=== PATIENT | female | born 1935 | race Caucasian/White ===

== ENCOUNTER 2019-06-01 08:44 | Inpatient (IN) | payer MEDICARE ==
[~2019-06-01] VITALS: Ht 157.5 cm; Wt 53.1 kg
--- NOTE | 2019-06-01 10:00 | NUR ---
The patient, MEGAN ELLIOTT, 83 y/o, F admitted by MARY RECINOS MD, was given written information regarding hospital policies, unit procedures and contact persons. Valuables checked and left in room with patient. Patient arrived to unit by EMS to room 252. Patient alert and oriented. Telemetry monitored applied. Patient in afib with rate of 99. Patient on room air, no complaints of shortness of breath. NS running at 100 mls/hr from EMS. Family notified of admission. Patient resting comfortably in bed. Call light within reach. Will continue to monitor.
[2019-06-01 10:46] VITALS: BP 137/71
[2019-06-01] MEDS ORDERED: LISI-334 PO (11:27)
[2019-06-01] MEDS ORDERED: PHEN300C4 PO (11:27)
[2019-06-01] MEDS ORDERED: AMLO5TAB10 PO (11:27)
[2019-06-01] MEDS ORDERED: FOLI1TAB16 PO (11:27)
[2019-06-01] MEDS: METOPROLOL TART IMMED RELEASE 25 MG TABLET. PO SCH ×2 (13:04→21:05)
--- NOTE | 2019-06-01 13:10 | PDOC2 ---
CARDIAC CONSULT DATE OF CONSULT Date of Consult DATE: 06/01/19 TIME: 13:03 REASON FOR CONSULT Reason for Consult: New onset AFIB REFERRING PHYSICIAN Referring Physician: Cas SOURCE Source: Chart review, Patient HISTORY OF PRESENT ILLNESS HISTORY OF PRESENT ILLNESS This is a pleasant 83 yo female admitted for complains of fall. She was initially at [facility] and was noted with right hip fracture in relation to her fall. Also she was noted with controllled AFIB which is a new finding. No complains of chest pain palpitations or frequent dizzy spells or passing out. She has hx of seizures and takes dilatin and sees Dr. Elliott. She had a stroke about 3 yrs ago. She has this head bobbing and ataxic features since her stroke and daughter whom she lives with could not tell any difference iof this is worse or not. She definitely is not complaint with walker and cane use. In the last 1 weeks she has fallen 3x. No lost of consciousness. This time resulted to rig ht hip fracture and some other time not too long ago resulted to mild broken ankle requiring a cam boot. No CAD, bleeding history, VTE and no known stress test nor outpt event monitor use. On her recent fall she said that her foot got caught on a blanket and fell backward and hit her head on the floor as well and dazed afterwards. No MCKENNA, vertigo, dizziness. No recent focal deficits per daughter. No nausea vomiting, diarrhea. PAST MEDICAL HISTORY Cardiovascular: HTN Pulmonary: No pertinent hx CENTRAL NERVOUS SYSTEM: Seizure GI: No pertinent hx Heme/Onc: No pertinent hx Hepatobiliary: No pertinent hx Psych: No pertinent hx Musculoskeletal: Osteoarthritis Rheumatologic: No pertinent hx Infectious disease: No pertinent hx ENT: No pertinent hx Renal/: Other (hyponatremia) Endocrine: No pertinent hx Dermatology: No pertinent hx PAST SURGICAL HISTORY Past Surgical History: No pertinent history FAMILY HISTORY Family History: Coronary Artery Disease (mother) SOCIAL HISTORY Smoke: Quit ALCOHOL: none Drugs: None ALLERGIES ALLERGIES: Coded Allergies: No Known Drug Allergies (Unverified , 06/01/19) ROS Review of System 14 point ROS evaluated with pertinent positives noted per HPI PHYSICAL EXAM General: Alert, Oriented X3, Cooperative HEENT: Atraumatic, Mucous membr. moist/pink Heart: Normal S1, Normal S2, Other (AFIB; 2/6 systolic murmur to LLS border) Abdomen: Soft, No tenderness Extremities: No cyanosis, Other (1+ bilateral LE pitting edema) Skin: No breakdown, No significant lesion Neuro: Normal speech, Sensation intact, Other Psych/Mental Status: Mental status NL, Mood NL MUSCULOSKELETAL: Osteoarthritic changes both hands, Other VITALS/I&O VITALS/I&O: Vital Signs Date Time Temp Pulse Resp B/P (MAP) Pulse Ox O2 Delivery O2 Flow Rate FiO2 06/01/19 10:54 Room Air 06/01/19 10:46 97.6 119 16 137/71 (93) 95 97.6 ASSESSMENT/PLAN ASSESSMENT/PLAN 1. Traumatic mechanical fall: right hip fracture 2. New AFIB rate controlled 3. Hyponatremia; appears chronic 4. Hx of seizure and on dilantin 5. HTN: controlled 6. Ataxia/movement disorder with multiple falls: x3 in the last week. 7. Hx of CVA: no focal deficits Recommendations 1. TTE, TSH, lipids, Noncontrast head CT 2. Start on metoprolol. Hold other BP meds pending BP trend. No ACEi or HCTZ. 3. Discussed significantly with daughter in regards to stroke prevention for injury and bleeding, risks and benefits. Pending head CT would prefer [facility] for stroke prevention ELMA ROWLEY APRN Jun 01, 2019 13:10
[2019-06-01] MEDS ORDERED: ONDANSETRON PF 4 MG/2 ML VIAL. IV PRN (13:15)
[2019-06-01] MEDS ORDERED: fentaNYL PF VIAL 100 MCG/2 ML VIAL IV PRN ×2 (13:15)
[2019-06-01 13:23] LABS: PROTHROMBIN TIME PATIENT 14.3 SEC (11.7-14.0)
--- NOTE | 2019-06-01 13:25 | HP ---
ADMIT DATE: 06/01/2019 HISTORY OF PRESENT ILLNESS: The patient is an 83-year-old female patient. Dictation Ends Here. MARY RECINOS MD DR: ANTWAN/zulema JOB#: [id number] / [id number]
[2019-06-01 14:09] LABS: CHOLESTEROL/HDL RATIO 1.8
--- NOTE | 2019-06-01 14:31 | HP ---
ADMIT DATE: 06/01/2019 HISTORY OF PRESENT ILLNESS: The patient is an 83-year-old female patient, who apparently was brought to the Emergency Room of [facility] by the emergency medical personnel as she apparently was complaining of pain in her right knee after a mechanical trip and fall last evening at approximately 1930. No head injury, no loss of consciousness. The patient reports being unable to ambulate secondary to pain since that time. No numbness or tingling. No hip pain. No weakness or paraesthesia. No previous history of knee injury. Movement makes it worse. She has taken nothing to help with the pain. She apparently was evaluated in the Emergency Room and she has had x-ray of the right knee joint, showed that she has oblique and cross-table lateral views of the right knee, the impression was within the constraints of osteopenia. No evidence of acute fracture. If there is persistent clinical concern of fracture, followup radiographs in 10-14 days. She has small right knee joint effusion. Her right hip x-ray; however, showed a fracture of the proximal femur, appears to be subtrochanteric fracture versus intertrochanteric. Chest x-ray showed no infiltrate, no effusion, no pneumothorax. EKG showed she was in atrial fibrillation with rate controlled, not anticoagulated. Her lab work showed she has hyponatremia with serum sodium of 126, potassium 5.1. Her prothrombin time and INR are within normal limits. The patient was transferred to [facility] to consult the orthopedic surgeon. When I saw her, she continued to complain of pain in her right hip joint, but denied any other complaint. PAST MEDICAL HISTORY: Significant for seizure disorder for which she is on phenytoin. She is known also to have hypertension. She had an episode of hyponatremia before treated. At that time, she was on lisinopril and hydrochlorothiazide. In fact, on her last admission on 10/03/2014, her serum sodium was only 118. PAST SURGICAL HISTORY: Significant for cataract extraction. FAMILY HISTORY: Positive for myocardial infarction in her mother and sudden cardiac in her father. Her sister had brain tumor and one sister has breast cancer. SOCIAL HISTORY: She is , lives with her daughter. She used to be a smoker. She quit smoking about 35 years ago. She does not drink alcohol or use any recreational drugs. 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 REVIEW OF SYSTEMS: The patient denied any blurring vision. She did have cataract extracted, but no glaucoma or macular degeneration. Denied any headache, tinnitus or sensorineural deafness. Denied any nosebleeds, stuffy nose or postnasal drip. Denied any sore throat, sore tongue, toothache, hoarseness of voice or difficulty swallowing. Denied any nausea, vomiting, diarrhea or constipation. Denied any hematemesis, melena or hematochezia. Denied any dysuria, frequency or hematuria. Denied any chest pain, shortness of breath, orthopnea or paroxysmal nocturnal dyspnea. Denied any cough, phlegm or hemoptysis. PHYSICAL EXAMINATION: GENERAL: On arrival to the Emergency Room, she looked well and was clearly in no apparent respiratory distress, pale, but no jaundice, cyanosis or thyromegaly. No jugular venous distension. No limb edema. VITAL SIGNS: Her heart rate was 115, blood pressure was 133/70, temperature was 98.4, respiratory rate 22 and oxygen saturation was 96%. HEAD, EYES, EARS, NOSE AND THROAT: Normocephalic, atraumatic. NECK: Supple. HEART: Showed normal first and second heart sounds. No gallop, rub or murmur. CHEST: Clear to auscultation. No crepitation or rhonchi. ABDOMEN: Distended, soft, nontender. NEUROLOGIC: She is awake, alert, responding appropriately. All cranial nerves intact. EXTREMITIES: She moves extremities without difficulty. She normally ambulates without assistance or assistive devices; however, now unable to walk because of pain in her right hip joint. LABORATORY DATA: Her lab work this morning showed serum sodium of 126, potassium 5.1, chloride 93, bicarbonate 28, anion gap of 5, BUN 9, creatinine 0.7, estimated GFR was 80 mL per minute. Her glucose 137, calcium was 9.2, magnesium 2. Total bilirubin, AST, ALT, alkaline phosphatase were normal. Total protein was 6.6, albumin was 3.7. Her prothrombin time was 10.8, INR of 1. Her white cell count was 10,000, hemoglobin 12, hematocrit 35, MCV 97 and platelet count 252,000. Her chest x-ray showed the heart is mildly enlarged. Atherosclerotic calcification and tortuous aorta is seen. Suspected small hiatal hernia. No lobar consolidation, no pleural effusion or pneumothorax. Has background of mild emphysematous changes. Her x-ray of the hip and right joint showed impacted right intertrochanteric hip fracture. There is involvement of the lesser trochanter with possible lesser trochanteric avulsion. The knee x-ray showed within the constraints of osteopenia. No evidence of acute fracture. If there is persistent clinical concern of fracture, followup radiographs in 10-14 days recommended. She has also a small right-sided knee joint effusion. Her daughter reported that the patient was diagnosed before with phenytoin toxicity and she also stated that her mom seems to be wobbly and unsteady. Her phenytoin was cut down from 300 to 200 by her primary care physician, Dr. Duarte, although she normally follows with Dr. Elliott every 3 months to check the level of phenytoin. She is actually on following medications: She is on demeclocycline 150 mg twice a day, aspirin 81 mg once a day, hydrocodone/APAP 5/325 one tablet every 6 hours, phenytoin sodium extended release 300 mg at bedtime, buspirone 7.5 mg twice a day, folic acid 1 mg daily and Macrobid 100 mg twice a day. PLAN: My plan is to consult the rubberizing mechanic, consult the orthopedic surgeon. I will renew all her medications, particularly her phenytoin. We will check her random Dilantin level and consult the neurologist if deemed necessary. MARY RECINOS MD DR: ANTWAN/zulema JOB#: [id number] / [id number]
[2019-06-01 15:00] VITALS: BP 120/54
--- NOTE | 2019-06-01 15:25 | RAD ---
CT HEAD WO CONTRAST Date: 06/01/2019 2:20 PM Clinical Indication: Multiple falls, history of stroke, ataxia Comparison: None. Technique: 5 mm axial tomographic images were obtained of the head without contrast. These were viewed on brain and bone windows. One or more of the following dose reduction techniques were utilized: Automated exposure control (AEC), Adjustment of mA and/or kV according to patient size, Use of iterative reconstruction technique such as ASiR, CT scan done according to ALARA and image gently/image wisely Findings: Small focus of hyperattenuation in the right frontal lobe (image 18-19). Mild generalized cerebral and cerebellar volume loss. Moderate nonspecific periventricular hypoattenuation, most commonly seen with chronic small vessel ischemic disease. Calcified atherosclerosis of the bilateral cavernous and paraclinoid internal carotid arteries and intracranial vertebral arteries. The ventricles are normal in size, shape, and morphology. The retana-white matter junction is normal. The subarachnoid cisterns are patent. Mild sphenoid, frontal, and ethmoid sinus mucosal thickening. The visualized portions of the orbits and globes are normal. The mastoid air cells are clear. The starbucks clerk topogram shows no lytic lesion or fracture. Impression: Small focus of hyperattenuation in the right frontal lobe, which may represent acute blood products given history of falls. Moderate chronic small vessel ischemic disease and moderate cerebral volume loss. Mild cerebral volume loss. Moderate chronic small vessel ischemic disease. Electronically signed by: Senthil Watts MD (06/01/2019 3:22 PM) [id number]
--- NOTE | 2019-06-01 15:58 | CARD ---
MR#: [id number] Date of Study: 06/01/2019 Ordering Physician: ELMA ROWLEY, Referring Physician: MARY RECINOS, Tech: Tere Tamayo APPROVED REPORT EXAM: Two-dimensional and M-mode echocardiogram with Doppler and color Doppler. Other Information Quality : AverageHR: 95bpm INDICATION Arrhythmia 2D DIMENSIONS RVDd3.0 (2.9-3.5cm)Left Atrium(2D)3.8 (1.6-4.0cm) IVSd2.0 (0.7-1.1cm)Aortic Root(2D)3.0 (2.0-3.7cm) LVDd4.1 (3.9-5.9cm)LVOT Diameter2.0 (1.8-2.4cm) PWd1.0 (0.7-1.1cm)LVDs2.3 (2.5-4.0cm) FS (%) 38.8 %SV40.5 ml Aortic Valve AoV Peak Alexander.135.2cm/sAoV VTI30.1cm AO Peak GR.7.3mmHgLVOT VTI 18.17cm AO Mean GR.6mmHg Mitral Valve MV E Ayptxokn82.1cm/s TDI Lateral E' P. V13.97cm/sMedial E' P. V10.81cm/s E/Lateral E'6.8E/Medial E'8.8 Tricuspid Valve TR P. [id number]/sRAP [id number] TR Peak Gr.[id number] LEFT VENTRICLE The left ventricle is normal size. There is normal left ventricular wall thickness. The left ventricu lar systolic function is normal and the ejection fraction is within normal range. The Ejection Fracti on is 55-60%. There is normal LV segmental wall motion. Diastology indeterminate due to afib. RIGHT VENTRICLE The right ventricle is normal size. There is normal right ventricular wall thickness. The right ventr icular systolic function is normal. ATRIA The left atrium size is normal. The right atrium is dilated. The interatrial septum is intact with no evidence for an atrial septal defect or patent foramen ovale as noted on 2-D or Doppler imaging. AORTIC VALVE The aortic valve is normal in structure and function. Doppler and Color Flow revealed no significant aortic regurgitation. There is no significant aortic valvular stenosis. MITRAL VALVE The mitral valve is normal in structure and function. The mitral valve is mildly thickened. There is no evidence of mitral valve prolapse. There is no mitral valve stenosis. Doppler and Color-flow revea led mild mitral regurgitation. TRICUSPID VALVE The tricuspid valve is normal in structure and function. Doppler and Color Flow revealed mild to mode rate tricuspid regurgitation with an estimated PAP of 38 mmHg. There is no tricuspid valve prolapse o r vegetation. There is no tricuspid valve stenosis. PULMONIC VALVE The pulmonic valve is not well visualized. Doppler and Color Flow revealed no pulmonic valvular regur gitation. GREAT VESSELS The aortic root is normal in size. The IVC is normal in size and collapses >50% with inspiration. PERICARDIAL EFFUSION There is no evidence of significant pericardial effusion. Critical Notification Critical Value: No <Conclusion> The left ventricle is normal size. The left ventricular systolic function is normal and the ejection fraction is within normal range. The Ejection Fraction is 55-60%. There is no significant aortic valvular stenosis. Doppler and Color Flow revealed no significant aortic regurgitation. Doppler and Color-flow revealed mild mitral regurgitation. Doppler and Color Flow revealed mild to moderate tricuspid regurgitation with an estimated PAP of 38 mmHg. Signed by : Reg Coats MD Electronically Approved : 06/01/2019 15:57:58
[2019-06-01 19:26] VITALS: BP 112/60
[2019-06-01] MEDS: FOLIC ACID 1 MG TABLET. PO SCH (21:02)
[2019-06-01] MEDS: PHENYTOIN SODIUM EXTENDED 100 MG CAPSULE PO SCH (21:02)
[2019-06-01 22:57] VITALS: BP 109/63
[2019-06-02] VITALS (11 sets, daily range): BP systolic 110–145; BP diastolic 60–79
[2019-06-02 08:16] LABS: HEMATOCRIT 33.5 % (36.0-47.0); HEMOGLOBIN 11.3 g/dL (12.0-15.5); RED BLOOD COUNT 3.46 x10^6/uL (3.50-5.40); RED CELL DISTRIBUTION WIDTH 13.3 % (11.5-14.5); WHITE BLOOD COUNT 8.3 x10^3/uL (4.0-11.0)
[2019-06-02] MEDS ORDERED: IV RINGERS,LACTATED 1000ML 1,000 ML IV SCH (08:33)
[2019-06-02 08:41] LABS: ALBUMIN 3.1 g/dL (3.4-5.0); ALBUMIN/GLOBULIN RATIO 1.1 (1.0-1.7); ALK PHOS 87 U/L (46-116); ALT (SGPT) 21 U/L (14-59); ANION GAP 8 (6-14); AST (SGOT) 21 U/L (15-37); BLOOD UREA NITROGEN 10 mg/dL (7-20); BUN/CREATININE RATIO 14 (6-20); CALCIUM 8.3 mg/dL (8.5-10.1); CARBON DIOXIDE 25 mmol/L (21-32); CHLORIDE 94 mmol/L (98-107); CREATININE 0.7 mg/dL (0.6-1.0); GFR 80.1; GLUCOSE 103 mg/dL (70-99); PHENY 22.9 mcg/mL (10.0-20.0); POTASSIUM 4.4 mmol/L (3.5-5.1); SODIUM 127 mmol/L (136-145); TOTAL BILIRUBIN 0.6 mg/dL (0.2-1.0)
[2019-06-02] MEDS ORDERED: PROCHLORPERAZINE 10 MG/2 ML VIAL. IV PRN (08:45)
[2019-06-02] MEDS ORDERED: MORPHINE SULFATE 2 MG/ML VIAL. IV PRN ×2 (08:45→18:00)
[2019-06-02] MEDS ORDERED: ONDANSETRON PF 4 MG/2 ML VIAL. IV PRN ×2 (08:45→18:00)
[2019-06-02] MEDS ORDERED: LIDOCAINE 1% PF 2 ML VIAL. ID PRN (08:45)
[2019-06-02] MEDS ORDERED: fentaNYL PF VIAL 100 MCG/2 ML VIAL IV PRN ×3 (08:45→18:00)
[2019-06-02] MEDS ORDERED: HYDROmorphone 2 MG/ML VIAL IV PRN (08:45)
[2019-06-02] MEDS: amLODIPine BESYLATE 5 MG TABLET PO SCH (09:00)
[2019-06-02] MEDS: LISINOPRIL 20 MG TABLET PO SCH (09:00)
--- NOTE | 2019-06-02 09:29 | PDOC2 ---
NEUROLOGY CONSULT Date of Admission Date of Admission DATE: 06/02/19 TIME: 09:23 Reason for Consult Reason for Consult: Falls Referring Physician Referring Physician: Dr. Cardozo Source Source: Chart review, Patient History of Present Illness History of Present Illness The patient is an 83-year-old right-handed female who fell and broke her right hip. She says it she intermittently uses her cane. She denies vertigo, diplopia, dysphagia, dysarthria, numbness, weakness, but feels off balance at times. She has never lost consciousness or hit her head. There is no history of stroke or head injury. 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 Elliott every 2 months and takes phenytoin. Her last seizure was more than a year ago. She did have an abnormal head CT as reviewed below. Past Medical History Cardiovascular: HTN CENTRAL NERVOUS SYSTEM: Seizure Past Surgical History Past Surgical History: No pertinent history Family History Family History: No pertinent hx Social History Social History , lives with daughter, ex-smoker, no alcohol, retired Current Medications Current Medications Current Medications Metoprolol Tartrate (Lopressor) 25 mg BID PO Last administered on 06/01/19at 21:05; Start 06/01/19 at 13:00 Amlodipine Besylate (Norvasc) 5 mg DAILY PO ; Start 06/02/19 at 09:00 Folic Acid (Folic Acid) 1 mg HS PO Last administered on 06/01/19at 21:02; Start 06/01/19 at 21:00 Lisinopril (Prinivil) 20 mg DAILY PO ; Start 06/02/19 at 09:00 Phenytoin Sodium (Dilantin) 100 mg QHS PO Last administered on 06/01/19at 21:02; Start 06/01/19 at 21:00 Ondansetron HCl (Zofran) 4 mg PRN Q4HRS PRN IV NAUSEA/VOMITING; Start 06/01/19 at 13:15 Fentanyl Citrate (Fentanyl 2ml Vial) 25 mcg PRN Q3HRS PRN IV MODERATE PAIN Last administered on 06/01/19at 15:16; Start 06/01/19 at 13:15 Fentanyl Citrate (Fentanyl 2ml Vial) 50 mcg PRN Q3HRS PRN IV SEVERE PAIN; Start 06/01/19 at 13:15 Ondansetron HCl (Zofran) 4 mg PRN Q6HRS PRN IV NAUSEA/VOMITING; Start 06/02/19 at 08:45; Stop 06/03/19 at 08:44 Fentanyl Citrate (Fentanyl 2ml Vial) 25 mcg PRN Q5MIN PRN IV MILD PAIN 1-3; Start 06/02/19 at 08:45; Stop 06/03/19 at 08:44 Fentanyl Citrate (Fentanyl 2ml Vial) 50 mcg PRN Q5MIN PRN IV MODERATE TO SEVERE PAIN; Start 06/02/19 at 08:45; Stop 06/03/19 at 08:44 Morphine Sulfate (Morphine Sulfate) 1 mg PRN Q10MIN PRN IV SEVERE PAIN 7-10; Start 06/02/19 at 08:45; Stop 06/03/19 at 08:44 Ringer's Solution 1,000 ml @ 30 mls/hr Q24H IV ; Start 06/02/19 at 08:33; Stop 06/02/19 at 20:32 Lidocaine HCl (Xylocaine-Mpf 1% 2ml Vial) 2 ml 1X PRN PRN ID IV START; Start 06/02/19 at 08:45; Stop 06/03/19 at 08:44 Hydromorphone HCl (Dilaudid) 0.5 mg PRN Q10MIN PRN IV SEV PAIN, Second choice; Start 06/02/19 at 08:45; Stop 06/03/19 at 08:44 Prochlorperazine Edisylate (Compazine) 5 mg PACU PRN PRN IV NAUSEA, MRX1; Start 06/02/19 at 08:45; Stop 06/03/19 at 08:44 Active Scripts Active Reported Amlodipine Besylate 5 Mg Tablet 5 Mg PO DAILY Lisinopril 20 Mg Tablet 20 Mg PO DAILY Phenytoin Sodium Extended 300 Mg Capsule 300 Mg PO HS Folic Acid 1 Mg Tablet 1 Tab PO HS Allergies Allergies: Coded Allergies: No Known Drug Allergies (Unverified , 06/01/19) ROS Review of System Negative for fever, chills, weight loss, shortness of breath, chest pain, indigestion, hematochezia, melena, and dysuria. Full 14-point review of systems is negative. Physical Exam Physical Examination General: Well-developed, well-nourished white female in no acute distress HEENT: Normocephalic and�atraumatic. Temporal arteries�pulsatile and nontender.� Neck: Supple without bruit, no meningismus� Musculoskeletal: Stability:�see neurologic. Gait exam:�see neurologic. Tone:�see rohith rologic.�Strength:�see neurologic.� Neurological: Mental Status:�intact, orientation, memory, attention span/concentration, lang uage, fund of knowledge normal. Cranial Nerves:�Pupils equal and reactive to light, extraocular movements are�intact, visual harley are full to confrontation. Facial sensation is normal. There is no facial asymmetry. Vestibulo-ocular reflex is intact. Palate elevates and tongue protrudes in midline. All other cranial related problems are negative except as mentioned before.�Reflexes:�2+ and symmetric with flexor plantar responses. Motor:� right leg not tested, otherwise 5/5 strength with normal tone and bulk. Coordination:�Finger-nose finger and wtyf-nx-aoyr testing are normal. Rapid alternating movements and fine finger movements are intact. Gait:� not tested. Sensory:�Stocking pinprick loss Vitals VITALS Vital Signs Date Time Temp Pulse Resp B/P (MAP) Pulse Ox O2 Delivery O2 Flow Rate FiO2 06/02/19 07:00 98.0 81 16 110/63 (79) 95 Room Air 98.0 Labs Labs Laboratory Tests Test 06/01/19 13:05 06/01/19 13:10 06/02/19 08:00 Prothrombin Time 14.3 SEC (11.7-14.0) Prothromb Time International Ratio 1.1 (0.8-1.1) Thyroid Stimulating Hormone (TSH) 0.616 uIU/mL (0.358-3.74) Creatine Kinase 153 U/L (26-192) Triglycerides Level 37 mg/dL (0-150) Cholesterol Level 168 mg/dL (0-200) LDL Cholesterol, Calculated 65 mg/dL (0-100) VLDL Cholesterol, Calculated 7 mg/dL (0-40) Non-HDL Cholesterol Calculated 72 mg/dL (0-129) HDL Cholesterol 96 mg/dL (40-60) Cholesterol/HDL Ratio 1.8 White Blood Count 8.3 x10^3/uL (4.0-11.0) Red Blood Count 3.46 x10^6/uL (3.50-5.40) Hemoglobin 11.3 g/dL (12.0-15.5) Hematocrit 33.5 % (36.0-47.0) Mean Corpuscular Volume 97 fL (79-100) Mean Corpuscular Hemoglobin 33 pg (25-35) Mean Corpuscular Hemoglobin Concent 34 g/dL (31-37) Red Cell Distribution Width 13.3 % (11.5-14.5) Platelet Count 180 x10^3/uL (140-400) Sodium Level 127 mmol/L (136-145) Potassium Level 4.4 mmol/L (3.5-5.1) Chloride Level 94 mmol/L (98-107) Carbon Dioxide Level 25 mmol/L (21-32) Anion Gap 8 (6-14) Blood Urea Nitrogen 10 mg/dL (7-20) Creatinine 0.7 mg/dL (0.6-1.0) Estimated GFR (Cockcroft-Gault) 80.1 BUN/Creatinine Ratio 14 (6-20) Glucose Level 103 mg/dL (70-99) Calcium Level 8.3 mg/dL (8.5-10.1) Total Bilirubin 0.6 mg/dL (0.2-1.0) Aspartate Amino Transf (AST/SGOT) 21 U/L (15-37) Alanine Aminotransferase (ALT/SGPT) 21 U/L (14-59) Alkaline Phosphatase 87 U/L (46-116) Total Protein 6.0 g/dL (6.4-8.2) Albumin 3.1 g/dL (3.4-5.0) Albumin/Globulin Ratio 1.1 (1.0-1.7) Phenytoin (Dilantin) Level 22.9 mcg/mL (10.0-20.0) Phenytoin Last Dose Date 06/01/19 Phenytoin Last Dose Time 1900 Laboratory Tests Test 06/01/19 13:05 06/01/19 13:10 06/02/19 08:00 Prothrombin Time 14.3 SEC (11.7-14.0) Prothromb Time International Ratio 1.1 (0.8-1.1) Thyroid Stimulating Hormone (TSH) 0.616 uIU/mL (0.358-3.74) Creatine Kinase 153 U/L (26-192) Triglycerides Level 37 mg/dL (0-150) Cholesterol Level 168 mg/dL (0-200) LDL Cholesterol, Calculated 65 mg/dL (0-100) VLDL Cholesterol, Calculated 7 mg/dL (0-40) Non-HDL Cholesterol Calculated 72 mg/dL (0-129) HDL Cholesterol 96 mg/dL (40-60) Cholesterol/HDL Ratio 1.8 White Blood Count 8.3 x10^3/uL (4.0-11.0) Red Blood Count 3.46 x10^6/uL (3.50-5.40) Hemoglobin 11.3 g/dL (12.0-15.5) Hematocrit 33.5 % (36.0-47.0) Mean Corpuscular Volume 97 fL (79-100) Mean Corpuscular Hemoglobin 33 pg (25-35) Mean Corpuscular Hemoglobin Concent 34 g/dL (31-37) Red Cell Distribution Width 13.3 % (11.5-14.5) Platelet Count 180 x10^3/uL (140-400) Sodium Level 127 mmol/L (136-145) Potassium Level 4.4 mmol/L (3.5-5.1) Chloride Level 94 mmol/L (98-107) Carbon Dioxide Level 25 mmol/L (21-32) Anion Gap 8 (6-14) Blood Urea Nitrogen 10 mg/dL (7-20) Creatinine 0.7 mg/dL (0.6-1.0) Estimated GFR (Cockcroft-Gault) 80.1 BUN/Creatinine Ratio 14 (6-20) Glucose Level 103 mg/dL (70-99) Calcium Level 8.3 mg/dL (8.5-10.1) Total Bilirubin 0.6 mg/dL (0.2-1.0) Aspartate Amino Transf (AST/SGOT) 21 U/L (15-37) Alanine Aminotransferase (ALT/SGPT) 21 U/L (14-59) Alkaline Phosphatase 87 U/L (46-116) Total Protein 6.0 g/dL (6.4-8.2) Albumin 3.1 g/dL (3.4-5.0) Albumin/Globulin Ratio 1.1 (1.0-1.7) Phenytoin (Dilantin) Level 22.9 mcg/mL (10.0-20.0) Phenytoin Last Dose Date 06/01/19 Phenytoin Last Dose Time [address] HEAD WO CONTRAST Date: 06/01/2019 2:20 PM Clinical Indication: Multiple falls, history of stroke, ataxia Comparison: None. Technique: 5 mm axial tomographic images were obtained of the head without contrast. These were viewed on brain and bone windows. One or more of the following dose reduction techniques were utilized: Automated exposure control (AEC), Adjustment of mA and/or kV according to patient size, Use of iterative reconstruction technique such as ASiR, CT scan done according to ALARA and image gently/image wisely Findings: Small focus of hyperattenuation in the right frontal lobe (image 18-19). Mild generalized cerebral and cerebellar volume loss. Moderate nonspecific periventricular hypoattenuation, most commonly seen with chronic small vessel ischemic disease. Calcified atherosclerosis of the bilateral cavernous and paraclinoid internal carotid arteries and intracranial vertebral arteries. The ventricles are normal in size, shape, and morphology. The retana-white matter junction is normal. The subarachnoid cisterns are patent. Mild sphenoid, frontal, and ethmoid sinus mucosal thickening. The visualized portions of the orbits and globes are normal. The mastoid air cells are clear. The die maintenance topogram shows no lytic lesion or fracture. Impression: Small focus of hyperattenuation in the right frontal lobe, which may represent acute blood products given history of falls. Moderate chronic small vessel ischemic disease and moderate cerebral volume loss. Mild cerebral volume loss. Moderate chronic small vessel ischemic disease. Assessment/Plan Assessment/Plan Impression: Mechanical falls, by description she has some multifactorial gait disorder which of course I cannot violate given the acute hip fracture, but I find no evidence of Parkinson's, stroke, normal pressure hydrocephalus, myelopathy, radiculopathy, or myopathy. Abnormal head CT, probably just an incidentaloma in the right frontal lobe Epilepsy, stable, But she is listed for just 100 mg of phenytoin at bedtime Sensory loss in the feet, consider neuropathy Recommendations: Check phenytoin level Check laboratory studies for causes of neuropathy MRI of the brain, if negative for anything acute, cleared for surgery this afternoon I asked nurse to verify the low phenytoin dose Thank you for letting me help the patient's care. STONEY COPELAND MD Jun 02, 2019 09:29
[2019-06-02] MEDS: METOPROLOL TART IMMED RELEASE 25 MG TABLET. PO SCH ×2 (10:09→20:21)
--- NOTE | 2019-06-02 10:31 | RAD ---
BRAIN W/O CONTRAST Date: 06/02/2019 8:00 AM Indication: Abnormal head CT, recent falls Comparison: CT head 06/01/2019. Technique: Multiplanar multisequence MRI of the brain was performed without intravenous contrast using the standard protocol. Findings: Extensive patient motion artifact degrades image quality. No acute infarct. No evidence acute hemorrhage. The ventricles are normal in size and configuration without hydrocephalus. Extensive scattered FLAIR hyperintensities in the subcortical and periventricular deep white matter as well as the zandra, a nonspecific finding, most commonly seen with chronic small vessel ischemic disease. Moderate generalized cerebral and cerebellar volume loss. Tiny area of right frontal encephalomalacia. The scalp and calvarium are normal. The pituitary and sella are normal. No Chiari malformation. The visualized upper cervical spine is normal. The visualized orbits and globes are normal. Mild paranasal sinus mucosal thickening. The mastoid air cells are clear. Normal flow voids within the vertebral, basilar, and internal carotid arteries indicating patency. IMPRESSION: Extensive patient motion degrades image quality. Allowing for this, there is no focal abnormality identified corresponding with the hyperattenuating focus seen on the recent CT head. This might represent a trace amount of acute blood products or potentially mineralization below the sensitivity threshold for MRI. Follow-up CT head should be considered to assess stability. No acute infarct. No mass. No hydrocephalus. Extensive chronic small vessel ischemic disease and moderate generalized cerebral volume loss. Tiny area of right frontal encephalomalacia. Electronically signed by: Senthil Watts MD (06/02/2019 10:28 AM) [id number]
--- NOTE | 2019-06-02 10:53 | PDOC ---
CARDIO Progress Notes Date and Time Date of Service 06/02/2019 Time of Evaluation 1000 Subjective Subjective: No Chest Pain, No shortness of breath, No Palpitations, Other (right hip pain controlled) Vitals Vitals Vital Signs Date Time Temp Pulse Resp B/P (MAP) Pulse Ox O2 Delivery O2 Flow Rate FiO2 06/02/19 10:09 81 110/63 06/02/19 08:00 Room Air 06/02/19 07:00 98.0 16 95 98.0 Weight Weight [ ] Input and Output Intake and Output Intake and Output 06/02/19 07:00 Intake Total 100 ml Output Total 1500 ml Balance -1400 ml Intake Oral 100 ml Output Urine Total 1500 ml Laboratory Labs Laboratory Tests Test 06/01/19 13:05 06/01/19 13:10 06/02/19 08:00 Prothrombin Time 14.3 SEC (11.7-14.0) Prothromb Time International Ratio 1.1 (0.8-1.1) Thyroid Stimulating Hormone (TSH) 0.616 uIU/mL (0.358-3.74) Creatine Kinase 153 U/L (26-192) Triglycerides Level 37 mg/dL (0-150) Cholesterol Level 168 mg/dL (0-200) LDL Cholesterol, Calculated 65 mg/dL (0-100) VLDL Cholesterol, Calculated 7 mg/dL (0-40) Non-HDL Cholesterol Calculated 72 mg/dL (0-129) HDL Cholesterol 96 mg/dL (40-60) Cholesterol/HDL Ratio 1.8 White Blood Count 8.3 x10^3/uL (4.0-11.0) Red Blood Count 3.46 x10^6/uL (3.50-5.40) Hemoglobin 11.3 g/dL (12.0-15.5) Hematocrit 33.5 % (36.0-47.0) Mean Corpuscular Volume 97 fL (79-100) Mean Corpuscular Hemoglobin 33 pg (25-35) Mean Corpuscular Hemoglobin Concent 34 g/dL (31-37) Red Cell Distribution Width 13.3 % (11.5-14.5) Platelet Count 180 x10^3/uL (140-400) Sodium Level 127 mmol/L (136-145) Potassium Level 4.4 mmol/L (3.5-5.1) Chloride Level 94 mmol/L (98-107) Carbon Dioxide Level 25 mmol/L (21-32) Anion Gap 8 (6-14) Blood Urea Nitrogen 10 mg/dL (7-20) Creatinine 0.7 mg/dL (0.6-1.0) Estimated GFR (Cockcroft-Gault) 80.1 BUN/Creatinine Ratio 14 (6-20) Glucose Level 103 mg/dL (70-99) Calcium Level 8.3 mg/dL (8.5-10.1) Total Bilirubin 0.6 mg/dL (0.2-1.0) Aspartate Amino Transf (AST/SGOT) 21 U/L (15-37) Alanine Aminotransferase (ALT/SGPT) 21 U/L (14-59) Alkaline Phosphatase 87 U/L (46-116) Total Protein 6.0 g/dL (6.4-8.2) Albumin 3.1 g/dL (3.4-5.0) Albumin/Globulin Ratio 1.1 (1.0-1.7) Phenytoin (Dilantin) Level 22.9 mcg/mL (10.0-20.0) Phenytoin Last Dose Date 06/01/19 Phenytoin Last Dose Time 1900 Physical Exam HEENT: Neck Supple W Full Motion Chest: Symmetric LUNGS: Other (diminished bases) Heart: irregularly irregular (AFIB rate controlled) Abdomen: Soft N/T Extremities: No Calf Tenderness Neurology: alert, oriented, follow commands Assessment Assessment 1. Traumatic mechanical fall: right hip fracture 2. New AFIB rate controlled. EF and WM nml 3. Bradyarrhythmia: x2 3 sec pauses with BB use 4. Hyponatremia; appears chronic 5. Hx of seizure and on dilantin 6. HTN: controlled 7. Ataxia/movement disorder with multiple falls: x3 in the last week. abnormal CT MRI pending, neuro following 8. Hx of CVA: no focal deficits Recommendations 1. DC metoprolol and monitor HR trend. Once hip surgery is done then will reval use of norvasc pending BP trend. No lisinopril with persistent low Na 2. If no contraindication then will start on ECASA 325 mg daily. Not a candidate for long-term anticoagulation due to high risk for injury and bleed. Discussed with daughter and pt and would prefer ASA at this time 3. Supportive care ELMA ROWLEY APRN Jun 02, 2019 10:53
--- NOTE | 2019-06-02 11:25 | PN ---
DATE: 06/02/2019 SUBJECTIVE: The patient is sitting slightly propped up in bed, in no apparent respiratory distress. On questioning her, denied any complaint, in particular denied any pain in her right hip as long as she is sitting still. Denied any chest pain or shortness of breath. Denied any headache. She apparently has had a CT scan of the head without contrast, which showed that the patient had a small focus of hyperattenuation in the right frontal lobe, which may represent acute blood products given history of falls. She has moderate chronic small vessel ischemic disease and moderate cerebral volume loss. She was seen in consultation by the neurologist and she is scheduled for an MRI today and also for definitive surgical treatment of her right intertrochanteric hip fracture this afternoon at 2:30. PHYSICAL EXAMINATION: GENERAL: When I examined her this morning, she looked well and was clearly in no apparent respiratory distress. No pallor, jaundice, cyanosis, or thyromegaly. No jugular venous distension. No lower limb edema. VITAL SIGNS: Her heart rate was 103, blood pressure 112/73, temperature was 99.6, respiratory rate was 16, and oxygen saturation was 96%. HEAD, EYES, EARS, NOSE AND THROAT: Normocephalic, atraumatic. NECK: Supple. HEART: Showed normal first and second heart sounds. No gallop, rub or murmur. CHEST: Clear to auscultation. No crepitation or rhonchi. ABDOMEN: Distended, soft, nontender. NEUROLOGIC: She is awake, alert, responding appropriately. All cranial nerves intact. She moves her extremities without difficulty. Her intake and output were incompletely recorded. LABORATORY DATA: As of this morning showed a white cell count of 8300, hemoglobin 11, hematocrit 33, MCV 97, and platelet count of 180,000. Her prothrombin time was 14.3, INR 1.1. Her chemistry showed that her serum triglycerides were 37. Total cholesterol 168, LDL cholesterol 65, VLDL was 7, HDL cholesterol was 96, and cholesterol to HDL ratio was 1.8. Her TSH was 0.616. ASSESSMENT: 1. Mechanical fall with resultant right intertrochanteric hip fracture. 2. Atrial fibrillation. 3. Seizure disorder, for which she is on Dilantin. 4. Hypertension. 5. Ataxia, likely due to Dilantin overdose. We sent blood phenytoin level the result of which is still pending at the time of this dictation. I also spoke with the patient and she states that she wants to be full code. PLAN: Obviously await the MRI as well as surgical intervention today. MARY RECINOS MD DR: ANTWAN/zulema JOB#: [id number] / [id number]
--- NOTE | 2019-06-02 15:04 | NUR ---
SS following for discharge planning. SS reviewed pt chart. Pt is from home with family and is currently on room air. No discharge needs noted at this time. SS will continue to follow for discharge planning.
[2019-06-02] MEDS ORDERED: ROCURONIUM 50 MG/5 ML VIAL. ONE (16:02)
[2019-06-02] MEDS ORDERED: DEXAMETHASONE SOD PHOS 4 MG/ML VIAL ONE (16:02)
[2019-06-02] MEDS ORDERED: ONDANSETRON PF 4 MG/2 ML VIAL. ONE (16:02)
[2019-06-02] MEDS ORDERED: LIDOCAINE 2% PF 5 ML VIAL. ONE (16:02)
[2019-06-02] MEDS ORDERED: FAMOTIDINE 20 MG/2 ML VIAL ONE (16:02)
[2019-06-02] MEDS ORDERED: PROPOFOL 20 ML IV ONE (16:02)
[2019-06-02] MEDS ORDERED: fentaNYL PF VIAL 100 MCG/2 ML VIAL ONE (16:02)
[2019-06-02] MEDS ORDERED: PHENYLEPHRINE in 0.9% NACL PF 1 MG/10 ML SYRINGE. IV ONE (16:53)
[2019-06-02] MEDS ORDERED: ceFAZolin SODIUM 1 GM VIAL ONE (16:54)
[2019-06-02] MEDS ORDERED: NEOSTIGMINE METHYLSULFATE 5 MG/5 ML SYRINGE. ONE (17:06)
[2019-06-02] MEDS ORDERED: GLYCOPYRROLATE 1 MG/5 ML VIAL. ONE (17:06)
[2019-06-02] MEDS ORDERED: POLYETHYLENE GLYCOL 3350 17 GM PACKET. PO PRN (18:00)
[2019-06-02] MEDS ORDERED: traMADol 50 MG TABLET PO PRN (18:00)
[2019-06-02] MEDS ORDERED: DEXTROSE 50% 25 GM / 50ML DISP.SYRIN. IV PRN (18:00)
[2019-06-02] MEDS ORDERED: oxyCODONE IR 5 MG TABLET PO PRN (18:00)
--- NOTE | 2019-06-02 18:07 | PDOC4 ---
Operative Note Operative Note Date of surgery: 06/02/2019 Preoperative diagnosis: Displaced right intertrochanteric hip fracture Postoperative diagnosis: Same Operative procedure: Operative reduction internal fixation right intertrochanteric hip fracture Surgeon: Laura Anesthesia: Gen. Estimated blood loss: 100 mL Complications: None Operative indications: Patient is an 83-year-old female with a displaced intertrochanteric hip fracture please see my detailed orthopedic consultation for operative indications. Note that I reviewed with the family immobility related concerns with nonoperative treatment and the possible risks of infection nonhealing hardware failure nerve or blood vessel damage continued pain and weakness medical or other anesthetic complications among others she agrees to proceed with surgical evaluation and treatment. Operative text: Patient was identified procedure verified patient placed in the supine position on the operating table. After adequate amounts of general anesthesia were administered she was placed on the [place] fracture table right leg was placed in traction left leg placed in the well-leg salazar and all bony prominences were well padded. Right hip was reduced under traction under fluoroscopic guidance and after I'm out was performed patient procedure identified and verified left hip was prepped and draped in standard sterile fashion and incision was made proximal to the greater trochanteric entry point and entry awl was used to place a guidewire down the femoral canal entry reamer was passed along with reamer up to a size 14 mm down the femoral canal and a 13 x 130 mm short InterTAN nail was placed guidewire was drilled up the center of the femoral neck measured at 105 mm and a size 100 lag screw was inserted central in the femoral head and compression of about 5 mm obtained excellent stability was noted as well as hardware placement under multiple fluoroscopic views a distal locking screw in the static hole used to prevent any rotation after verification of hardware and fracture reduction traction was removed thorough irrigation carried out normal saline solution bleeding points controlled by electrocautery fascia was closed by #1 Vicryl suture subcutaneous closure with buried Vicryl suture skin closure with shaka sterile dressings were applied patient was returned to recovery room in stable condition having tolerated procedure well BRANDAN PARTIDA MD Jun 02, 2019 18:07
[2019-06-02] MEDS ORDERED: ceFAZolin SODIUM 1 GM in IV DEXTROSE 5% 50 ML IV SCH (18:15)
[2019-06-02] MEDS: FOLIC ACID 1 MG TABLET. PO SCH (19:44)
[2019-06-02] MEDS ORDERED: WARFARIN 5 MG TABLET. PO ONE (19:55)
[2019-06-02] MEDS: PHENYTOIN SODIUM EXTENDED 100 MG CAPSULE PO SCH (20:16)
--- NOTE | 2019-06-02 20:23 | NUR ---
Metoprolol held as directed by Cardiology as patient had X2 -3 second pauses today.
--- NOTE | 2019-06-02 20:41 | NUR ---
RN called for clarification with Dr Sanchez in regards to Warfarin order X 1. 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 INR 1.1. Patient is in afib. Per Dr Sanchez YES, give Warfarin as ordered due to RISK of blood clot from hip fracture and repair. RN will continue to monitor
[2019-06-02] MEDS: ceFAZolin SODIUM IV Push 1 GM VIAL. IVP SCH (21:09)
--- NOTE | 2019-06-03 00:42 | CONS ---
DATE OF CONSULTATION: 06/02/2019 ORTHOPEDIC CONSULTATION REQUESTING PHYSICIAN: Milka Cardozo MD. REASON FOR CONSULTATION: Right intertrochanteric hip fracture. HISTORY OF PRESENT ILLNESS: The patient is an 83-year-old female who sustained a trip and fall and was brought into the Emergency Department at [facility] in [place] complaining of right knee pain. She was unable to bear weight and was diagnosed with a displaced intertrochanteric hip fracture and was transferred to [place] for further evaluation and treatment. On talking with her, she indicates that she sustained no head injury, loss of consciousness, no other upper extremity injury. She does complain of some ongoing right knee pain and has not been able to put weight on the right leg. She denies any focal weakness, numbness or tingling and no previous history of a knee injury or symptoms. She was also noted to have atrial fibrillation on admission and is undergoing workup for that and is not on any type of anticoagulant. PAST MEDICAL HISTORY: Significant for seizure disorder, controlled on phenytoin. She also has hypertension and previous episodes of hyponatremia. PAST SURGICAL HISTORY: Cataract surgery. FAMILY HISTORY: Heart problems, brain tumor in her sister and breast cancer in another sister. SOCIAL HISTORY: She is , lives with her daughter. Quit smoking 35 years ago. Denies alcohol or drug use and is retired from housekeeping type work. REVIEW OF SYSTEMS: She denies any chest pain, no shortness of breath, visual changes, neck or back pain, focal weakness, numbness, tingling. Significant really only for the right hip and knee pain as noted above. PHYSICAL EXAMINATION: GENERAL: A pleasant, cooperative 83-year-old female, pleasant, conversational. HEENT: Atraumatic, normocephalic. MUSCULOSKELETAL: No tenderness on palpation over the neck or back. She has full range of motion of shoulder, elbow and wrist bilaterally with no tenderness, instability, swelling or skin abnormality. On examination of lower extremities, has clear deformity of her right lower extremity and right lower extremity is internally rotated and shortened. She has normal examination of the contralateral hip. Normal alignment and stability bilateral knees and ankles. IMAGING: X-rays show a displaced intertrochanteric right hip fracture. IMPRESSION: Displaced right intertrochanteric hip fracture. TREATMENT PLAN: I went over with the patient and her family the recommended treatment as well as operative and nonoperative treatment options and the risks, benefits, postoperative course of the recommended operative treatment. We went over immobility related concerns related to her nonoperative treatment options and the possibility of infection, nonhealing, nerve or blood vessel damage, medical or other anesthetic complications among others, associated with surgical treatment of her right hip fracture. We talked about the possibility of weightbearing restrictions, blood clots and their treatment among others. All her questions were answered. She wishes to proceed with surgical evaluation and treatment, which will occur today as she has had medical clearance. BRANDAN PARTIDA MD DR: CHARLENE/zulema JOB#: [id number] / [id number]
[2019-06-03 03:06] VITALS: BP 125/60
[2019-06-03 04:51] LABS: HEMATOCRIT 30.3 % (36.0-47.0); HEMOGLOBIN 10.3 g/dL (12.0-15.5); RED BLOOD COUNT 3.15 x10^6/uL (3.50-5.40); RED CELL DISTRIBUTION WIDTH 13.5 % (11.5-14.5)
[2019-06-03] MEDS: ceFAZolin SODIUM IV Push 1 GM VIAL. IVP SCH ×2 (04:56→09:44)
[2019-06-03 05:07] LABS: PHENY 17.8 mcg/mL (10.0-20.0)
[2019-06-03 05:50] LABS: ALBUMIN 2.7 g/dL (3.4-5.0); ALBUMIN/GLOBULIN RATIO 0.9 (1.0-1.7); CALCIUM 8.4 mg/dL (8.5-10.1); CREATININE 0.6 mg/dL (0.6-1.0); GFR 95.7; POTASSIUM 4.7 mmol/L (3.5-5.1); TOTAL BILIRUBIN 0.6 mg/dL (0.2-1.0); TOTAL PROTEIN 5.7 g/dL (6.4-8.2)
[2019-06-03] MEDS ORDERED: MAGNESIUM HYDROXIDE 2,400 MG/30 ML ORAL.SUSP. PO PRN (06:00)
[2019-06-03] MEDS: HYDROcodone/APAP 7.5/325MG 1 TAB TABLET PO PRN ×2 (06:16→21:35)
[2019-06-03 07:00] VITALS: BP 125/74
--- NOTE | 2019-06-03 08:42 | PN ---
DATE: 06/03/2019 SUBJECTIVE: She is resting slightly propped up in bed, in no apparent respiratory distress. Awake and alert. She apparently underwent operative reduction and internal fixation of the right intertrochanteric hip fracture successfully. On questioning her this morning, denied any complaint. Her pain is well controlled. She was started on Coumadin for deep venous thrombosis prophylaxis. PHYSICAL EXAMINATION: GENERAL: When I examined her, she looked pale. No jaundice, cyanosis, or thyromegaly. No jugular venous distension. No limb edema. VITAL SIGNS: Her heart rate was 94, blood pressure was 125/60, temperature was 98.9, respiratory rate 20, and oxygen saturation was 97% on 3 liters of oxygen. HEAD, EYES, EARS, NOSE AND THROAT: Normocephalic and atraumatic. NECK: Supple. HEART: Showed normal first and second heart sounds with no gallop, rub or murmur. CHEST: Clear to auscultation. No crepitation or rhonchi. ABDOMEN: Distended, soft, and nontender. NEUROLOGIC: She is awake, alert, responding appropriately. All her cranial nerves intact. She moves extremities without difficulty, although she is mostly bed bound. Her intake and output are incompletely recorded. LABORATORY DATA: Her lab work this morning showed a serum sodium of 126, potassium 4.7, chloride 93, bicarbonate 23, anion gap of 10, BUN 11, creatinine 0.6, estimated GFR was 96 mL per minute. Her glucose was 85, calcium was 8.4. Total bilirubin, AST, ALT, and alkaline phosphatase were normal. Total protein was 5.7, albumin was 2.7. Her TSH was 0.616 and her morning cortisol was 29.5 which is within expected level given the level of stress and pain. Her prothrombin time was 14.3 and INR 1.1. ASSESSMENT AND PLAN: 1. Mechanical fall with resultant right intertrochanteric hip fracture, status post open reduction and internal fixation. 2. Atrial fibrillation, rate controlled, no anticoagulation. 3. Seizure disorder for which she is on Dilantin. 4. Hypertension. 5. Ataxia could be due to Dilantin overdose. Her phenytoin level was extremely high, that might be contributing to her ataxia. She has had an MRI of the brain, which showed there is no focal abnormality identified corresponding with hyperattenuating focus seen on recent CT scan of the head. This might represent a trace amount of acute blood products and potentially mineralization with a sensitivity threshold of MRI. Followup CT head should be considered to assess stability, no evidence of acute infarct, no mass or hydrocephalus. My plan is to obviously start physical and occupational therapy. Continue with all other medications. She has hyponatremia for which she was at one point in time on demeclocycline. MARY RECINOS MD DR: ANTWAN/zulema JOB#: [id number] / [id number]
[2019-06-03] MEDS: amLODIPine BESYLATE 5 MG TABLET PO SCH (09:38)
[2019-06-03] MEDS: LISINOPRIL 20 MG TABLET PO SCH (09:39)
[2019-06-03] MEDS: METOPROLOL TART IMMED RELEASE 25 MG TABLET. PO SCH ×2 (09:39→21:12)
[2019-06-03] MEDS: SENNOSIDES/DOCUSATE 8.6/50MG TABLET. PO SCH (09:39)
[2019-06-03 11:00] VITALS: BP 120/52
--- NOTE | 2019-06-03 11:44 | PDOC ---
PROGRESS NOTES Assessment Mechanical falls, by description she has some multifactorial gait disorder which of course I cannot violate given the acute hip fracture, but I find no evidence of Parkinson's, stroke, normal pressure hydrocephalus, myelopathy, radiculopathy, or myopathy. 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 Toxic phenytoin level yesterday morning, did not realize someone had ordered that lab, this morning the phenytoin level is in therapeutic range Sensory loss in the feet, consider neuropathy Plan Await rest of laboratory studies for causes of neuropathy I do not believe she needs another head CT given the nonfocal exam and lack of symptoms of any type of head trauma Rehabilitation, assisted unit Subjective no complaints, denies headache Objective Vital Signs Date Time Temp Pulse Resp B/P (MAP) Pulse Ox O2 Delivery O2 Flow Rate FiO2 06/03/19 11:00 99.0 66 14 120/52 (74) 98 Nasal Cannula 3.0 99.0 Intake and Output 06/03/19 06:59 Intake Total 500 ml Output Total 1925 ml Balance -1425 ml IV Total 500 ml Output Urine Total 1775 ml Estimated Blood Loss 150 ml PHYSICAL EXAM Alert. Oriented to time, place and person. PERRL. EOMI. CN: no focal findings. Muscle tone: normal. Muscle strength: 5/5, splints right leg DTR: 2+ Plantar reflex: flexor Gait: not examined in bed. Sensory exam: Stocking pinprick loss. No cerebellar signs elicited. Review of Relevant I have reviewed the following items andie (where applicable) has been applied. Labs Laboratory Tests Test 06/01/19 13:05 06/01/19 13:10 06/02/19 08:00 06/03/19 04:25 Prothrombin Time 14.3 SEC (11.7-14.0) Prothromb Time International Ratio 1.1 (0.8-1.1) Thyroid Stimulating Hormone (TSH) 0.616 uIU/mL (0.358-3.74) Creatine Kinase 153 U/L (26-192) Triglycerides Level 37 mg/dL (0-150) Cholesterol Level 168 mg/dL (0-200) LDL Cholesterol, Calculated 65 mg/dL (0-100) VLDL Cholesterol, Calculated 7 mg/dL (0-40) Non-HDL Cholesterol Calculated 72 mg/dL (0-129) HDL Cholesterol 96 mg/dL (40-60) Cholesterol/HDL Ratio 1.8 White Blood Count 8.3 x10^3/uL (4.0-11.0) 12.0 x10^3/uL (4.0-11.0) Red Blood Count 3.46 x10^6/uL (3.50-5.40) 3.15 x10^6/uL (3.50-5.40) Hemoglobin 11.3 g/dL (12.0-15.5) 10.3 g/dL (12.0-15.5) Hematocrit 33.5 % (36.0-47.0) 30.3 % (36.0-47.0) Mean Corpuscular Volume 97 fL (79-100) 96 fL (79-100) Mean Corpuscular Hemoglobin 33 pg (25-35) 33 pg (25-35) Mean Corpuscular Hemoglobin Concent 34 g/dL (31-37) 34 g/dL (31-37) Red Cell Distribution Width 13.3 % (11.5-14.5) 13.5 % (11.5-14.5) Platelet Count 180 x10^3/uL (140-400) 170 x10^3/uL (140-400) Sodium Level 127 mmol/L (136-145) 126 mmol/L (136-145) Potassium Level 4.4 mmol/L (3.5-5.1) 4.7 mmol/L (3.5-5.1) Chloride Level 94 mmol/L (98-107) 93 mmol/L (98-107) Carbon Dioxide Level 25 mmol/L (21-32) 23 mmol/L (21-32) Anion Gap 8 (6-14) 10 (6-14) Blood Urea Nitrogen 10 mg/dL (7-20) 11 mg/dL (7-20) Creatinine 0.7 mg/dL (0.6-1.0) 0.6 mg/dL (0.6-1.0) Estimated GFR (Cockcroft-Gault) 80.1 95.7 BUN/Creatinine Ratio 14 (6-20) 18 (6-20) Glucose Level 103 mg/dL (70-99) 85 mg/dL (70-99) Calcium Level 8.3 mg/dL (8.5-10.1) 8.4 mg/dL (8.5-10.1) Total Bilirubin 0.6 mg/dL (0.2-1.0) 0.6 mg/dL (0.2-1.0) Aspartate Amino Transf (AST/SGOT) 21 U/L (15-37) 22 U/L (15-37) Alanine Aminotransferase (ALT/SGPT) 21 U/L (14-59) 29 U/L (14-59) Alkaline Phosphatase 87 U/L (46-116) 77 U/L (46-116) Total Protein 6.0 g/dL (6.4-8.2) 5.7 g/dL (6.4-8.2) Albumin 3.1 g/dL (3.4-5.0) 2.7 g/dL (3.4-5.0) Albumin/Globulin Ratio 1.1 (1.0-1.7) 0.9 (1.0-1.7) Cortisol AM Sample 29.5 ug/dL (4.3-22.4) Phenytoin (Dilantin) Level 22.9 mcg/mL (10.0-20.0) 17.8 mcg/mL (10.0-20.0) Phenytoin Last Dose Date 06/01/19 06/02/19 Phenytoin Last Dose Time 1900 2100 Erythrocyte Sedimentation Rate 15 (0-25) Laboratory Tests Test 06/03/19 04:25 White Blood Count 12.0 x10^3/uL (4.0-11.0) Red Blood Count 3.15 x10^6/uL (3.50-5.40) Hemoglobin 10.3 g/dL (12.0-15.5) Hematocrit 30.3 % (36.0-47.0) Mean Corpuscular Volume 96 fL (79-100) Mean Corpuscular Hemoglobin 33 pg (25-35) Mean Corpuscular Hemoglobin Concent 34 g/dL (31-37) Red Cell Distribution Width 13.5 % (11.5-14.5) Platelet Count 170 x10^3/uL (140-400) Erythrocyte Sedimentation Rate 15 (0-25) Sodium Level 126 mmol/L (136-145) Potassium Level 4.7 mmol/L (3.5-5.1) Chloride Level 93 mmol/L (98-107) Carbon Dioxide Level 23 mmol/L (21-32) Anion Gap 10 (6-14) Blood Urea Nitrogen 11 mg/dL (7-20) Creatinine 0.6 mg/dL (0.6-1.0) Estimated GFR (Cockcroft-Gault) 95.7 BUN/Creatinine Ratio 18 (6-20) Glucose Level 85 mg/dL (70-99) Calcium Level 8.4 mg/dL (8.5-10.1) Total Bilirubin 0.6 mg/dL (0.2-1.0) Aspartate Amino Transf (AST/SGOT) 22 U/L (15-37) Alanine Aminotransferase (ALT/SGPT) 29 U/L (14-59) Alkaline Phosphatase 77 U/L (46-116) Total Protein 5.7 g/dL (6.4-8.2) Albumin 2.7 g/dL (3.4-5.0) Albumin/Globulin Ratio 0.9 (1.0-1.7) Phenytoin (Dilantin) Level 17.8 mcg/mL (10.0-20.0) Phenytoin Last Dose Date 06/02/19 Phenytoin Last Dose Time 2100 Medications Current Medications Metoprolol Tartrate (Lopressor) 25 mg BID PO Last administered on 06/03/19at 09:39; Start 06/01/19 at 13:00 Amlodipine Besylate (Norvasc) 5 mg DAILY PO Last administered on 06/03/19at 09:38; Start 06/02/19 at 09:00 Folic Acid (Folic Acid) 1 mg HS PO Last administered on 06/02/19at 19:44; Start 06/01/19 at 21:00 Lisinopril (Prinivil) 20 mg DAILY PO Last administered on 06/03/19 09:39; Start 06/02/19 at 09:00 Phenytoin Sodium (Dilantin) 100 mg QHS PO Last administered on 06/01/19at 21:02; Start 06/01/19 at 21:00 Ondansetron HCl (Zofran) 4 mg PRN Q4HRS PRN IV NAUSEA/VOMITING Last administered on 06/02/19at 18:00; Start 06/01/19 at 13:15; Stop 06/03/19 at 11: 28; Status DC Fentanyl Citrate (Fentanyl 2ml Vial) 25 mcg PRN Q3HRS PRN IV MODERATE PAIN Last administered on 06/01/19at 15:16; Start 06/01/19 at 13:15 Fentanyl Citrate (Fentanyl 2ml Vial) 50 mcg PRN Q3HRS PRN IV SEVERE PAIN; Start 06/01/19 at 13:15 Ondansetron HCl (Zofran) 4 mg PRN Q6HRS PRN IV NAUSEA/VOMITING; Start 06/02/19 at 08:45; Stop 06/03/19 at 08:44; Status DC Fentanyl Citrate (Fentanyl 2ml Vial) 25 mcg PRN Q5MIN PRN IV MILD PAIN 1-3; Start 06/02/19 at 08:45; Stop 06/03/19 at 08:44; Status DC Fentanyl Citrate (Fentanyl 2ml Vial) 50 mcg PRN Q5MIN PRN IV MODERATE TO SEVERE PAIN; Start 06/02/19 at 08:45; Stop 06/03/19 at 08:44; Status DC Morphine Sulfate (Morphine Sulfate) 1 mg PRN Q10MIN PRN IV SEVERE PAIN 7-10; Start 06/02/19 at 08:45; Stop 06/03/19 at 08:44; Status DC Ringer's Solution 1,000 ml @ 30 mls/hr Q24H IV Last administered on 06/02/19at 20:55; Start 06/02/19 at 08:33; Stop 06/02/19 at 20:32; Status DC Lidocaine HCl (Xylocaine-Mpf 1% 2ml Vial) 2 ml 1X PRN PRN ID IV START; Start 06/02/19 at 08:45; Stop 06/03/19 at 08:44; Status DC Hydromorphone HCl (Dilaudid) 0.5 mg PRN Q10MIN PRN IV SEV PAIN, Second choice; Start 06/02/19 at 08:45; Stop 06/03/19 at 08:44; Status DC Prochlorperazine Edisylate (Compazine) 5 mg PACU PRN PRN IV NAUSEA, MRX1; Start 06/02/19 at 08:45; Stop 06/03/19 at 08:44; Status DC Propofol 20 ml @ As Directed STK-MED ONCE IV ; Start 06/02/19 at 16:02; Stop 06/02/19 at 16:03; Status DC Dexamethasone Sodium Phosphate (Decadron) 4 mg STK-MED ONCE .ROUTE ; Start 06/02/19 at 16:02; Stop 06/02/19 at 16:03; Status DC Famotidine (Pepcid Vial) 20 mg STK-MED ONCE .ROUTE ; Start 06/02/19 at 16:02; Stop 06/02/19 at 16:03; Status DC Lidocaine HCl (Lidocaine Pf 2% Vial) 5 ml STK-MED ONCE .ROUTE ; Start 06/02/19 at 16:02; Stop 06/02/19 at 16:03; Status DC Ondansetron HCl (Zofran) 4 mg STK-MED ONCE .ROUTE ; Start 06/02/19 at 16:02; Stop 06/02/19 at 16:03; Status DC Rocuronium [place] (Zemuron) 50 mg STK-MED ONCE .ROUTE ; Start 06/02/19 at 16:02; Stop 06/02/19 at 16:03; Status DC Fentanyl Citrate (Fentanyl 2ml Vial) 100 mcg STK-MED ONCE .ROUTE ; Start 06/02/19 at 16:02; Stop 06/02/19 at 16:03; Status DC Phenylephrine HCl (PHENYLEPHRINE in 0.9% NACL PF) 1 mg STK-MED ONCE IV ; Start 06/02/19 at 16:53; Stop 06/02/19 at 16:54; Status DC Cefazolin Sodium (Ancef) 1 gm STK-MED ONCE .ROUTE ; Start 06/02/19 at 16:54; Stop 06/02/19 at 16:55; Status DC Neostigmine Methylsulfate (Neostigmine Methylsulfate) 5 mg STK-MED ONCE .ROUTE ; Start 06/02/19 at 17:06; Stop 06/02/19 at 17:07; Status DC Glycopyrrolate (Robinul) 1 mg STK-MED ONCE .ROUTE ; Start 06/02/19 at 17:06; Stop 06/02/19 at 17:07; Status DC Tramadol HCl (Ultram) 50 mg PRN QID PRN PO PAIN MILD; Start 06/02/19 at 18:00 Oxycodone HCl (Roxicodone) 5 mg PRN Q3HRS PRN PO PAIN MODERATE; Start 06/02/19 at 18:00 Morphine Sulfate (Morphine Sulfate) 2 mg PRN Q1HR PRN IV PAIN MILD 1ST CHOICE; Start 06/02/19 at 18:00 Fentanyl Citrate (Fentanyl 2ml Vial) 25 mcg PRN Q1HR PRN IV PAIN MODERATE; Start 06/02/19 at 18:00; Stop 06/03/19 at 11:28; Status DC Senna/Docusate Sodium (Senna Plus) 1 tab DAILY PO Last administered on 06/03/19at 09:39; Start 06/03/19 at 09:00 Polyethylene Glycol (miraLAX PACKET) 17 gm PRN DAILY PRN PO CONSTIPATION 1ST CHOICE; Start 06/02/19 at 18:00 Ondansetron HCl (Zofran) 4 mg PRN Q4HRS PRN IV NAUSEA/VOMITING; Start 06/02/19 at 18:00 Warfarin Sodium (Coumadin Per Pharmacy) 1 each PRN DAILY PRN MC SEE COMMENTS; Start 06/03/19 at 18:00 Magnesium Hydroxide (Milk Of Magnesia) 2,400 mg 1X PRN PRN PO CONSTIPATION SEE DIRECTIONS; Start 06/03/19 at 06:00; Stop 06/04/19 at 05:59 Bisacodyl (Dulcolax Supp) 10 mg 1X PRN PRN AL CONSTIPATION; Start 06/03/19 at 16:00; Stop 06/04/19 at 15:59 Acetaminophen/ Hydrocodone Bitart (Lortab 7.5/325) 1 tab PRN Q4HRS PRN PO PAIN Last administered on 06/03/19at 06:16; Start 06/02/19 at 18:00 Dextrose (Dextrose 50%-Water Syringe) 12.5 gm PRN Q15MIN PRN IV SEE COMMENTS; Start 06/02/19 at 18:00 Cefazolin Sodium 1 gm/Dextrose 50 ml @ 100 mls/hr Q6H IV ; Start 06/02/19 at 18:15; Stop 06/03/19 at 06:44; Status UNV Warfarin Sodium (Coumadin) 5 mg 1X WARF ONCE PO Last administered on 06/02/19at 20:54; Start 06/02/19 at 19:55; Stop 06/02/19 at 19:56; Status DC Cefazolin Sodium (Ancef) 1 gm Q6H IVP Last administered on 06/03/19at 09:44; Start 06/02/19 at 23:00; Stop 06/03/19 at 11:01; Status DC Active Scripts Active Reported Amlodipine Besylate 5 Mg Tablet 5 Mg PO DAILY Lisinopril 20 Mg Tablet 20 Mg PO DAILY Phenytoin Sodium Extended 300 Mg Capsule 300 Mg PO HS Folic Acid 1 Mg Tablet 1 Tab PO HS Vitals/I & O Vital Sign - Last 24 Hours 06/02/19 06/02/19 06/02/19 06/02/19 15:00 17:31 17:31 17:45 Temp 98.0 99.2 99.0 98.0 99.2 99.0 Pulse 85 90 94 Resp 18 20 18 B/P (MAP) 132/68 (89) 154/85 135/66 Pulse Ox 95 95 92 O2 Delivery Room Air Simple Mask Mask Simple Mask O2 Flow Rate 8 8 8 06/02/19 06/02/19 06/02/19 06/02/19 18:00 18:15 18:35 19:00 Temp 98.8 98.8 97.6 98.8 98.8 97.6 Pulse 96 92 76 Resp 20 20 20 B/P (MAP) 128/66 133/73 (93) Pulse Ox 96 93 96 O2 Delivery Room Air Nasal Cannula Nasal Cannula Nasal Cannula O2 Flow Rate 3 3 06/02/19 06/02/19 06/02/19 06/02/19 19:45 20:00 20:15 20:21 Pulse 80 82 85 B/P (MAP) 144/72 (96) 136/64 (88) 136/64 O2 Delivery Nasal Cannula O2 Flow Rate 3.0 06/02/19 06/02/19 06/02/19 06/02/19 21:13 21:45 22:15 23:03 Temp 98.6 98.6 Pulse 81 80 95 95 Resp 18 B/P (MAP) 135/79 (97) 126/60 (82) 127/66 (86) 127/66 (86) Pulse Ox 97 O2 Delivery Nasal Cannula 06/03/19 06/03/19 06/03/19 06/03/19 03:06 06:16 07:00 08:00 Temp 98.9 98.2 98.9 98.2 Pulse 94 110 Resp 20 18 14 B/P (MAP) 125/60 (81) 125/74 (91) Pulse Ox 97 97 98 O2 Delivery Nasal Cannula Nasal Cannula Nasal Cannula Nasal Cannula O2 Flow Rate 3.0 3.0 3.0 06/03/19 06/03/19 06/03/19 06/03/19 09:38 09:39 09:39 11:00 Temp 99.0 99.0 Pulse 110 110 110 66 Resp 14 B/P (MAP) 125/74 125/74 125/74 120/52 (74) Pulse Ox 98 O2 Delivery Nasal Cannula O2 Flow Rate 3.0 Intake and Output 06/02/19 06/02/19 06/03/19 14:59 22:59 06:59 Intake Total 500 ml Output Total 1425 ml 500 ml Balance -925 ml -500 ml Images BRAIN W/O CONTRAST Date: 06/02/2019 8:00 AM Indication: Abnormal head CT, recent falls Comparison: CT head 06/01/2019. Technique: Multiplanar multisequence MRI of the brain was performed without intravenous contrast using the standard protocol. Findings: Extensive patient motion artifact degrades image quality. No acute infarct. No evidence acute hemorrhage. The ventricles are normal in size and configuration without hydrocephalus. Extensive scattered FLAIR hyperintensities in the subcortical and periventricular deep white matter as well as the zandra, a nonspecific finding, most commonly seen with chronic small vessel ischemic disease. Moderate generalized cerebral and cerebellar volume loss. Tiny area of right frontal encephalomalacia. The scalp and calvarium are normal. The pituitary and sella are normal. No Chiari malformation. The visualized upper cervical spine is normal. The visualized orbits and globes are normal. Mild paranasal sinus mucosal thickening. The mastoid air cells are clear. Normal flow voids within the vertebral, basilar, and internal carotid arteries indicating patency. IMPRESSION: Extensive patient motion degrades image quality. Allowing for this, there is no focal abnormality identified corresponding with the hyperattenuating focus seen on the recent CT head. This might represent a trace amount of acute blood products or potentially mineralization below the sensitivity threshold for MRI. Follow-up CT head should be considered to assess stability. No acute infarct. No mass. No hydrocephalus. Extensive chronic small vessel ischemic disease and moderate generalized cerebral volume loss. Tiny area of right frontal encephalomalacia. STONEY COPELAND MD Jun 03, 2019 11:44
[2019-06-03 12:25] LABS: PROTHROMBIN TIME PATIENT 17.9 SEC (11.7-14.0)
--- NOTE | 2019-06-03 13:22 | NUR ---
Pharmacy Warfarin Dosing Note S:Pharmacy consulted to assist with anticoagulation therapy started 06/02/19 with target INR: 1.6 - 2.5 O:MEGAN ELLIOTT is a 83 year old F with a Hip Fracture LABS: Last INR: 1.5 Last HGB: 10.3 Last HCT: 30.3 Last PLT: 170 Last dose of 5 mg given on 06/02/19 at 2054 Vitamin K given: N Drug Interaction Changes: None A:INR of 1.5 is below desired range. Target range for this patient is: 1.6 - 2.5 P: Warfarin dose: 2 mg today at 1600 Bridge Therapy: None Next INR due 06/04/19 Pharmacy anticoagulation service will continue to follow. MOE TOMLIN [facility], 06/03/19 [id number]
[2019-06-03 14:56] VITALS: BP 111/58
[2019-06-03] MEDS ORDERED: BISACODYL 10 MG SUPP.RECT. PR PRN (16:00)
[2019-06-03] MEDS ORDERED: WARFARIN 2 MG TABLET. PO ONE (16:00)
[2019-06-03 19:00] VITALS: BP 119/54
[2019-06-03] MEDS: PHENYTOIN SODIUM EXTENDED 100 MG CAPSULE PO SCH (21:12)
[2019-06-03] MEDS: FOLIC ACID 1 MG TABLET. PO SCH (21:12)
[2019-06-03 22:43] VITALS: BP 124/59
[2019-06-04 03:00] VITALS: BP 123/69
[2019-06-04 05:16] LABS: HEMATOCRIT 27.1 % (36.0-47.0); HEMOGLOBIN 9.4 g/dL (12.0-15.5); RED BLOOD COUNT 2.8 x10^6/uL (3.50-5.40); RED CELL DISTRIBUTION WIDTH 13.5 % (11.5-14.5); WHITE BLOOD COUNT 9.3 x10^3/uL (4.0-11.0)
[2019-06-04 05:36] LABS: PROTHROMBIN TIME PATIENT 20.5 SEC (11.7-14.0)
[2019-06-04 05:49] LABS: CALCIUM 8.1 mg/dL (8.5-10.1); CREATININE 0.5 mg/dL (0.6-1.0); GFR 118.1; POTASSIUM 4.2 mmol/L (3.5-5.1)
[2019-06-04 07:00] VITALS: BP 117/58
--- NOTE | 2019-06-04 07:58 | PN ---
DATE: 06/04/2019 SUBJECTIVE: The patient is resting, slightly propped up in bed, in no apparent respiratory distress. Awake, alert. On questioning her, denied any complaint, stated that she has an uneventful night. Nursing staff did not voice any concern. She apparently worked with physical therapy and transferred from bed to a bedside chair. Her intake 500, output was 1925. Her lab work showed her serum sodium to be trending down to 124. However, BUN and creatinine are stable. Her H and H is dropping slightly dropped to 9.4 and 27 from 11 and 33; however, her white cell count is normal as well as her platelets. PHYSICAL EXAMINATION: GENERAL: When I examined her this morning, she looked pale. No jaundice, cyanosis, or thyromegaly. No jugular venous distension. No limb edema. VITAL SIGNS: Her heart rate was 86, blood pressure was 123/69, temperature was 98.3, respiratory rate 19, and oxygen saturation was 98% on 3 liters of oxygen. The rest of clinical exam is stable, has not really changed. LABORATORY DATA: Her white cell count was 9300, hemoglobin 9.4, hematocrit 27.1, MCV 97 and platelet count of 157,000. Her serum sodium was 124, potassium 4.2, chloride 91, bicarbonate 26, anion gap of 7, BUN 12, creatinine 0.5, estimated GFR was 118 mL per minute. Her glucose 104, calcium was 8.1. Her prothrombin time was 20.5, INR 1.8. ASSESSMENT: 1. Mechanical fall with resultant right intertrochanteric hip fracture, status post open reduction and internal fixation. 2. Atrial fibrillation, rate controlled, not on anticoagulation. 3. Seizure disorder, for which she is on Dilantin. 4. Hypertension. 5. Ataxia that could be due to Dilantin overdose. PLAN: We will discontinue the Gao catheter. Meanwhile, continue with pain management. I checked her TSH and morning cortisol, both are normal. I will consult the gun perforator loader to assist with the management of his hyponatremia. MARY RECINOS MD DR: ANTWAN/zulema JOB#: [id number] / [id number]
--- NOTE | 2019-06-04 08:27 | NUR ---
Pharmacy Warfarin Dosing Note S: Pharmacy consulted to assist with anticoagulation therapy started 06/02/19 O: MEGAN ELLIOTT is a 83 year old F with a Hip Fracture LABS: Last INR: 1.8 Last HGB: 9.4 Last HCT: 27.1 Last PLT: 157 Last dose of 2 mg given on 06/03/19 at 1614 Vitamin K given: N Ongoing Drug Interactions: Phenytoin A:INR of 1.8 is within desired range. Patient has received warfarin 5 mg x 1 dose (06/02) and 2 mg x 1 dose (06/03). Target range for this patient is: 1.6 - 2.5 P: Warfarin dose: 2 mg Today at 1600 Bridge Therapy: None Next INR due 06/05/19 Pharmacy anticoagulation service will continue to follow. MOE TOMLIN [facility], 06/04/19 [id number]
[2019-06-04] MEDS: HYDROcodone/APAP 7.5/325MG 1 TAB TABLET PO PRN (09:03)
[2019-06-04] MEDS: SENNOSIDES/DOCUSATE 8.6/50MG TABLET. PO SCH (09:47)
[2019-06-04 11:00] VITALS: BP 120/68
[2019-06-04] MEDS: amLODIPine BESYLATE 5 MG TABLET PO SCH (11:10)
[2019-06-04] MEDS: METOPROLOL TART IMMED RELEASE 25 MG TABLET. PO SCH ×2 (11:10→22:01)
[2019-06-04] MEDS: LISINOPRIL 20 MG TABLET PO SCH (11:10)
--- NOTE | 2019-06-04 12:20 | PDOC2 ---
CONSULT Date of Consult Date of Consult DATE: 06/04/19 TIME: 12:05 Reason for Consult Reason for Consult: HYPONATREMIA Referring Physician Referring Physician: Dr. Cardozo Identification/Chief Complaint Chief Complaint No complaints, currently"I am going to Rehab tomorrow" Source Source: Chart review, Patient History of Present Illness Reason for Visit: The patient is an 83-year-old female patient, who was brought to the Emergency Room of [facility] with complaining of pain in her right knee after a mechanical trip and fall. No head injury, no loss of consciousness. Has been unable to ambulate secondary to pain since that time. In the ER x-ray of the right knee joint, No evidence of acute fracture. Her right hip x-ray; , showed a fracture of the proximal femur,. Chest x-ray showed no infiltrate, no effusion, EKG showed she was in atrial fibrillation with rate controlled, not anticoagulated. Her lab work showed she has hyponatremia with serum sodium of 126, potassium 5.1. She was transferred to [facility] to consult the orthopedic surgeon. Denies any urinary complaints .Not on Diuretics per Home med list . denies taking any pain meds, No OTC meds . No N/V/D. PAST MEDICAL HISTORY: Seizure disorder on phenytoin, hypertension.Hyponatremia -at the time she was on lisinopril and hydrochlorothiazide -10/03/2014, her serum sodium was only 118. Past Medical History Cardiovascular: HTN Pulmonary: No pertinent hx CENTRAL NERVOUS SYSTEM: Seizure GI: No pertinent hx Heme/Onc: No pertinent hx Hepatobiliary: No pertinent hx Psych: No pertinent hx Musculoskeletal: Osteoarthritis Rheumatologic: No pertinent hx Infectious disease: No pertinent hx ENT: No pertinent hx Renal/: Other (hyponatremia) Endocrine: No pertinent hx Dermatology: No pertinent hx Past Surgical History Past Surgical History: No pertinent history Family History Family History: Coronary Artery Disease (mother) Social History Quit ALCOHOL: none Drugs: None Current Medications Current Medications Current Medications Metoprolol Tartrate (Lopressor) 25 mg BID PO Last administered on 06/04/19at 11:10; Start 06/01/19 at 13:00 Amlodipine Besylate (Norvasc) 5 mg DAILY PO Last administered on 06/04/19at 11:10; Start 06/02/19 at 09:00 Folic Acid (Folic Acid) 1 mg HS PO Last administered on 06/03/19at 21:12; Start 06/01/19 at 21:00 Lisinopril (Prinivil) 20 mg DAILY PO Last administered on 06/04/19at 11:10; Start 06/02/19 at 09:00 Phenytoin Sodium (Dilantin) 100 mg QHS PO Last administered on 06/03/19at 21:12; Start 06/01/19 at 21:00 Ondansetron HCl (Zofran) 4 mg PRN Q4HRS PRN IV NAUSEA/VOMITING Last administered on 06/02/19at 18:00; Start 06/01/19 at 13:15; Stop 06/03/19 at 11:28; Status DC Fentanyl Citrate (Fentanyl 2ml Vial) 25 mcg PRN Q3HRS PRN IV MODERATE PAIN Last administered on 06/01/19at 15:16; Start 06/01/19 at 13:15 Fentanyl Citrate (Fentanyl 2ml Vial) 50 mcg PRN Q3HRS PRN IV SEVERE PAIN; Start 06/01/19 at 13:15 Ondansetron HCl (Zofran) 4 mg PRN Q6HRS PRN IV NAUSEA/VOMITING; Start 06/02/19 at 08:45; Stop 06/03/19 at 08:44; Status DC Fentanyl Citrate (Fentanyl 2ml Vial) 25 mcg PRN Q5MIN PRN IV MILD PAIN 1-3; Start 06/02/19 at 08:45; Stop 06/03/19 at 08:44; Status DC Fentanyl Citrate (Fentanyl 2ml Vial) 50 mcg PRN Q5MIN PRN IV MODERATE TO SEVERE PAIN; Start 06/02/19 at 08:45; Stop 06/03/19 at 08:44; Status DC Morphine Sulfate (Morphine Sulfate) 1 mg PRN Q10MIN PRN IV SEVERE PAIN 7-10; Start 06/02/19 at 08:45; Stop 06/03/19 at 08:44; Status DC Ringer's Solution 1,000 ml @ 30 mls/hr Q24H IV Last administered on 06/02/19at 20:55; Start 06/02/19 at 08:33; Stop 06/02/19 at 20:32; Status DC Lidocaine HCl (Xylocaine-Mpf 1% 2ml Vial) 2 ml 1X PRN PRN ID IV START; Start 7/26/19 at 08:45; Stop 06/03/19 at 08:44; Status DC Hydromorphone HCl (Dilaudid) 0.5 mg PRN Q10MIN PRN IV SEV PAIN, Second choice; Start 06/02/19 at 08:45; Stop 06/03/19 at 08:44; Status DC Prochlorperazine Edisylate (Compazine) 5 mg PACU PRN PRN IV NAUSEA, MRX1; Start 06/02/19 at 08:45; Stop 06/03/19 at 08:44; Status DC Propofol 20 ml @ As Directed STK-MED ONCE IV ; Start 06/02/19 at 16:02; Stop 06/02/19 at 16:03; Status DC Dexamethasone Sodium Phosphate (Decadron) 4 mg STK-MED ONCE .ROUTE ; Start 06/02/19 at 16:02; Stop 06/02/19 at 16:03; Status DC Famotidine (Pepcid Vial) 20 mg STK-MED ONCE .ROUTE ; Start 06/02/19 at 16:02; Stop 06/02/19 at 16:03; Status DC Lidocaine HCl (Lidocaine Pf 2% Vial) 5 ml STK-MED ONCE .ROUTE ; Start 06/02/19 at 16:02; Stop 06/02/19 at 16:03; Status DC Ondansetron HCl (Zofran) 4 mg STK-MED ONCE .ROUTE ; Start 06/02/19 at 16:02; Stop 06/02/19 at 16:03; Status DC Rocuronium [place] (Zemuron) 50 mg STK-MED ONCE .ROUTE ; Start 06/02/19 at 16:02; Stop 06/02/19 at 16:03; Status DC Fentanyl Citrate (Fentanyl 2ml Vial) 100 mcg STK-MED ONCE .ROUTE ; Start 06/02/19 at 16:02; Stop 06/02/19 at 16:03; Status DC Phenylephrine HCl (PHENYLEPHRINE in 0.9% NACL PF) 1 mg STK-MED ONCE IV ; Start 06/02/19 at 16:53; Stop 06/02/19 at 16:54; Status DC Cefazolin Sodium (Ancef) 1 gm STK-MED ONCE .ROUTE ; Start 06/02/19 at 16:54; Stop 06/02/19 at 16:55; Status DC Neostigmine Methylsulfate (Neostigmine Methylsulfate) 5 mg STK-MED ONCE .ROUTE ; Start 06/02/19 at 17:06; Stop 06/02/19 at 17:07; Status DC Glycopyrrolate (Robinul) 1 mg STK-MED ONCE .ROUTE ; Start 06/02/19 at 17:06; Stop 06/02/19 at 17:07; Status DC Tramadol HCl (Ultram) 50 mg PRN QID PRN PO PAIN MILD; Start 06/02/19 at 18:00 Oxycodone HCl (Roxicodone) 5 mg PRN Q3HRS PRN PO PAIN MODERATE; Start 06/02/19 at 18:00 Morphine Sulfate (Morphine Sulfate) 2 mg PRN Q1HR PRN IV PAIN MILD 1ST CHOICE; Start 06/02/19 at 18:00 Fentanyl Citrate (Fentanyl 2ml Vial) 25 mcg PRN Q1HR PRN IV PAIN MODERATE; Start 06/02/19 at 18:00; Stop 06/03/19 at 11:28; Status DC Senna/Docusate Sodium (Senna Plus) 1 tab DAILY PO Last administered on 06/04/19at 09:47; Start 06/03/19 at 09:00 Polyethylene Glycol (miraLAX PACKET) 17 gm PRN DAILY PRN PO CONSTIPATION 1ST CHOICE; Start 06/02/19 at 18:00 Ondansetron HCl (Zofran) 4 mg PRN Q4HRS PRN IV NAUSEA/VOMITING; Start 06/02/19 at 18:00 Warfarin Sodium (Coumadin Per Pharmacy) 1 each PRN DAILY PRN MC SEE COMMENTS Last administered on 06/04/19at 08:27; Start 06/03/19 at 18:00 Magnesium Hydroxide (Milk Of Magnesia) 2,400 mg 1X PRN PRN PO CONSTIPATION SEE DIRECTIONS; Start 06/03/19 at 06:00; Stop 06/04/19 at 05:59; Status DC Bisacodyl (Dulcolax Supp) 10 mg 1X PRN PRN [place] CONSTIPATION; Start 06/03/19 at 16:00; Stop 06/04/19 at 15:59 Acetaminophen/ Hydrocodone Bitart (Lortab 7.5/325) 1 tab PRN Q4HRS PRN PO PAIN Last administered on 06/04/19at 09:03; Start 06/02/19 at 18:00 Dextrose (Dextrose 50%-Water Syringe) 12.5 gm PRN Q15MIN PRN IV SEE COMMENTS; Start 06/02/19 at 18:00 Cefazolin Sodium 1 gm/Dextrose 50 ml @ 100 mls/hr Q6H IV ; Start 06/02/19 at 18:15; Stop 06/03/19 at 06:44; Status UNV Warfarin Sodium (Coumadin) 5 mg 1X WARF ONCE PO Last administered on 06/02/19at 20:54; Start 06/02/19 at 19:55; Stop 06/02/19 at 19:56; Status DC Cefazolin Sodium (Ancef) 1 gm Q6H IVP Last administered on 06/03/19at 09:44; Start 06/02/19 at 23:00; Stop 06/03/19 at 11:01; Status DC Warfarin Sodium (Coumadin) 2 mg 1X WARF ONCE PO Last administered on 06/03/19at 16:14; Start 06/03/19 at 16:00; Stop 06/03/19 at 16:01; Status DC Warfarin Sodium (Coumadin) 2 mg 1X WARF ONCE PO ; Start 06/04/19 at 16:00; Stop 06/04/19 at 16:01 Active Scripts Active Reported Amlodipine Besylate 5 Mg Tablet 5 Mg PO DAILY Lisinopril 20 Mg Tablet 20 Mg PO DAILY Phenytoin Sodium Extended 300 Mg Capsule 300 Mg PO HS Folic Acid 1 Mg Tablet 1 Tab PO HS Allergies Allergies: Coded Allergies: No Known Drug Allergies (Unverified , 06/01/19) ROS Review of System Per HPI Physical Exam Physical Exam GENERAL:NAD , Eating Lunch HEENT: OM moist NECK: Supple. HEART: RRR CHEST: Clear to auscultation. ABDOMEN: Distended, soft, nontender. NEUROLOGIC: She is awake, alert, responding appropriately. EXTREMITIES: No LE edema No Gao Vital Signs Vital Signs Date Time Temp Pulse Resp B/P (MAP) Pulse Ox O2 Delivery O2 Flow Rate FiO2 06/04/19 11:10 85 120/68 06/04/19 11:00 97.6 16 97 Nasal Cannula 2.0 97.6 Assessment & Plan Hyponatremia- Common Post Fracture in elderly, mostly pre-renal Not on Diuretics per Home list ,Not Hypotensive , Good uop, normal Creat , Good PO intake Less Likely SIADH, will start slow IV NS na dmonitor, Check UA, U-Lytes and Ur Osm HTN- On lisinopril and Amlodipine per Home med list Mechanical fall with resultant right intertrochanteric hip fracture, status post open reduction and internal fixation. Atrial fibrillation, rate controlled, not on anticoagulation. Hx of Seizures- On Dilantin DW Pt and RN Labs Labs Laboratory Tests Test 06/03/19 04:25 06/03/19 11:50 06/04/19 04:08 White Blood Count 12.0 x10^3/uL (4.0-11.0) 9.3 x10^3/uL (4.0-11.0) Red Blood Count 3.15 x10^6/uL (3.50-5.40) 2.80 x10^6/uL (3.50-5.40) Hemoglobin 10.3 g/dL (12.0-15.5) 9.4 g/dL (12.0-15.5) Hematocrit 30.3 % (36.0-47.0) 27.1 % (36.0-47.0) Mean Corpuscular Volume 96 fL (79-100) 97 fL (79-100) Mean Corpuscular Hemoglobin 33 pg (25-35) 33 pg (25-35) Mean Corpuscular Hemoglobin Concent 34 g/dL (31-37) 35 g/dL (31-37) Red Cell Distribution Width 13.5 % (11.5-14.5) 13.5 % (11.5-14.5) Platelet Count 170 x10^3/uL (140-400) 157 x10^3/uL (140-400) Erythrocyte Sedimentation Rate 15 (0-25) Sodium Level 126 mmol/L (136-145) 124 mmol/L (136-145) Potassium Level 4.7 mmol/L (3.5-5.1) 4.2 mmol/L (3.5-5.1) Chloride Level 93 mmol/L (98-107) 91 mmol/L (98-107) Carbon Dioxide Level 23 mmol/L (21-32) 26 mmol/L (21-32) Anion Gap 10 (6-14) 7 (6-14) Blood Urea Nitrogen 11 mg/dL (7-20) 12 mg/dL (7-20) Creatinine 0.6 mg/dL (0.6-1.0) 0.5 mg/dL (0.6-1.0) Estimated GFR (Cockcroft-Gault) 95.7 118.1 BUN/Creatinine Ratio 18 (6-20) Glucose Level 85 mg/dL (70-99) 104 mg/dL (70-99) Calcium Level 8.4 mg/dL (8.5-10.1) 8.1 mg/dL (8.5-10.1) Total Bilirubin 0.6 mg/dL (0.2-1.0) Aspartate Amino Transf (AST/SGOT) 22 U/L (15-37) Alanine Aminotransferase (ALT/SGPT) 29 U/L (14-59) Alkaline Phosphatase 77 U/L (46-116) Total Protein 5.7 g/dL (6.4-8.2) Albumin 2.7 g/dL (3.4-5.0) Albumin/Globulin Ratio 0.9 (1.0-1.7) Phenytoin (Dilantin) Level 17.8 mcg/mL (10.0-20.0) Phenytoin Last Dose Date 06/02/19 Phenytoin Last Dose Time 2100 Prothrombin Time 17.9 SEC (11.7-14.0) 20.5 SEC (11.7-14.0) Prothromb Time International Ratio 1.5 (0.8-1.1) 1.8 (0.8-1.1) Laboratory Tests Test 06/04/19 04:08 White Blood Count 9.3 x10^3/uL (4.0-11.0) Red Blood Count 2.80 x10^6/uL (3.50-5.40) Hemoglobin 9.4 g/dL (12.0-15.5) Hematocrit 27.1 % (36.0-47.0) Mean Corpuscular Volume 97 fL (79-100) Mean Corpuscular Hemoglobin 33 pg (25-35) Mean Corpuscular Hemoglobin Concent 35 g/dL (31-37) Red Cell Distribution Width 13.5 % (11.5-14.5) Platelet Count 157 x10^3/uL (140-400) Prothrombin Time 20.5 SEC (11.7-14.0) Prothromb Time International Ratio 1.8 (0.8-1.1) Sodium Level 124 mmol/L (136-145) Potassium Level 4.2 mmol/L (3.5-5.1) Chloride Level 91 mmol/L (98-107) Carbon Dioxide Level 26 mmol/L (21-32) Anion Gap 7 (6-14) Blood Urea Nitrogen 12 mg/dL (7-20) Creatinine 0.5 mg/dL (0.6-1.0) Estimated GFR (Cockcroft-Gault) 118.1 Glucose Level 104 mg/dL (70-99) Calcium Level 8.1 mg/dL (8.5-10.1) Review All relevant outside records, renal labs, imaging studies, telemetry/EKG's were reviewed. HARLEY NEWBY MD Jun 04, 2019 12:20
--- NOTE | 2019-06-04 13:10 | PDOC ---
PROGRESS NOTES Assessment Mechanical falls, by description she has some multifactorial gait disorder which of course I cannot evaluate given the acute hip fracture, but I find no evidence of Parkinson's, stroke, normal pressure hydrocephalus, myelopathy, radiculopathy, or myopathy. 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 Toxic phenytoin level 06/02 morning, 06/03, the phenytoin level is in therapeutic range Sensory loss in the feet, suspect neuropathy Plan Await rest of laboratory studies for causes of neuropathy I do not believe she needs another head CT given the nonfocal exam and lack of symptoms of any type of head trauma Rehabilitation, [facility] Subjective no complaints Objective Vital Signs Date Time Temp Pulse Resp B/P (MAP) Pulse Ox O2 Delivery O2 Flow Rate FiO2 06/04/19 11:10 85 120/68 06/04/19 11:00 97.6 16 97 Nasal Cannula 2.0 97.6 Intake and Output 06/04/19 06:59 Intake Total 500 ml Output Total 1225 ml Balance -725 ml Intake Oral 500 ml Output Urine Total 1225 ml PHYSICAL EXAM Alert. Oriented to time, place and person. PERRL. EOMI. CN: no focal findings. Muscle tone: normal. Muscle strength: 5/5, splints right leg DTR: 2+ Plantar reflex: flexor Gait: not examined. Sensory exam: Stocking pinprick loss. No cerebellar signs elicited. Review of Relevant I have reviewed the following items andie (where applicable) has been applied. Labs Laboratory Tests Test 06/03/19 04:25 06/03/19 11:50 06/04/19 04:08 White Blood Count 12.0 x10^3/uL (4.0-11.0) 9.3 x10^3/uL (4.0-11.0) Red Blood Count 3.15 x10^6/uL (3.50-5.40) 2.80 x10^6/uL (3.50-5.40) Hemoglobin 10.3 g/dL (12.0-15.5) 9.4 g/dL (12.0-15.5) Hematocrit 30.3 % (36.0-47.0) 27.1 % (36.0-47.0) Mean Corpuscular Volume 96 fL (79-100) 97 fL (79-100) Mean Corpuscular Hemoglobin 33 pg (25-35) 33 pg (25-35) Mean Corpuscular Hemoglobin Concent 34 g/dL (31-37) 35 g/dL (31-37) Red Cell Distribution Width 13.5 % (11.5-14.5) 13.5 % (11.5-14.5) Platelet Count 170 x10^3/uL (140-400) 157 x10^3/uL (140-400) Erythrocyte Sedimentation Rate 15 (0-25) Sodium Level 126 mmol/L (136-145) 124 mmol/L (136-145) Potassium Level 4.7 mmol/L (3.5-5.1) 4.2 mmol/L (3.5-5.1) Chloride Level 93 mmol/L (98-107) 91 mmol/L (98-107) Carbon Dioxide Level 23 mmol/L (21-32) 26 mmol/L (21-32) Anion Gap 10 (6-14) 7 (6-14) Blood Urea Nitrogen 11 mg/dL (7-20) 12 mg/dL (7-20) Creatinine 0.6 mg/dL (0.6-1.0) 0.5 mg/dL (0.6-1.0) Estimated GFR (Cockcroft-Gault) 95.7 118.1 BUN/Creatinine Ratio 18 (6-20) Glucose Level 85 mg/dL (70-99) 104 mg/dL (70-99) Calcium Level 8.4 mg/dL (8.5-10.1) 8.1 mg/dL (8.5-10.1) Total Bilirubin 0.6 mg/dL (0.2-1.0) Aspartate Amino Transf (AST/SGOT) 22 U/L (15-37) Alanine Aminotransferase (ALT/SGPT) 29 U/L (14-59) Alkaline Phosphatase 77 U/L (46-116) Total Protein 5.7 g/dL (6.4-8.2) Albumin 2.7 g/dL (3.4-5.0) Albumin/Globulin Ratio 0.9 (1.0-1.7) Phenytoin (Dilantin) Level 17.8 mcg/mL (10.0-20.0) Phenytoin Last Dose Date 06/02/19 Phenytoin Last Dose Time 2100 Prothrombin Time 17.9 SEC (11.7-14.0) 20.5 SEC (11.7-14.0) Prothromb Time International Ratio 1.5 (0.8-1.1) 1.8 (0.8-1.1) Laboratory Tests Test 06/04/19 04:08 White Blood Count 9.3 x10^3/uL (4.0-11.0) Red Blood Count 2.80 x10^6/uL (3.50-5.40) Hemoglobin 9.4 g/dL (12.0-15.5) Hematocrit 27.1 % (36.0-47.0) Mean Corpuscular Volume 97 fL (79-100) Mean Corpuscular Hemoglobin 33 pg (25-35) Mean Corpuscular Hemoglobin Concent 35 g/dL (31-37) Red Cell Distribution Width 13.5 % (11.5-14.5) Platelet Count 157 x10^3/uL (140-400) Prothrombin Time 20.5 SEC (11.7-14.0) Prothromb Time International Ratio 1.8 (0.8-1.1) Sodium Level 124 mmol/L (136-145) Potassium Level 4.2 mmol/L (3.5-5.1) Chloride Level 91 mmol/L (98-107) Carbon Dioxide Level 26 mmol/L (21-32) Anion Gap 7 (6-14) Blood Urea Nitrogen 12 mg/dL (7-20) Creatinine 0.5 mg/dL (0.6-1.0) Estimated GFR (Cockcroft-Gault) 118.1 Glucose Level 104 mg/dL (70-99) Calcium Level 8.1 mg/dL (8.5-10.1) Medications Current Medications Metoprolol Tartrate (Lopressor) 25 mg BID PO Last administered on 06/04/19at 11:10; Start 06/01/19 at 13:00 Amlodipine Besylate (Norvasc) 5 mg DAILY PO Last administered on 06/04/19at 11:10; Start 06/02/19 at 09:00 Folic Acid (Folic Acid) 1 mg HS PO Last administered on 06/03/19at 21:12; Start 06/01/19 at 21:00 Lisinopril (Prinivil) 20 mg DAILY PO Last administered on 06/04/19at 11:10; Start 06/02/19 at 09:00 Phenytoin Sodium (Dilantin) 100 mg QHS PO Last administered on 06/03/19at 21:12; Start 06/01/19 at 21:00 Ondansetron HCl (Zofran) 4 mg PRN Q4HRS PRN IV NAUSEA/VOMITING Last administered on 06/02/19at 18:00; Start 06/01/19 at 13:15; Stop 06/03/19 at 11:28; Status DC Fentanyl Citrate (Fentanyl 2ml Vial) 25 mcg PRN Q3HRS PRN IV MODERATE PAIN Last administered on 06/01/19at 15:16; Start 06/01/19 at 13:15 Fentanyl Citrate (Fentanyl 2ml Vial) 50 mcg PRN Q3HRS PRN IV SEVERE PAIN; Start 06/01/19 at 13:15 Ondansetron HCl (Zofran) 4 mg PRN Q6HRS PRN IV NAUSEA/VOMITING; Start 06/02/19 at 08:45; Stop 06/03/19 at 08:44; Status DC Fentanyl Citrate (Fentanyl 2ml Vial) 25 mcg PRN Q5MIN PRN IV MILD PAIN 1-3; Start 06/02/19 at 08:45; Stop 06/03/19 at 08:44; Status DC Fentanyl Citrate (Fentanyl 2ml Vial) 50 mcg PRN Q5MIN PRN IV MODERATE TO SEVERE PAIN; Start 06/02/19 at 08:45; Stop 06/03/19 at 08:44; Status DC Morphine Sulfate (Morphine Sulfate) 1 mg PRN Q10MIN PRN IV SEVERE PAIN 7-10; Start 06/02/19 at 08:45; Stop 06/03/19 at 08:44; Status DC Ringer's Solution 1,000 ml @ 30 mls/hr Q24H IV Last administered on 06/02/19at 20:55; Start 06/02/19 at 08:33; Stop 06/02/19 at 20:32; Status DC Lidocaine HCl (Xylocaine-Mpf 1% 2ml Vial) 2 ml 1X PRN PRN ID IV START; Start 06/02/19 at 08:45; Stop 06/03/19 at 08:44; Status DC Hydromorphone HCl (Dilaudid) 0.5 mg PRN Q10MIN PRN IV SEV PAIN, Second choice; Start 06/02/19 at 08:45; Stop 06/03/19 at 08:44; Status DC Prochlorperazine Edisylate (Compazine) 5 mg PACU PRN PRN IV NAUSEA, MRX1; Start 06/02/19 at 08:45; Stop 06/03/19 at 08:44; Status DC Propofol 20 ml @ As Directed STK-MED ONCE IV ; Start 06/02/19 at 16:02; Stop 06/02/19 at 16:03; Status DC Dexamethasone Sodium Phosphate (Decadron) 4 mg STK-MED ONCE .ROUTE ; Start 06/02/19 at 16:02; Stop 06/02/19 at 16:03; Status DC Famotidine (Pepcid Vial) 20 mg STK-MED ONCE .ROUTE ; Start 06/02/19 at 16:02; Stop 06/02/19 at 16:03; Status DC Lidocaine HCl (Lidocaine Pf 2% Vial) 5 ml STK-MED ONCE .ROUTE ; Start 06/02/19 at 16:02; Stop 06/02/19 at 16:03; Status DC Ondansetron HCl (Zofran) 4 mg STK-MED ONCE .ROUTE ; Start 06/02/19 at 16:02; Stop 06/02/19 at 16:03; Status DC Rocuronium [place] (Zemuron) 50 mg STK-MED ONCE .ROUTE ; Start 06/02/19 at 16:02; Stop 06/02/19 at 16:03; Status DC Fentanyl Citrate (Fentanyl 2ml Vial) 100 mcg STK-MED ONCE .ROUTE ; Start 06/02/19 at 16:02; Stop 06/02/19 at 16:03; Status DC Phenylephrine HCl (PHENYLEPHRINE in 0.9% NACL PF) 1 mg STK-MED ONCE IV ; Start 06/02/19 at 16:53; Stop 06/02/19 at 16:54; Status DC Cefazolin Sodium (Ancef) 1 gm STK-MED ONCE .ROUTE ; Start 06/02/19 at 16:54; Stop 06/02/19 at 16:55; Status DC Neostigmine Methylsulfate (Neostigmine Methylsulfate) 5 mg STK-MED ONCE .ROUTE ; Start 06/02/19 at 17:06; Stop 06/02/19 at 17:07; Status DC Glycopyrrolate (Robinul) 1 mg STK-MED ONCE .ROUTE ; Start 06/02/19 at 17:06; Stop 06/02/19 at 17:07; Status DC Tramadol HCl (Ultram) 50 mg PRN QID PRN PO PAIN MILD; Start 06/02/19 at 18:00 Oxycodone HCl (Roxicodone) 5 mg PRN Q3HRS PRN PO PAIN MODERATE; Start 06/02/19 at 18:00 Morphine Sulfate (Morphine Sulfate) 2 mg PRN Q1HR PRN IV PAIN MILD 1ST CHOICE; Start 06/02/19 at 18:00 Fentanyl Citrate (Fentanyl 2ml Vial) 25 mcg PRN Q1HR PRN IV PAIN MODERATE; Start 06/02/19 at 18:00; Stop 06/03/19 at 11:28; Status DC Senna/Docusate Sodium (Senna Plus) 1 tab DAILY PO Last administered on 06/04/19at 09:47; Start 06/03/19 at 09:00 Polyethylene Glycol (miraLAX PACKET) 17 gm PRN DAILY PRN PO CONSTIPATION 1ST CHOICE; Start 06/02/19 at 18:00 Ondansetron HCl (Zofran) 4 mg PRN Q4HRS PRN IV NAUSEA/VOMITING; Start 06/02/19 at 18:00 Warfarin Sodium (Coumadin Per Pharmacy) 1 each PRN DAILY PRN MC SEE COMMENTS Last administered on 06/04/19at 08:27; Start 06/03/19 at 18:00 Magnesium Hydroxide (Milk Of Magnesia) 2,400 mg 1X PRN PRN PO CONSTIPATION SEE DIRECTIONS; Start 06/03/19 at 06:00; Stop 06/04/19 at 05:59; Status DC Bisacodyl (Dulcolax Supp) 10 mg 1X PRN PRN [place] CONSTIPATION; Start 06/03/19 at 16:00; Stop 06/04/19 at 15:59 Acetaminophen/ Hydrocodone Bitart (Lortab 7.5/325) 1 tab PRN Q4HRS PRN PO PAIN Last administered on 06/04/19at 09:03; Start 06/02/19 at 18:00 Dextrose (Dextrose 50%-Water Syringe) 12.5 gm PRN Q15MIN PRN IV SEE COMMENTS; Start 06/02/19 at 18:00 Cefazolin Sodium 1 gm/Dextrose 50 ml @ 100 mls/hr Q6H IV ; Start 06/02/19 at 18:15; Stop 06/03/19 at 06:44; Status UNV Warfarin Sodium (Coumadin) 5 mg 1X WARF ONCE PO Last administered on 06/02/19at 20:54; Start 06/02/19 at 19:55; Stop 06/02/19 at 19:56; Status DC Cefazolin Sodium (Ancef) 1 gm Q6H IVP Last administered on 06/03/19at 09:44; Start 06/02/19 at 23:00; Stop 06/03/19 at 11:01; Status DC Warfarin Sodium (Coumadin) 2 mg 1X WARF ONCE PO Last administered on 06/03/19at 16:14; Start 06/03/19 at 16:00; Stop 06/03/19 at 16:01; Status DC Warfarin Sodium (Coumadin) 2 mg 1X WARF ONCE PO ; Start 06/04/19 at 16:00; Stop 06/04/19 at 16:01 Sodium Chloride 1,000 ml @ 75 mls/hr [id number] IV ; Start 06/04/19 at 13:00 Active Scripts Active Reported Amlodipine Besylate 5 Mg Tablet 5 Mg PO DAILY Lisinopril 20 Mg Tablet 20 Mg PO DAILY Phenytoin Sodium Extended 300 Mg Capsule 300 Mg PO HS Folic Acid 1 Mg Tablet 1 Tab PO HS Vitals/I & O Vital Sign - Last 24 Hours 06/03/19 06/03/19 06/03/19 06/03/19 14:56 19:00 20:00 21:12 Temp 97.4 98.0 97.4 98.0 Pulse 102 76 76 Resp 16 16 B/P (MAP) 111/58 (75) 119/54 (75) 119/54 Pulse Ox 89 98 O2 Delivery Nasal Cannula Nasal Cannula Nasal Cannula O2 Flow Rate 3.0 3.0 3.0 06/03/19 06/03/19 06/04/19 06/04/19 21:35 22:43 03:00 07:00 Temp 97.9 98.3 97.9 97.9 98.3 97.9 Pulse 83 86 81 Resp 18 16 19 16 B/P (MAP) 124/59 (80) 123/69 (87) 117/58 (77) Pulse Ox 99 98 99 O2 Delivery Nasal Cannula Nasal Cannula Nasal Cannula Nasal Cannula O2 Flow Rate 2.0 3.0 3.0 2.0 06/04/19 06/04/19 06/04/19 06/04/19 08:00 09:03 10:00 11:00 Temp 97.6 97.6 Pulse 85 Resp 16 B/P (MAP) 120/68 (85) Pulse Ox 99 97 97 O2 Delivery Nasal Cannula Nasal Cannula Nasal Cannula Nasal Cannula O2 Flow Rate 3.0 3.0 2.0 2.0 06/04/19 06/04/19 06/04/19 11:10 11:10 11:10 Pulse 85 85 85 B/P (MAP) 120/68 120/68 120/68 Intake and Output 06/03/19 06/03/19 06/04/19 14:59 22:59 06:59 Intake Total 500 ml Output Total 300 ml 200 ml 725 ml Balance 200 ml -200 ml -725 ml STONEY COPELAND MD Jun 04, 2019 13:10
[2019-06-04] MEDS: IV NORMAL SALINE 1000ML BAG 1,000 ML IV SCH (14:28)
[2019-06-04 15:00] VITALS: BP 89/51
[2019-06-04] MEDS ORDERED: WARFARIN 2 MG TABLET. PO ONE (16:00)
[2019-06-04 16:43] LABS: BILIRUBIN,URINE NEGATIVE (NEG); CLARITY,URINE CLEAR; COLOR,URINE YELLOW; NITRITE,URINE NEGATIVE (NEG); PROTEIN,URINE NEGATIVE (NEG-TRACE)
[2019-06-04 16:52] LABS: RBC,URINE RARE /HPF (0-2)
[2019-06-04 16:53] LABS: BACTERIA,URINE FEW /HPF (0-FEW); SQUAMOUS EPITHELIAL CELL,UR MANY /LPF
[2019-06-04 19:30] VITALS: BP 101/53
[2019-06-04] MEDS: FOLIC ACID 1 MG TABLET. PO SCH (22:01)
[2019-06-04] MEDS: PHENYTOIN SODIUM EXTENDED 100 MG CAPSULE PO SCH (22:01)
[2019-06-04 22:55] VITALS: BP 117/65
[2019-06-05] MEDS: IV NORMAL SALINE 1000ML BAG 1,000 ML IV SCH (03:24)
[2019-06-05 03:30] VITALS: BP 120/68
[2019-06-05 07:30] VITALS: BP 100/53
[2019-06-05 07:36] LABS: HEMATOCRIT 27.1 % (36.0-47.0); HEMOGLOBIN 9.3 g/dL (12.0-15.5)
[2019-06-05 07:39] LABS: PROTHROMBIN TIME PATIENT 20.1 SEC (11.7-14.0)
[2019-06-05 07:56] LABS: CALCIUM 8.1 mg/dL (8.5-10.1); CREATININE 0.5 mg/dL (0.6-1.0); GFR 118.1; POTASSIUM 3.9 mmol/L (3.5-5.1)
[2019-06-05] MEDS ORDERED: PHEN100C PO (08:20)
[2019-06-05] MEDS ORDERED: POLY17PO29 PO (08:20)
[2019-06-05] MEDS ORDERED: SENN-142 PO (08:20)
[2019-06-05] MEDS ORDERED: HYDR-2761 PO (08:20)
[2019-06-05] MEDS ORDERED: ONDA4TAB12 PO (08:20)
--- NOTE | 2019-06-05 08:23 | SNU/HH DC ---
DISCHARGE ORDERS DISCHARGE INFORMATION: DISCHARGE DATE: Jun 05, 2019 FINAL DIAGNOSIS right intertrochanteric hip fracture s/p ORIF Seizure disorder hypertension chronic hyponatremia CONDITION ON DISCHARGE: Stable CODE STATUS: Code Status: Full DETENTION: SNF STAY <30 DAYS: Yes POST DISCHARGE ORDERS: ACTIVITY ORDERS: Activity as tolerated DIET AFTER DISCHARGE: Cardiac TREATMENT/EQUIPMENT ORDERS: Physical Therapy For: Evalulation/Treatment Occupational Therapy For: Evaluation/Treatment DISCHARGE MEDICATIONS: Home Meds Active Scripts Ondansetron (ONDANSETRON ODT) 4 Mg Tab.rapdis, 1 TAB PO PRN Q6-8HRS for nausea for 30 Days, #16 TAB Prov:MARY RECINOS MD 06/05/19 Polyethylene Glycol 3350 (MIRALAX) 17 Gm Powd.pack, 1 PACKET PO DAILY for constipationj, #30 PACKET 3 Refills Prov:MARY RECINOS MD 06/05/19 Hydrocodone Bit/Acetaminophen (HYDROCODONE-APAP 5-325 ) 1 Tab Tablet, 1 TAB PO Q4H PRN for PAIN for 30 Days, #180 TAB 0 Refills Prov:MARY RECINOS MD 06/05/19 Sennosides/Docusate Sodium (Senna-S Laxative Tablet) 1 Each Tablet, 1 EACH PO BID for constipation for 30 Days, #60 TAB Prov:MARY RECINOS MD 06/05/19 Phenytoin Sodium Extended (DILANTIN) 100 Mg Capsule, 1 CAP PO QHS for seizures for 30 Days, #30 CAP 3 Refills Prov:MARY RECINOS MD 06/05/19 Reported Medications Amlodipine Besylate (AMLODIPINE BESYLATE) 5 Mg Tablet, 5 MG PO DAILY for , TAB 06/01/19 Lisinopril (LISINOPRIL) 20 Mg Tablet, 20 MG PO DAILY for FOR HYPERTENSION, #30 TAB 0 Refills 06/01/19 Folic Acid (FOLIC ACID) 1 Mg Tablet, 1 TAB PO HS for , #90 TAB 1 Refill 06/01/19 Discontinued Reported Medications Phenytoin Sodium Extended (PHENYTOIN SODIUM EXTENDED) 300 Mg Capsule, 300 MG PO HS for , CAP 06/01/19 MARY RECINOS MD Jun 05, 2019 08:23
[2019-06-05] MEDS: METOPROLOL TART IMMED RELEASE 25 MG TABLET. PO SCH (08:39)
[2019-06-05] MEDS: LISINOPRIL 20 MG TABLET PO SCH (08:40)
[2019-06-05] MEDS: SENNOSIDES/DOCUSATE 8.6/50MG TABLET. PO SCH (08:40)
[2019-06-05] MEDS: amLODIPine BESYLATE 5 MG TABLET PO SCH (09:00)
--- NOTE | 2019-06-05 10:11 | NUR ---
SS following up with discharge planning. PT/OT [facility]. SS met with pt and pt's daughter in room to discuss discharge planning. Pt's daughter requested [facility] in [place]. Pt is [employer] primary. [facility] is not in network with [employer]. SS discussed [facility] in network with [employer] with pt and pt's daughter. Pt and pt's daughter requested that referral be phoned and faxed to [facility], ; fax [phone]. SS phoned and faxed referral. SS will await acceptance decision and insurance determination and will proceed accordingly with discharge planning.
--- NOTE | 2019-06-05 10:17 | PDOC ---
SUBJECTIVE ROS No complaints OBJECTIVE Vital Signs Vital Signs Date Time Temp Pulse Resp B/P (MAP) Pulse Ox O2 Delivery O2 Flow Rate FiO2 06/05/19 08:40 87 100/53 06/05/19 08:00 Nasal Cannula 06/05/19 07:30 97.8 16 99 2.0 97.8 I & 0 Intake and Output 06/05/19 07:00 Intake Total 100 ml Output Total 1175 ml Balance -1075 ml Intake Oral 100 ml Output Urine Total 1175 ml PHYSICAL EXAM Physical Exam GENERAL:NAD , HEENT: OM moist NECK: Supple. HEART: RRR CHEST: Clear to auscultation. ABDOMEN: Distended, soft, nontender. NEUROLOGIC: She is awake, alert, responding appropriately. EXTREMITIES: No LE edema No Gao DIAGNOSIS/ASSESSMENT Assessment & Plan Hyponatremia- Improved with IVF, Mildly low this am UA- few wbc's, Leuc esterase +, asymptomatic, defer to primary Ur Osm and U lytes pending HTN- On lisinopril and Amlodipine per Home med list Mechanical fall with resultant right intertrochanteric hip fracture, status post open reduction and internal fixation. Atrial fibrillation, rate controlled, not on anticoagulation. Hx of Seizures- On Dilantin DW Pt and RN COMMENT/RELEVANT DATA Meds Current Medications Medications (Trade) Dose Ordered Sig/Melodie Start Time Stop Time Status Last Admin Dose Admin Acetaminophen/ Hydrocodone Bitart (Lortab 7.5/325) 1 tab PRN Q4HRS PRN 06/02/19 18:00 06/04/19 09:03 1 TAB Amlodipine Besylate (Norvasc) 5 mg DAILY 06/02/19 09:00 06/04/19 11:10 5 MG Bisacodyl (Dulcolax Supp) 10 mg 1X PRN PRN 06/03/19 16:00 06/04/19 15:59 DC Cefazolin Sodium (Ancef) 1 gm Q6H 06/02/19 23:00 06/03/19 11:01 DC 06/03/19 09:44 1 GM Cefazolin Sodium 1 gm/Dextrose 50 ml @ 100 mls/hr Q6H 06/02/19 18:15 06/03/19 06:44 UNV Dexamethasone Sodium Phosphate (Decadron) 4 mg STK-MED ONCE 06/02/19 16:02 06/02/19 16:03 DC Dextrose (Dextrose 50%-Water Syringe) 12.5 gm PRN Q15MIN PRN 06/02/19 18:00 Famotidine (Pepcid Vial) 20 mg STK-MED ONCE 06/02/19 16:02 06/02/19 16:03 DC Fentanyl Citrate (Fentanyl 2ml Vial) 25 mcg PRN Q1HR PRN 06/02/19 18:00 06/03/19 11:28 DC Folic Acid (Folic Acid) 1 mg HS 06/01/19 21:00 06/04/19 22:01 1 MG Glycopyrrolate (Robinul) 1 mg STK-MED ONCE 06/02/19 17:06 06/02/19 17:07 DC Hydromorphone HCl (Dilaudid) 0.5 mg PRN Q10MIN PRN 06/02/19 08:45 06/03/19 08:44 DC Lidocaine HCl (Lidocaine Pf 2% Vial) 5 ml STK-MED ONCE 06/02/19 16:02 06/02/19 16:03 DC Lidocaine HCl (Xylocaine-Mpf 1% 2ml Vial) 2 ml 1X PRN PRN 06/02/19 08:45 06/03/19 08:44 DC Lisinopril (Prinivil) 20 mg DAILY 06/02/19 09:00 06/05/19 08:40 20 MG Magnesium Hydroxide (Milk Of Magnesia) 2,400 mg 1X PRN PRN 06/03/19 06:00 06/04/19 05:59 DC Metoprolol Tartrate (Lopressor) 25 mg BID 06/01/19 13:00 06/05/19 08:39 25 MG Morphine Sulfate (Morphine Sulfate) 2 mg PRN Q1HR PRN 06/02/19 18:00 Neostigmine Methylsulfate (Neostigmine Methylsulfate) 5 mg STK-MED ONCE 06/02/19 17:06 06/02/19 17:07 DC Ondansetron HCl (Zofran) 4 mg PRN Q4HRS PRN 06/02/19 18:00 Oxycodone HCl (Roxicodone) 5 mg PRN Q3HRS PRN 06/02/19 18:00 Phenylephrine HCl (PHENYLEPHRINE in 0.9% NACL PF) 1 mg STK-MED ONCE 06/02/19 16:53 06/02/19 16:54 DC Phenytoin Sodium (Dilantin) 100 mg QHS 06/01/19 21:00 06/04/19 22:01 100 MG Polyethylene Glycol (miraLAX PACKET) 17 gm PRN DAILY PRN 06/02/19 18:00 Prochlorperazine Edisylate (Compazine) 5 mg PACU PRN PRN 06/02/19 08:45 06/03/19 08:44 DC Propofol 20 ml @ As Directed STK-MED ONCE 06/02/19 16:02 06/02/19 16:03 DC Ringer's Solution 1,000 ml @ 30 mls/hr Q24H 06/02/19 08:33 06/02/19 20:32 DC 06/02/19 20:55 30 MLS/HR Rocuronium Ucon (Zemuron) 50 mg STK-MED ONCE 06/02/19 16:02 06/02/19 16:03 DC Senna/Docusate Sodium (Senna Plus) 1 tab DAILY 06/03/19 09:00 06/05/19 08:40 1 TAB Sodium Chloride 1,000 ml @ 75 mls/hr [id number] 06/04/19 13:00 06/05/19 03:24 75 MLS/HR Tramadol HCl (Ultram) 50 mg PRN QID PRN 06/02/19 18:00 Warfarin Sodium (Coumadin Per Pharmacy) 1 each PRN DAILY PRN 06/03/19 18:00 06/04/19 08:27 1 EACH Warfarin Sodium (Coumadin) 2 mg 1X WARF ONCE 06/04/19 16:00 06/04/19 16:01 DC 06/04/19 16:30 2 MG Lab Laboratory Tests Test 06/04/19 16:30 06/05/19 05:43 Urine Collection Type Unknown Urine Color Yellow Urine Clarity Clear Urine pH 6.0 Urine Specific [place] <=1.005 Urine Protein Negative mg/dL (NEG-TRACE) Urine Glucose (UA) Negative mg/dL (NEG) Urine Ketones (Stick) Negative mg/dL (NEG) Urine Blood Negative (NEG) Urine Nitrite Negative (NEG) Urine Bilirubin Negative (NEG) Urine Urobilinogen Dipstick 1.0 mg/dL (0.2 mg/dL) Urine Leukocyte Esterase Moderate (NEG) Urine RBC Rare /HPF (0-2) Urine WBC 11-20 /HPF (0-4) Urine Squamous Epithelial Cells Many /LPF Urine Bacteria Few /HPF (0-FEW) Hemoglobin 9.3 g/dL (12.0-15.5) Hematocrit 27.1 % (36.0-47.0) Prothrombin Time 20.1 SEC (11.7-14.0) Prothromb Time International Ratio 1.7 (0.8-1.1) Sodium Level 132 mmol/L (136-145) Potassium Level 3.9 mmol/L (3.5-5.1) Chloride Level 97 mmol/L (98-107) Carbon Dioxide Level 28 mmol/L (21-32) Anion Gap 7 (6-14) Blood Urea Nitrogen 9 mg/dL (7-20) Creatinine 0.5 mg/dL (0.6-1.0) Estimated GFR (Cockcroft-Gault) 118.1 Glucose Level 108 mg/dL (70-99) Calcium Level 8.1 mg/dL (8.5-10.1) Results All relevant outside records, renal labs, imaging studies, telemetry/EKG's were reviewed. HARLEY NEWBY MD Jun 05, 2019 10:17
[2019-06-05 11:00] VITALS: BP 88/52
--- NOTE | 2019-06-05 11:24 | NUR ---
Pharmacy Warfarin Dosing Note S:Pharmacy consulted to assist with anticoagulation therapy started 06/02/19 with target INR: 1.6 - 2.5 O:MEGAN ELLIOTT is a 83 year old F with Hip Fracture Allergies:No Known Drug Allergies Height: 5 feet, 2 inches Weight: 53.525681 kg LABS: Last INR: 1.7 Last HGB: 9.3 Last HCT: 27.1 Last PLT: 157 Ongoing Drug Interactions: Phenytoin A:INR within desired Range. Target Range for this patient is: 1.6 - 2.5 P: Warfarin dose: 3 mg will be given today prior to discharge. Give 2 mg daily. Draw INR on Wednesday, 06/06 and request attending physician to dose warfarin for a goal INR 1.6 - 2.5 through end of therapy 07/14/19 (6 weeks of therapy). Indication for warfarin is prevention of VTE after major joint surgery. DANIEL SOOD RP, 06/05/19 1124
--- NOTE | 2019-06-05 11:58 | NUR ---
SS following up with discharge planning. Pt accepted at [facility] pending insurance authorization from [facility]. SS will await authorization and will proceed accordingly.
--- NOTE | 2019-06-05 13:51 | PDOC ---
PROGRESS NOTES Assessment Assessment IMPRESSION: Gait disorder. Fall. Right intertrochanteric hip fracture s/p open reduction and internal fixation. UTI. Seizure, last seizure was 15 to 2 years ago per her daughter. HTN. RECOMMENDATIONS/PLAN: She has been treated with Dilantin. Treat medical diseases. FU with Ortho. PT/OT. Planned to go SNU. Discussed with her daughter at bedside on 06/05/19. Past Medical History Cardiovascular: HTN CENTRAL NERVOUS SYSTEM: Seizure Past Surgical History No pertinent history Family History No pertinent hx Social History , lives with daughter, ex-smoker, no alcohol, retired Allergies No Known Drug Allergies (Unverified , 06/01/19) ROS Negative for fever, chills, weight loss, shortness of breath, chest pain, indigestion, hematochezia, melena, and dysuria. Full 14-point review of systems is negative. MEDICATIONS: Refer to MAR PHYSICAL EXAMINATION: General appearance in subacute distress. HEENT: Normocephalic and nontraumatic. Eyes, nose, ears, and throat are unremarkable. Hearing decrease. Neck is supple. No lymphadenopathy. No Crepitus. Cardiovascular: S1, S2, regular rate and rhythm. Pulmonary: Clear to auscultation bilaterally. Abdomen: Bowel sounds are positive. Abdomen is soft, nontender, and nondistended. Extremities: No rash, lesions, or edema. NEUROLOGICAL EXAMINATION: Awake. Not oriented to time, but knew place and person. PERRL. EOMI. CN: no focal findings. Muscle tone: within normal. Muscle strength: 4+. Unwilling to move right side much. DTR: 2 Plantar reflex: Neutral response bilaterally Gait: not able to walk. Sensory exam: no abnormal findings. No cerebellar signs elicited. F-T-N test fine. Objective Objective Vital Signs Date Time Temp Pulse Resp B/P (MAP) Pulse Ox O2 Delivery O2 Flow Rate FiO2 06/05/19 11:00 98.5 76 16 88/52 (64) 90 Room Air 98.5 06/05/19 07:30 2.0 Intake and Output 06/05/19 06:59 Intake Total 100 ml Output Total 1175 ml Balance -1075 ml Intake Oral 100 ml Output Urine Total 1175 ml Vitals Signs Vitals VS - Last 72 Hours, by Label Date Time Temp Pulse Resp B/P (MAP) Pulse Ox O2 Delivery O2 Flow Rate FiO2 06/05/19 11:00 98.5 76 16 88/52 (64) 90 Room Air 98.5 06/05/19 08:40 87 100/53 06/05/19 08:39 87 100/53 06/05/19 08:00 Nasal Cannula 06/05/19 07:30 97.8 87 16 100/53 (69) 99 Nasal Cannula 2.0 97.8 06/05/19 03:30 98.0 80 20 120/68 (85) 99 Nasal Cannula 2.0 98.0 06/04/19 22:55 97.8 82 20 117/65 (82) 99 Nasal Cannula 2.0 97.8 06/04/19 22:01 105 06/04/19 20:00 Nasal Cannula 3.0 06/04/19 19:30 97.7 91 20 101/53 (69) 98 Nasal Cannula 2.0 97.7 06/04/19 15:00 97.9 72 14 89/51 (64) 90 Nasal Cannula 2.0 97.9 06/04/19 11:10 85 120/68 06/04/19 11:10 85 120/68 06/04/19 11:10 85 120/68 06/04/19 11:00 97.6 85 16 120/68 (85) 97 Nasal Cannula 2.0 97.6 06/04/19 10:00 97 Nasal Cannula 2.0 06/04/19 09:03 99 Nasal Cannula 3.0 06/04/19 08:00 Nasal Cannula 3.0 06/04/19 07:00 97.9 81 16 117/58 (77) 99 Nasal Cannula 2.0 97.9 Laboratory Laboratory Laboratory Tests Test 06/04/19 16:30 06/05/19 05:43 Urine Collection Type Unknown Urine Color Yellow Urine Clarity Clear Urine pH 6.0 Urine Specific [place] <=1.005 Urine Protein Negative mg/dL (NEG-TRACE) Urine Glucose (UA) Negative mg/dL (NEG) Urine Ketones (Stick) Negative mg/dL (NEG) Urine Blood Negative (NEG) Urine Nitrite Negative (NEG) Urine Bilirubin Negative (NEG) Urine Urobilinogen Dipstick 1.0 mg/dL (0.2 mg/dL) Urine Leukocyte Esterase Moderate (NEG) Urine RBC Rare /HPF (0-2) Urine WBC 11-20 /HPF (0-4) Urine Squamous Epithelial Cells Many /LPF Urine Bacteria Few /HPF (0-FEW) Hemoglobin 9.3 g/dL (12.0-15.5) Hematocrit 27.1 % (36.0-47.0) Prothrombin Time 20.1 SEC (11.7-14.0) Prothromb Time International Ratio 1.7 (0.8-1.1) Sodium Level 132 mmol/L (136-145) Potassium Level 3.9 mmol/L (3.5-5.1) Chloride Level 97 mmol/L (98-107) Carbon Dioxide Level 28 mmol/L (21-32) Anion Gap 7 (6-14) Blood Urea Nitrogen 9 mg/dL (7-20) Creatinine 0.5 mg/dL (0.6-1.0) Estimated GFR (Cockcroft-Gault) 118.1 Glucose Level 108 mg/dL (70-99) Calcium Level 8.1 mg/dL (8.5-10.1) Medication Medications Current Medications Warfarin Sodium (Coumadin) 2 mg 1X WARF ONCE PO Last administered on 06/04/19at 16:30; Start 06/04/19 at 16:00; Stop 06/04/19 at 16:01; Status DC Warfarin Sodium (Coumadin) 3 mg 1X WARF ONCE PO ; Start 06/05/19 at 16:00; Stop 06/05/19 at 16:01 Warfarin Sodium (Coumadin) 3 mg DAILY16 PO ; Start 06/06/19 at 16:00 Comment Review of Relevant I have reviewed the following items andie (where applicable) has been applied. ADILIA THOMAS MD Jun 05, 2019 13:51
[2019-06-05 15:00] VITALS: BP 110/50
[2019-06-05] MEDS ORDERED: WARF3TAB50 PO (15:25)
--- NOTE | 2019-06-05 15:48 | NUR ---
SS following up with discharge planning. Insurance authorization received for [facility], ; fax [phone]. Discharge orders phoned and faxed to [facility]. Pt will discharge today and go to [facility] at 1600. [facility] to provide transportation. Pt, pt's daughter, and pt's RN notified.
[2019-06-05] MEDS ORDERED: WARFARIN 3 MG TABLET. PO ONE (16:00)
--- NOTE | 2019-06-05 16:23 | NUR ---
DISCHARGE INSTRUCTIONS GIVEN TO NURSE AT [facility]. PIV AND HEART MONITOR REMOVED. PATIENT OFF UNIT PER WHEELCHAIR PER [facility].
[2019-06-05 18:08] LABS: SODIUM, URINE <60 mmol/L (Not Estab.); UR POTASSIUM 11.8 mmol/L (Not Estab.)
[2019-06-06] MEDS ORDERED: WARFARIN 3 MG TABLET. PO SCH (16:00)
[2019-06-07 17:09] LABS: ALBUM 2.8 g/dL (2.9-4.4); ALPHA 1 0.3 g/dL (0.0-0.4); ALPHA 2 0.8 g/dL (0.4-1.0); BETA 0.6 g/dL (0.7-1.3); GAMMA 0.7 g/dL (0.4-1.8); PROTEIN TOTAL 5.2 g/dL (6.0-8.5); SPEP AG RATIO 1.2 (0.7-1.7)
[2019-06-07 18:13] LABS: ANA INTERP Negative (.)
== END 2019-06-05 16:30 | DRG 481 ==
LOC: 2 SOUTH 10:04
PROVIDERS: ADMIT Internal Medicine; ATTEND Internal Medicine
PROC: 0QS636Z Reposition Right Upper Femur with Intramedullary Internal Fixation Device, Percutaneous Approach (ICD-10-PCS; principal; 2019-06-02 14:30)
DX: S72.141A Displaced intertrochanteric fracture of right femur, initial encounter for closed fracture (principal); G25.9 Extrapyramidal and movement disorder, unspecified; N39.0 Urinary tract infection, site not specified; E87.1 Hypo-osmolality and hyponatremia; G40.409 Other generalized epilepsy and epileptic syndromes, not intractable, without status epilepticus; I10 Essential (primary) hypertension; I48.91 Unspecified atrial fibrillation; I49.8 Other specified cardiac arrhythmias; R27.0 Ataxia, unspecified; J44.9 Chronic obstructive pulmonary disease, unspecified; M85.80 Other specified disorders of bone density and structure, unspecified site; R29.6 Repeated falls; M19.90 Unspecified osteoarthritis, unspecified site; W01.0XXA Fall on same level from slipping, tripping and stumbling without subsequent striking against object, initial encounter; Y93.89 Activity, other specified; Y92.89 Other specified places as the place of occurrence of the external cause; Y99.8 Other external cause status; Z86.73 Personal history of transient ischemic attack (TIA), and cerebral infarction without residual deficits; Z91.81 History of falling; Z87.891 Personal history of nicotine dependence; Z98.49 Cataract extraction status, unspecified eye; Z82.41 Family history of sudden cardiac death; Z82.49 Family history of ischemic heart disease and other diseases of the circulatory system; Z80.3 Family history of malignant neoplasm of breast
CPT/HCPCS: 36415; 70450; 70551; 76000; 80048; 80053; 80061; 80185; 81001; 82436; 82533; 82550; 82607; 83935; 84133; 84165; 84300; 84443; 85014; 85018; 85027; 85610; 85651; 86038; 93306; A7015; C1713; C1887; J0690; J1100; J2001; J2370; J2405; J2704; J2710; J3010; J3490; J7030; J7120; 97110; 97116; 97535

== ENCOUNTER 2020-06-02 10:19 | Inpatient (IN) | payer MEDICARE ==
[2020-06-02] VITALS (12 sets, daily range): BP systolic 96–147; BP diastolic 52–75
[~2020-06-02] VITALS: Ht 157.5 cm; Wt 50.8 kg
[~2020-06-02 10:19] MED LIST: AMLO5TAB10 PO; FOLI1TAB16 PO; HYDR-2761 PO; LISI-334 PO; ONDA4TAB12 PO; PHEN100C PO; PHEN300C4 PO; POLY17PO29 PO; SENN-142 PO; WARF3TAB50 PO
[2020-06-02] MEDS ORDERED: OXYB-36 PO (11:57)
[2020-06-02] MEDS ORDERED: PHEN300C4 PO (12:01)
[2020-06-02] MEDS ORDERED: WARF1TAB69 PO (12:01)
[2020-06-02] MEDS ORDERED: DILT240C33 PO (12:05)
[2020-06-02 13:03] LABS: BILIRUBIN,URINE NEGATIVE (NEG); CLARITY,URINE CLEAR; COLOR,URINE YELLOW; NITRITE,URINE NEGATIVE (NEG); PH,URINE 7.5 (<5.0-8.0); PROTEIN,URINE NEGATIVE (NEG-TRACE); UROBILINOGEN,URINE 0.2 mg/dL (0.2 mg/dL)
[2020-06-02 13:09] LABS: SQUAMOUS EPITHELIAL CELL,UR OCC /LPF
[2020-06-02 13:10] LABS: BACTERIA,URINE FEW /HPF (0-FEW)
--- NOTE | 2020-06-02 13:40 | PDOC1 ---
History and Physical Date of Admission Date of Admission DATE: 06/02/20 TIME: 13:25 Identification/Chief Complaint Chief Complaint Confusion Source Source: Chart review, Patient History of Present Illness History of Present Illness Ms Montalvo is an 84yo F w/ PMHx afib, seizures, ex-smoker who presented to [facility] ED with worsening confusion over the last 3 days. Noted with disorientation and slurred speech but no focal neurologic deficits. Her daughter notes she is normally oriented and speaks fluently but over the last several days she has had worsening confusion and has unsteady gait. Patient's not been able to feed herself or regularly take her medications. CT head with 6.9 mm focus of hyperdensity at the base of the sulcus in the pos terior right frontal lobe consistent with a small hemorrhage. CXR with cardiomegaly. EKG upon my review appears to be rate controlled A. fib in the 80s with no ST segment changes. Labs significant for NA 129, K3.8, BUN 9, CR 0.8, platelets 114, INR 2.9, WBC 9, Hb 11.8, platelets 212. Due to her new abnormality on CT head and lack of neurosurgery senior talent management consultant at [facility] they contacted for transfer to [facility], accepted her for ICU admission. Seen in ICU, she is difficult to understand though notably she does not have her dentures in. She notes her toenails been scratching her lately, and she did fall recently and hit her head. She is a bit disoriented and complaints of dysuria, I have sent a UA and see that the leukocyte esterase is positive. He has no focal neurologic deficits. She is asking if she can have something to eat. Past Medical History Cardiovascular: AFIB, HTN Pulmonary: No pertinent hx CENTRAL NERVOUS SYSTEM: Seizure GI: No pertinent hx Heme/Onc: No pertinent hx Hepatobiliary: No pertinent hx Psych: No pertinent hx Musculoskeletal: Osteoarthritis Rheumatologic: No pertinent hx Infectious disease: No pertinent hx Renal/: Other Endocrine: No pertinent hx Past Surgical History Past Surgical History: Total hip replacement Family History Family History: Coronary Artery Disease Social History Smoke: Quit ALCOHOL: none Drugs: None Current Medications Current Medications Active Scripts Active Ondansetron Odt (Ondansetron) 4 Mg Tab.rapdis 1 Tab PO PRN Q6-8HRS 30 Days Miralax (Polyethylene Glycol 3350) 17 Gm Powd.pack 1 Packet PO DAILY Hydrocodone-Apap 5-325 (Hydrocodone Bit/Acetaminophen) 1 Tab Tablet 1 Tab PO Q4H PRN 30 Days Senna-S Laxative Tablet (Sennosides/Docusate Sodium) 1 Each Tablet 1 Each PO BID 30 Days Reported Diltiazem 24Hr Cd (Diltiazem HCl) 240 Mg Cap.er.24h 30 Mg PO TID Warfarin Sodium 1 Mg Tablet 0.5 Mg PO DAILY Phenytoin Sodium Extended 300 Mg Capsule 1 Cap PO QHS 30 Days Oxybutynin Chloride Er (Oxybutynin Chloride) 5 Mg Tab.er.24 1 Tab PO DAILY Warfarin Sodium 3 Mg Tablet 3 Mg PO DAILY Lisinopril 20 Mg Tablet 20 Mg PO DAILY Folic Acid 1 Mg Tablet 1 Tab PO HS Allergies Allergies: Coded Allergies: No Known Drug Allergies (Unverified , 06/01/19) ROS General: YES: Fatigue, Malaise; No: Chills, Night Sweats, Appetite, Other PSYCHOLOGICAL ROS: YES: Memory difficulties; No: Anxiety, Behavioral Disorder, Concentration difficultie, Decreased libido, Depression, Disorientation, Hallucinations, Hostility, Irritablity, Mood Swings, Obsessive thoughts, Physical abuse, Sexual abuse, Sleep disturbances, Suicidal ideation, Other Eyes: No Blurry vision, No Decreased vision, No Double vision, No Dry eyes, No Excessive tearing, No Eye Pain, No Itchy Eyes, No Loss of vision, No Oliver tophobia, No Scotomata, No Uses contacts, No Uses glasses, No Other HEENT: No: Heacaches, Visual Changes, Hearing change, Nasal congestion, Nasal discharge, Oral lesions, Sinus pain, Sore Throat, Epistaxis, Sneezing, Snoring, Tinnitus, Vertigo, Vocal changes, Other ALLERGY AND IMMUNOLOGY: No: Hives, Insect Bite Sensitivity, Itchy/Watery Eyes, Nasal Congestion, Post Nasal Drip, Seasonal Allergies, Other Hematological and Lymphatic: No: Bleeding Problems, Blood Clots, Blood Transfusions, Brusing, Night Sweats, Pallor, Swollen Lymph Nodes, Other ENDOCRINE: No: Breast Changes, Galactorrhea, Hair Pattern Changes, Hot Flashes, Malaise/lethargy, Mood Swings, Palpitations, Polydipsia/polyuria, Skin Changes, Temperature Intolerance, Unexpected Weight Changes, Other Breast: No New/Changing Breast Lumps, No Nipple changes, No Nipple discharge, No Other Respiratory: No: Cough, Hemoptysis, Orthopnea, Pleuritic Pain, Shortness of breath, SOB with excertion, Sputum Changes, Stridor, Tachypnea, Wheezing, Other Cardiovascular: No Chest Pain, No Palpitations, No Orthopnea, No Paroxysmal Noc. Dyspnea, No Edema, No Lt Headedness, No Other Gastrointestinal: No Nausea, No Vomiting, No Abdominal Pain, No Diarrhea, No Constipation, No Melena, No Hematochezia, No Other Genitourinary: YES Dysuria; No Frequency, No Incontinence, No Hematuria, No Retention, No Discharge, No Urgency, No Pain, No Flank Pain, No Other, No , No , No , No , No , No , No Musculoskeletal: Yes Gait Disturbance; No Joint Pain, No Joint Stiffness, No Joint Swelling, No Muscle Pain, No Muscular Weakness, No Pain In:, No Swelling In:, No Other Neurological: Yes Gait Disturbance; No Behavorial Changes, No Bowel/Bladder ControlChng, No Confusion, No Dizziness, No Headaches, No Impaired Coord/balance, No Memory Loss, No Numbness/Tingling, No Seizures, No Speech Problems, No Tremors, No Visual Changes, No Weakness, No Other Skin: No Dry Skin, No Eczema, No Hair Changes, No Lumps, No Mole Changes, No Mottling, No Nail Changes, No Pruritus, No Rash, No Skin Lesion Changes, No Other, No Acne Physical Exam General: Alert, Cooperative, No acute distress HEENT: Atraumatic, PERRLA, EOMI, Mucous membr. moist/pink, Other (adentulous) Lungs: Clear to auscultation, Normal air movement Heart: irregularly irregular Abdomen: Normal bowel sounds, Soft, No tenderness, No hepatosplenomegaly, No masses Rectal Exam: not examined Extremities: No clubbing, No cyanosis, No edema, Normal pulses, No tenderness/swelling Skin: No rashes, No breakdown, No significant lesion, Other (Poor nail care on feet) Neuro: Strength at 5/5 X4 ext, Normal tone, Sensation intact, Cranial nerves 3- 12 NL, Reflexes 2+ Psych/Mental Status: Other (Confused) Vitals Vitals Vital Signs Date Time Temp Pulse Resp B/P (MAP) Pulse Ox O2 Delivery O2 Flow Rate FiO2 06/02/20 13:00 77 19 108/52 (70) 97 Room Air 06/02/20 12:00 98.8 98.8 Labs Labs Laboratory Tests Test 06/02/20 12:55 Urine Collection Type Unknown Urine Color Yellow Urine Clarity Clear Urine pH 7.5 (<5.0-8.0) Urine Specific [place] <=1.005 (1.000-1.030) Urine Protein Negative mg/dL (NEG-TRACE) Urine Glucose (UA) Negative mg/dL (NEG) Urine Ketones (Stick) Negative mg/dL (NEG) Urine Blood Small (NEG) Urine Nitrite Negative (NEG) Urine Bilirubin Negative (NEG) Urine Urobilinogen Dipstick 0.2 mg/dL (0.2 mg/dL) Urine Leukocyte Esterase Moderate (NEG) Urine RBC 3-5 /HPF (0-2) Urine WBC 5-10 /HPF (0-4) Urine Squamous Epithelial Cells Occ /LPF Urine Bacteria Few /HPF (0-FEW) Laboratory Tests Test 06/02/20 12:55 Urine Collection Type Unknown Urine Color Yellow Urine Clarity Clear Urine pH 7.5 (<5.0-8.0) Urine Specific [place] <=1.005 (1.000-1.030) Urine Protein Negative mg/dL (NEG-TRACE) Urine Glucose (UA) Negative mg/dL (NEG) Urine Ketones (Stick) Negative mg/dL (NEG) Urine Blood Small (NEG) Urine Nitrite Negative (NEG) Urine Bilirubin Negative (NEG) Urine Urobilinogen Dipstick 0.2 mg/dL (0.2 mg/dL) Urine Leukocyte Esterase Moderate (NEG) Urine RBC 3-5 /HPF (0-2) Urine WBC 5-10 /HPF (0-4) Urine Squamous Epithelial Cells Occ /LPF Urine Bacteria Few /HPF (0-FEW) Images Images Chest AP portable at 0502: The heart size is enlarged but unchanged. Mediastinum is unremarkable. Lung harley are clear. No acute bony abnormalities are seen. Impression: Stable cardiomegaly. No acute cardiopulmonary disease. CT head without contrast Ventricular systems are symmetric and not abnormally dilated. No midline shift is seen. There are patchy deep white matter changes in the frontal and parietal lobes. There is a small 6.9 mm focus of hyperdensity suggesting a small bleed at the retana-white junction in the posterior right frontal lobe. No other site of hemorrhage, infarct or mass is seen. No edema is evident. No abnormalities of seen at the orbits. The paranasal sinuses show mucosal thickening in the left maxillary antrum. Remaining paranasal sinuses and mastoid air cells are clear. No acute skull abnormality is seen. IMPRESSION: Cerebral atrophy with microvascular ischemic changes in the frontal and parietal lobes. 6.9 mm focus of hyperdensity at the base of the sulcus in the posterior right frontal lobe consistent with a small hemorrhage. Recommend follow-up. Mucosal disease involving the left maxillary antrum. VTE Prophylaxis Ordered VTE Prophylaxis Devices: No VTE Pharmacological Prophylaxi: Yes Assessment/Plan Assessment/Plan A/P: Acute encephalopathy - likely metabolic from hyponatremia, possibly post-ictal, also with UTI and possible small intracranial hemorrhage Falls - gait testing with PT Hyponatremia - likely nutritional, will have director of materials to see Small intracranial hemorrhage - possibly from fall, will monitor, hold warfarin. Consult neurosurgery. 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 I am concerned for home care based on this finding. FEN - NPO pending bedside swallow evaluation PPX - therapeutic INR, will add SCDs DNR/DNI Dispo - ICU, can downgrade to CVC status given 12 hours with no worsening, repeat CT head ordered for AM Justicifation of Admission Dx: Justifications for Admission: Justification of Admission Dx: Yes OLINDA VASQUEZ MD Jun 02, 2020 13:40
[2020-06-02] MEDS ORDERED: ONDANSETRON ODT 4 MG TAB.RAPDIS. PO PRN (16:00)
[2020-06-02] MEDS ORDERED: ONDANSETRON PF 4 MG/2 ML VIAL. IV PRN (16:45)
[2020-06-02] MEDS ORDERED: ACETAMINOPHEN 325 MG TABLET. PO PRN (16:45)
[2020-06-02] MEDS: dilTIAZem HCL 30 MG TABLET PO SCH ×2 (16:53→22:01)
[2020-06-02] MEDS: cefTRIAXone IV Push 1 GM VIAL. IVP SCH (17:02)
--- NOTE | 2020-06-02 17:21 | PDOC2 ---
NEUROLOGY CONSULT Date of Admission Date of Admission DATE: 06/02/20 TIME: 17:19 Reason for Consult Reason for Consult: Altered mental status, seizures, possible cerebral hemorrhage Referring Physician Referring Physician: Dr. Bajwa Source Source: Chart review History of Present Illness History of Present Illness The patient is an 84-year-old right-handed female who has not been acting right the last 3 to 4 days. She went to the [facility] emergency department where she was found to have evidence of urinary tract infection as well as a small intracranial hemorrhage as reviewed on the CT scan below. There is no history of head injury or stroke. She does have a history of seizures but her last seizure was several years ago. She lives with 1 of her daughters and does admit to some memory problems. She also has been having some frequent falls recently. 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) Family History Family History: No pertinent hx Social History Social History , living arrangements as described above, no alcohol or tobacco Current Medications Current Medications Current Medications Folic Acid (Folic Acid) 1 mg HS PO ; Start 06/02/20 at 21:00 Lisinopril (Prinivil) 20 mg DAILY PO ; Start 06/03/20 at 09:00 Ondansetron HCl (Zofran Odt) 4 mg PRN Q4HRS PRN PO nausea/vomiting; Start 06/02/20 at 16:00 Polyethylene Glycol (miraLAX PACKET) 17 gm DAILY PO ; Start 06/03/20 at 09:00 Senna/Docusate Sodium (Senna Plus) 1 tab BID PO ; Start 06/02/20 at 21:00 Oxybutynin Chloride (Ditropan) 5 mg [id number] PO ; Start 06/02/20 at 21:00 Phenytoin Sodium (Dilantin) 300 mg HS PO ; Start 06/02/20 at 21:00 Diltiazem HCl (Cardizem) 30 mg Q8HRS PO Last administered on 06/02/20at 16:53; Start 06/02/20 at 16:00 Ondansetron HCl (Zofran) 4 mg PRN Q4HRS PRN IV NAUSEA/VOMITING; Start 06/02/20 at 16:45 Acetaminophen (Tylenol) 650 mg PRN Q4HRS PRN PO TEMP OVER 100.4F OR MILD PAIN; Start 06/02/20 at 16:45 Ceftriaxone Sodium (Rocephin) 1 gm Q24H IVP Last administered on 06/02/20at 17:02; Start 06/02/20 at 17:00 Active Scripts Active Ondansetron Odt (Ondansetron) 4 Mg Tab.rapdis 1 Tab PO PRN Q6-8HRS 30 Days Miralax (Polyethylene Glycol 3350) 17 Gm Powd.pack 1 Packet PO DAILY Hydrocodone-Apap 5-325 (Hydrocodone Bit/Acetaminophen) 1 Tab Tablet 1 Tab PO Q4H PRN 30 Days Senna-S Laxative Tablet (Sennosides/Docusate Sodium) 1 Each Tablet 1 Each PO BID 30 Days Reported Diltiazem 24Hr Cd (Diltiazem HCl) 240 Mg Cap.er.24h 30 Mg PO TID Warfarin Sodium 1 Mg Tablet 0.5 Mg PO DAILY Phenytoin Sodium Extended 300 Mg Capsule 1 Cap PO QHS 30 Days Oxybutynin Chloride Er (Oxybutynin Chloride) 5 Mg Tab.er.24 1 Tab PO DAILY Warfarin Sodium 3 Mg Tablet 3 Mg PO DAILY Lisinopril 20 Mg Tablet 20 Mg PO DAILY Folic Acid 1 Mg Tablet 1 Tab PO HS Allergies Allergies: Coded Allergies: No Known Drug Allergies (Unverified , 06/01/19) ROS Review of System Negative for fever, chills, weight loss, shortness of breath, chest pain, indigestion, hematochezia, melena, and dysuria. Full 14-point review of systems is negative. Physical Exam Physical Examination General: Well-developed, well-nourished white female in no acute distress HEENT: Normocephalic andatraumatic. Temporal arteriespulsatile and nontender. Neck: Supple without bruit, no meningismus Musculoskeletal: Stability:see neurologic. Gait exam:see neurologic. Tone:see neurologic.Strength:see neurologic. Neurological: Mental Status:intact, orientation, memory, attention span/concentration, language, fund of knowledge normal. Cranial Nerves:Pupils equal and reactive to light, extraocular movements areintact, visual harley are full to confrontation. Facial sensation is normal. Other than a tendency for slight ptosis of the left eye, there is no facial asymmetry. Vestibulo-ocular reflex is intact. Palate elevates and tongue protrudes in midline. She passed her bedside swallow evaluation. All other cranial related problems are negative except as mentioned before.Reflexes:2+ and symmetric with flexor plantar responses. Motor:5/5 strength with normal tone and bulk. Coordination:Finger-nose finger and saxu-pd-[id number] testing are normal. Rapid alternating movements and fine finger movements are intact. Gait: Not tested. Sensory:Normal pinprick, vibration, light touch, proprioception. Vitals VITALS Vital Signs Date Time Temp Pulse Resp B/P (MAP) Pulse Ox O2 Delivery O2 Flow Rate FiO2 06/02/20 16:53 80 141/63 06/02/20 16:00 Room Air 06/02/20 16:00 98.6 21 95 98.6 Labs Labs Laboratory Tests Test 06/02/20 12:55 Urine Collection Type Unknown Urine Color Yellow Urine Clarity Clear Urine pH 7.5 (<5.0-8.0) Urine Specific [place] <=1.005 (1.000-1.030) Urine Protein Negative mg/dL (NEG-TRACE) Urine Glucose (UA) Negative mg/dL (NEG) Urine Ketones (Stick) Negative mg/dL (NEG) Urine Blood Small (NEG) Urine Nitrite Negative (NEG) Urine Bilirubin Negative (NEG) Urine Urobilinogen Dipstick 0.2 mg/dL (0.2 mg/dL) Urine Leukocyte Esterase Moderate (NEG) Urine RBC 3-5 /HPF (0-2) Urine WBC 5-10 /HPF (0-4) Urine Squamous Epithelial Cells Occ /LPF Urine Bacteria Few /HPF (0-FEW) Laboratory Tests Test 06/02/20 12:55 Urine Collection Type Unknown Urine Color Yellow Urine Clarity Clear Urine pH 7.5 (<5.0-8.0) Urine Specific [place] <=1.005 (1.000-1.030) Urine Protein Negative mg/dL (NEG-TRACE) Urine Glucose (UA) Negative mg/dL (NEG) Urine Ketones (Stick) Negative mg/dL (NEG) Urine Blood Small (NEG) Urine Nitrite Negative (NEG) Urine Bilirubin Negative (NEG) Urine Urobilinogen Dipstick 0.2 mg/dL (0.2 mg/dL) Urine Leukocyte Esterase Moderate (NEG) Urine RBC 3-5 /HPF (0-2) Urine WBC 5-10 /HPF (0-4) Urine Squamous Epithelial Cells Occ /LPF Urine Bacteria Few /HPF (0-FEW) Images Images CT head without contrast Comparison is made to previous study dated 07/24/2015. Axial images were obtained through the brain. No contrast was administered. Exposure: One or more of the following individualized dose reduction techniques were utilized for this examination: 1. Automated exposure control 2. Adjustment of the mA and/or kV according to patient size 3. Use of iterative reconstruction technique. Ventricular systems are symmetric and not abnormally dilated. No midline shift is seen. There are patchy deep white matter changes in the frontal and parietal lobes. There is a small 6.9 mm focus of hyperdensity suggesting a small bleed at the retana-white junction in the posterior right frontal lobe. No other site of hemorrhage, infarct or mass is seen. No edema is evident. No abnormalities of seen at the orbits. The paranasal sinuses show mucosal thickening in the left maxillary antrum. Remaining paranasal sinuses and mastoid air cells are clear. No acute skull abnormality is seen. IMPRESSION: Cerebral atrophy with microvascular ischemic changes in the frontal and parietal lobes. 6.9 mm focus of hyperdensity at the base of the sulcus in the posterior right frontal lobe consistent with a small hemorrhage. Recommend follow-up. Mucosal disease involving the left maxillary antrum. Assessment/Plan Assessment/Plan Impression: Posterior right frontal lobe small hemorrhage, versus artifact Epilepsy, on Dilantin History of SIADH, hyponatremia, sodium was 129 at [facility]. Phenytoin is a rare cause of this. Suspect some mild underlying dementia. Recommendations: MRI of the brain tomorrow Repeat CT head tonight if any neurological deterioration ICU monitoring Check Dilantin level in the morning, already ordered Follow sodium Follow INR No need for EEG Additional laboratory studies regarding her cognitive problems. I do not believe that she needs further aggressive reversal of her warfarin given the tiny size of the hemorrhage and her stable neurological examination. Thank you for letting me help with the patient's care. STONEY COPELAND MD Jun 02, 2020 17:21
[2020-06-02] MEDS: OXYBUTYNIN CHLORIDE 5 MG TABLET PO SCH (20:43)
[2020-06-02] MEDS: SENNOSIDES/DOCUSATE 8.6/50MG TABLET. PO SCH (20:43)
[2020-06-02] MEDS: FOLIC ACID 1 MG TABLET. PO SCH (20:43)
[2020-06-02] MEDS ORDERED: PHENYTOIN SODIUM EXTENDED 100 MG CAPSULE PO SCH (21:00)
[2020-06-03] VITALS (7 sets, daily range): BP systolic 102–143; BP diastolic 53–71
[2020-06-03 04:39] LABS: BASO % 1 % (0-3); EOS # 0.2 x10^3/uL (0.0-0.7); EOS % 3 % (0-3); HEMATOCRIT 33.7 % (36.0-47.0); HEMOGLOBIN 11.7 g/dL (12.0-15.5); LYMPH # 1.4 x10^3/uL (1.0-4.8); LYMPH % 20 % (24-48); MEAN CORPUSCULAR HEMOGLOBIN 34 pg (25-35); MEAN CORPUSCULAR HGB CONC 35 g/dL (31-37); MEAN CORPUSCULAR VOLUME 97 fL (79-100); MONO % 14 % (0-9); NEUT # 4.5 x10^3/uL (1.8-7.7); NEUT % 62 % (31-73); PLATELET COUNT 214 x10^3/uL (140-400); RED BLOOD COUNT 3.48 x10^6/uL (3.50-5.40); RED CELL DISTRIBUTION WIDTH 13.8 % (11.5-14.5); WHITE BLOOD COUNT 7.2 x10^3/uL (4.0-11.0)
[2020-06-03 05:07] LABS: ANION GAP 8 (6-14); BLOOD UREA NITROGEN 9 mg/dL (7-20); C-REACTIVE PROTEIN 98.4 mg/L (0-3.3); CALCIUM 8.4 mg/dL (8.5-10.1); CARBON DIOXIDE 26 mmol/L (21-32); CHLORIDE 96 mmol/L (98-107); CREATININE 0.7 mg/dL (0.6-1.0); GFR 79.9; GLUCOSE 83 mg/dL (70-99); POTASSIUM 4.2 mmol/L (3.5-5.1); SODIUM 130 mmol/L (136-145)
[2020-06-03 05:19] LABS: PHENY 28.5 mcg/mL (10.0-20.0)
[2020-06-03] MEDS: dilTIAZem HCL 30 MG TABLET PO SCH ×3 (05:58→20:46)
[2020-06-03] MEDS: OXYBUTYNIN CHLORIDE 5 MG TABLET PO SCH ×3 (08:42→20:46)
[2020-06-03] MEDS: LISINOPRIL 20 MG TABLET PO SCH (08:42)
[2020-06-03] MEDS: SENNOSIDES/DOCUSATE 8.6/50MG TABLET. PO SCH ×2 (08:42→20:46)
[2020-06-03] MEDS: POLYETHYLENE GLYCOL 3350 17 GM PACKET. PO SCH (08:42)
--- NOTE | 2020-06-03 09:11 | PDOC ---
[facility] [facility]GRESS NOTE Chief Complaint Chief Complaint Acute encephalopathy - likely metabolic from hyponatremia, possibly post-ictal, also with UTI and possible small intracranial hemorrhage Falls - gait testing with PT Hyponatremia - likely nutritional, will have tools developer to see. tolerating diet. repeat am electrolytes Small intracranial hemorrhage - possibly from fall, will monitor, hold warfarin. Consult neurosurgery. Atrial fibrillation - on diltiazem q 8hrs and warfarin, will consult cardiology for recommendations on changing regimen given her confusion and poor self care TID dosing of meds may be difficult to manage appropriately Seizures -elevated dilantin levels. HOLD dilantin for now. 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 I am concerned for home care based on this finding. FEN - Regular diet PPX - therapeutic INR, will add SCDs DNR/DNI Dispo - transfer to [address] [place] [address]. Pending brain MRI Discussed with RN Total critical care time: 32 minutes History of Present Illness History of Present Illness 84yo F w/ PMHx afib, seizures, ex-smoker who presented to [facility] ED with worsening confusion over the last 3 days. Noted with disorientation and slurred speech but no focal neurologic deficits. Her daughter notes she is normally oriented and speaks fluently but over the last several days she has had worsening confusion and has unsteady gait. Patient's not been able to feed herself or regularly take her medications. CT head with 6.9 mm focus of hyperdensity at the base of the sulcus in the posterior right frontal lobe consistent with a small hemorrhage. CXR with ca rdiomegaly. EKG upon my review appears to be rate controlled A. fib in the 80s with no ST segment changes. Labs significant for NA 129, K3.8, BUN 9, CR 0.8, platelets 114, INR 2.9, WBC 9, Hb 11.8, platelets 212. Due to her new abnormality on CT head and lack of neurosurgery jd edwards consultant at [facility] they contacted for transfer to [facility], accepted her for ICU admission. 06/03/2020 Patient seen and examined bedside. She it tolerating diet without choking spells. She has no obvious facial deficits. no pronator drift. Vitals/I&O Vitals/I&O: Vital Signs Date Time Temp Pulse Resp B/P (MAP) Pulse Ox O2 Delivery O2 Flow Rate FiO2 06/03/20 08:42 94 124/64 06/03/20 08:00 Room Air 06/03/20 04:00 98.4 20 94 98.4 I & O 06/02/20 06/02/20 06/03/20 15:00 23:00 07:00 Intake Total 50 ml 100 ml Output Total 1565 ml 735 ml 475 ml Balance -1515 ml -635 ml -475 ml Physical Exam Physical Exam: Alert, oriented, no acute distress EOMI, sclera non-icteric Neck supple RRR, no murmur CTAB, no wheezes, crackles or rhonchi Soft, NT, ND, normal bowel sounds, no rebound, guarding. Negative Zheng's sign. No edema, cyanosis. Normal capillary refill. Calm, cooperative, mood/affect within normal limits General: Alert, Cooperative, No acute distress Abdomen: Normal bowel sounds, Soft, No tenderness, No hepatosplenomegaly, No masses Extremities: No clubbing, No cyanosis, No edema, Normal pulses, No tenderness/swelling Skin: No rashes, No breakdown, No significant lesion, Other (Poor nail care on feet) Labs Labs: Laboratory Tests Test 06/02/20 12:55 06/03/20 04:20 06/03/20 04:25 Urine Collection Type Unknown Urine Color Yellow Urine Clarity Clear Urine pH 7.5 (<5.0-8.0) Urine Specific [place] <=1.005 (1.000-1.030) Urine Protein Negative mg/dL (NEG-TRACE) Urine Glucose (UA) Negative mg/dL (NEG) Urine Ketones (Stick) Negative mg/dL (NEG) Urine Blood Small (NEG) Urine Nitrite Negative (NEG) Urine Bilirubin Negative (NEG) Urine Urobilinogen Dipstick 0.2 mg/dL (0.2 mg/dL) Urine Leukocyte Esterase Moderate (NEG) Urine RBC 3-5 /HPF (0-2) Urine WBC 5-10 /HPF (0-4) Urine Squamous Epithelial Cells Occ /LPF Urine Bacteria Few /HPF (0-FEW) Prothrombin Time 16.0 SEC (11.7-14.0) Prothromb Time International Ratio 1.3 (0.8-1.1) Sodium Level 130 mmol/L (136-145) Potassium Level 4.2 mmol/L (3.5-5.1) Chloride Level 96 mmol/L (98-107) Carbon Dioxide Level 26 mmol/L (21-32) Anion Gap 8 (6-14) Blood Urea Nitrogen 9 mg/dL (7-20) Creatinine 0.7 mg/dL (0.6-1.0) Estimated GFR (Cockcroft-Gault) 79.9 Glucose Level 83 mg/dL (70-99) Calcium Level 8.4 mg/dL (8.5-10.1) C-Reactive Protein, Quantitative 98.4 mg/L (0-3.3) Thyroid Stimulating Hormone (TSH) 0.518 uIU/mL (0.358-3.74) Phenytoin (Dilantin) Level 28.5 mcg/mL (10.0-20.0) Phenytoin Last Dose Date 06/01/20 Phenytoin Last Dose Time 0700 White Blood Count 7.2 x10^3/uL (4.0-11.0) Red Blood Count 3.48 x10^6/uL (3.50-5.40) Hemoglobin 11.7 g/dL (12.0-15.5) Hematocrit 33.7 % (36.0-47.0) Mean Corpuscular Volume 97 fL (79-100) Mean Corpuscular Hemoglobin 34 pg (25-35) Mean Corpuscular Hemoglobin Concent 35 g/dL (31-37) Red Cell Distribution Width 13.8 % (11.5-14.5) Platelet Count 214 x10^3/uL (140-400) Neutrophils (%) (Auto) 62 % (31-73) Lymphocytes (%) (Auto) 20 % (24-48) Monocytes (%) (Auto) 14 % (0-9) Eosinophils (%) (Auto) 3 % (0-3) Basophils (%) (Auto) 1 % (0-3) Neutrophils # (Auto) 4.5 x10^3/uL (1.8-7.7) Lymphocytes # (Auto) 1.4 x10^3/uL (1.0-4.8) Monocytes # (Auto) 1.0 x10^3/uL (0.0-1.1) Eosinophils # (Auto) 0.2 x10^3/uL (0.0-0.7) Basophils # (Auto) 0.0 x10^3/uL (0.0-0.2) Review of Systems Review of Systems: CONSTITUTIONAL: No fever or chills EYES: No recent changes SKIN: No rash or itching CARDIOVASCULAR: No chest pain, syncope, palpitations, or edema RESPIRATORY: No SOB or cough GASTROINTESTINAL: No nausea, vomiting or abdominal pain NEUROLOGICAL: No headaches or weakness ENDOCRINE: No cold or heat intolerance GENITOURINARY: No urgency or frequency of urination MUSCULOSKELETAL: No back pain or joint pain LYMPHATICS: No enlarged lymph nodes PSYCHIATRIC: No anxiety or depression Comment Review of Relevant I have reviewed the following items andie (where applicable) has been applied. Medications: Current Medications Medications (Trade) Dose Ordered Sig/Melodie Route PRN Reason Start Time Stop Time Status Last Admin Dose Admin Folic Acid (Folic Acid) 1 mg HS PO 06/02/20 21:00 06/02/20 20:43 Lisinopril (Prinivil) 20 mg DAILY PO 06/03/20 09:00 06/03/20 08:42 Polyethylene Glycol (miraLAX PACKET) 17 gm DAILY PO 06/03/20 09:00 06/03/20 08:42 Senna/Docusate Sodium (Senna Plus) 1 tab BID PO 06/02/20 21:00 06/03/20 08:42 Oxybutynin Chloride (Ditropan) 5 mg [id number] PO 06/02/20 21:00 06/03/20 08:42 Phenytoin Sodium (Dilantin) 300 mg HS PO 06/02/20 21:00 06/02/20 20:43 Diltiazem HCl (Cardizem) 30 mg Q8HRS PO 06/02/20 16:00 06/03/20 05:58 Ceftriaxone Sodium (Rocephin) 1 gm Q24H IVP 06/02/20 17:00 06/02/20 17:02 Justicifation of Admission Dx: Justifications for Admission: Justification of Admission Dx: Yes OLLIE PARRISH MD Jun 03, 2020 09:11
--- NOTE | 2020-06-03 09:23 | PDOC2 ---
CARDIAC CONSULT DATE OF CONSULT Date of Consult DATE: 06/03/20 TIME: 09:03 REASON FOR CONSULT Reason for Consult: AFIB, rate control recs REFERRING PHYSICIAN Referring Physician: Dr. Bajwa SOURCE Source: Chart review HISTORY OF PRESENT ILLNESS HISTORY OF PRESENT ILLNESS This is a 84 yo female who presented initially to [facility] secondary to altered mental status. CT head noted to be abnormal and patient was transferred to [facility] for further evaluation and treatment. EKG noted with AFIB, which prompted this consult. Remains in AFIB and with controlled rate. Patient is alert, but confused. She denies any chest pain, palpitations, dizziness, diaphoresis, or nausea/vomiting. PAST MEDICAL HISTORY Past Medical History Cardiovascular: HTN, AFIB Pulmonary: No pertinent hx CENTRAL NERVOUS SYSTEM: Seizure GI: No pertinent hx Heme/Onc: DVT Hepatobiliary: No pertinent hx Psych: No pertinent hx Musculoskeletal: Osteoarthritis Rheumatologic: No pertinent hx Infectious disease: No pertinent hx ENT: No pertinent hx Renal/: Other (hyponatremia) Endocrine: No pertinent hx Dermatology: No pertinent hx PAST SURGICAL HISTORY Past Surgical History No pertinent history FAMILY HISTORY Family History Coronary Artery Disease (mother) SOCIAL HISTORY Social History Smoke: Quit ALCOHOL: none Drugs: None CURRENT MEDICATIONS CURRENT MEDICATIONS Current Medications Medications (Trade) Dose Ordered Sig/Melodie Route PRN Reason Start Time Stop Time Status Last Admin Dose Admin Folic Acid (Folic Acid) 1 mg HS PO 06/02/20 21:00 06/02/20 20:43 Lisinopril (Prinivil) 20 mg DAILY PO 06/03/20 09:00 06/03/20 08:42 Polyethylene Glycol (miraLAX PACKET) 17 gm DAILY PO 06/03/20 09:00 06/03/20 08:42 Senna/Docusate Sodium (Senna Plus) 1 tab BID PO 06/02/20 21:00 06/03/20 08:42 Oxybutynin Chloride (Ditropan) 5 mg [id number] PO 06/02/20 21:00 06/03/20 08:42 Phenytoin Sodium (Dilantin) 300 mg HS PO 06/02/20 21:00 06/02/20 20:43 Diltiazem HCl (Cardizem) 30 mg Q8HRS PO 06/02/20 16:00 06/03/20 05:58 Ceftriaxone Sodium (Rocephin) 1 gm Q24H IVP 06/02/20 17:00 06/02/20 17:02 ALLERGIES ALLERGIES: Coded Allergies: No Known Drug Allergies (Unverified , 06/01/19) ROS Review of System 14 point ROS conducted with pertinent positives noted above in HPI, although limited due to confusion. PHYSICAL EXAM General: Alert, Cooperative, No acute distress HEENT: Atraumatic, Mucous membr. moist/pink Lungs: Clear to auscultation Heart: Other (IRRR; tele AFIB- rate controlled ) Abdomen: Soft, No tenderness Extremities: No edema, Normal pulses Neuro: Normal speech, Sensation intact Psych/Mental Status: Mood NL, Other (confused ) MUSCULOSKELETAL: Osteoarthritic changes both hands VITALS/I&O VITALS/I&O: Vital Signs Date Time Temp Pulse Resp B/P (MAP) Pulse Ox O2 Delivery O2 Flow Rate FiO2 06/03/20 08:42 94 124/64 06/03/20 08:00 Room Air 06/03/20 04:00 98.4 20 94 98.4 I & O 06/02/20 06/02/20 06/03/20 15:00 23:00 07:00 Intake Total 50 ml 100 ml Output Total 1565 ml 735 ml 475 ml Balance -1515 ml -635 ml -475 ml LABS Lab: Laboratory Tests Test 06/02/20 12:55 06/03/20 04:20 06/03/20 04:25 Urine Collection Type Unknown Urine Color Yellow Urine Clarity Clear Urine pH 7.5 (<5.0-8.0) Urine Specific [place] <=1.005 (1.000-1.030) Urine Protein Negative mg/dL (NEG-TRACE) Urine Glucose (UA) Negative mg/dL (NEG) Urine Ketones (Stick) Negative mg/dL (NEG) Urine Blood Small (NEG) Urine Nitrite Negative (NEG) Urine Bilirubin Negative (NEG) Urine Urobilinogen Dipstick 0.2 mg/dL (0.2 mg/dL) Urine Leukocyte Esterase Moderate (NEG) Urine RBC 3-5 /HPF (0-2) Urine WBC 5-10 /HPF (0-4) Urine Squamous Epithelial Cells Occ /LPF Urine Bacteria Few /HPF (0-FEW) Prothrombin Time 16.0 SEC (11.7-14.0) H Prothrombin Time INR 1.3 (0.8-1.1) H Sodium Level 130 mmol/L (136-145) L Potassium Level 4.2 mmol/L (3.5-5.1) Chloride Level 96 mmol/L (98-107) L Carbon Dioxide Level 26 mmol/L (21-32) Anion Gap 8 (6-14) Blood Urea Nitrogen 9 mg/dL (7-20) Creatinine 0.7 mg/dL (0.6-1.0) Estimated GFR (Cockcroft-Gault) 79.9 Glucose Level 83 mg/dL (70-99) Calcium Level 8.4 mg/dL (8.5-10.1) L C-Reactive Protein, Quantitative 98.4 mg/L (0-3.3) H Thyroid Stimulating Hormone (TSH) 0.518 uIU/mL (0.358-3.74) Phenytoin (Dilantin) Level 28.5 mcg/mL (10.0-20.0) H Phenytoin Last Dose Date 06/01/20 Phenytoin Last Dose Time 0700 White Blood Count 7.2 x10^3/uL (4.0-11.0) Red Blood Count 3.48 x10^6/uL (3.50-5.40) L Hemoglobin 11.7 g/dL (12.0-15.5) L Hematocrit 33.7 % (36.0-47.0) L Mean Corpuscular Volume 97 fL (79-100) Mean Corpuscular Hemoglobin 34 pg (25-35) Mean Corpuscular Hemoglobin Concent 35 g/dL (31-37) Red Cell Distribution Width 13.8 % (11.5-14.5) Platelet Count 214 x10^3/uL (140-400) Neutrophils (%) (Auto) 62 % (31-73) Lymphocytes (%) (Auto) 20 % (24-48) L Monocytes (%) (Auto) 14 % (0-9) H Eosinophils (%) (Auto) 3 % (0-3) Basophils (%) (Auto) 1 % (0-3) Neutrophils # (Auto) 4.5 x10^3/uL (1.8-7.7) Lymphocytes # (Auto) 1.4 x10^3/uL (1.0-4.8) Monocytes # (Auto) 1.0 x10^3/uL (0.0-1.1) Eosinophils # (Auto) 0.2 x10^3/uL (0.0-0.7) Basophils # (Auto) 0.0 x10^3/uL (0.0-0.2) Laboratory Tests 06/03/20 04:25 Laboratory Tests 06/03/20 04:20 ASSESSMENT/PLAN ASSESSMENT/PLAN 1. Encephalopathy; CT head with hemorrhage versus artifact. MRI without acute infarct 2. AFIB; rate controlled on Cardizem. 3. Hx of seizure and on Dilantin 4. Ataxia/movement disorder with multiple falls 5. Hyponatremia, chronic 6. Hypertension; controlled 7. H/o DVT; on warfarin. INR 2.9 upon arrival. s/p vit K with concerns for hemorrhage. 8. UTI Recommendations Continue Cardizem for rate control Not a candidate for OAC. Was on OAC due to DVT Consider for KATHLEEN closure device Supportive care Follow neuro DUNIA Durand APRN Jun 03, 2020 09:22
[2020-06-03] MEDS: FAMOTIDINE 20 MG TABLET. PO SCH (12:01)
--- NOTE | 2020-06-03 15:04 | PDOC ---
PROGRESS NOTES Assessment 1. Encephalopathy-this is multifactorial from urinary tract infection and Dilantin toxicity. I did not see evidence of intracranial hemorrhage on the MRI but I await the radiologic interpretation. The recent falls may be due to Dilantin toxicity. 2. Dilantin toxicity 3. Hyponatremia to 130. This is likely not low enough to contribute much to the encephalopathy. 4. 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 She denies any famil y history of Genie's chorea. Plan 1. I will hold Dilantin and recheck blood levels until in the therapeutic range. This can be restarted at 200 mg at night. We will need to follow the level as sometimes 200 mg is subtherapeutic and 300 mg is toxic. It does come and sustained release 30 mg capsules as well. 2. She can work with physical therapy. Hopefully when she is not toxic on Dilantin the balance will improve as well hopefully the abnormal movements. 3. The MRI did did reveal evidence of left maxillary sinus mucosal thickening as well as sphenoid sinus mucosal thickening. There may be some underlying sinus infection but this would likely be addressed by her current antibiotics that she is receiving for UTI. Subjective I am not in any pain. Objective Vital Signs Date Time Temp Pulse Resp B/P (MAP) Pulse Ox O2 Delivery O2 Flow Rate FiO2 06/03/20 12:04 77 117/56 06/03/20 12:00 98.5 20 99 Room Air 98.5 Intake and Output 06/03/20 06:59 Intake Total 150 ml Output Total 2725 ml Balance -2575 ml Intake Oral 150 ml Output Urine Total 2725 ml PHYSICAL EXAM She was alert, awake and cooperative. Speech was interrupted and not quite fluent. She was able to follow commands and answer most questions. She knew she was in a hospital but could not recall the name. I reoriented her and asked her several minutes later and she did recall the name of the hospital. She was not oriented to month but was oriented to year. Examination of the cranial nerves revealed visual harley were full to confrontation. Extraocular movements were intact. The eyes were conjugate. Pursuit movements were smooth and saccadic eye movements were without dysmetria. Pupils were 3 mm. Facial sensation was intact. The muscles of mastication and facial expression were powerful symmetrically. Hearing was intact to finger rub. The palate arch symmetrically and the tongue was midline. Muscle bulk and tone was normal. She was able to suppress the extra movement. Power was full and symmetric. Coordination testing with rapid finger tapping and rapid alternating movements as well as [id number] was fairly well performed. Sensory exam was intact to cold thermal, light touch and vibration. Gait was not testable. Review of Relevant I have reviewed the following items andie (where applicable) has been applied. Labs Laboratory Tests Test 06/02/20 12:55 06/03/20 04:20 06/03/20 04:25 Urine Collection Type Unknown Urine Color Yellow Urine Clarity Clear Urine pH 7.5 (<5.0-8.0) Urine Specific [place] <=1.005 (1.000-1.030) Urine Protein Negative mg/dL (NEG-TRACE) Urine Glucose (UA) Negative mg/dL (NEG) Urine Ketones (Stick) Negative mg/dL (NEG) Urine Blood Small (NEG) Urine Nitrite Negative (NEG) Urine Bilirubin Negative (NEG) Urine Urobilinogen Dipstick 0.2 mg/dL (0.2 mg/dL) Urine Leukocyte Esterase Moderate (NEG) Urine RBC 3-5 /HPF (0-2) Urine WBC 5-10 /HPF (0-4) Urine Squamous Epithelial Cells Occ /LPF Urine Bacteria Few /HPF (0-FEW) Prothrombin Time 16.0 SEC (11.7-14.0) Prothromb Time International Ratio 1.3 (0.8-1.1) Sodium Level 130 mmol/L (136-145) Potassium Level 4.2 mmol/L (3.5-5.1) Chloride Level 96 mmol/L (98-107) Carbon Dioxide Level 26 mmol/L (21-32) Anion Gap 8 (6-14) Blood Urea Nitrogen 9 mg/dL (7-20) Creatinine 0.7 mg/dL (0.6-1.0) Estimated GFR (Cockcroft-Gault) 79.9 Glucose Level 83 mg/dL (70-99) Calcium Level 8.4 mg/dL (8.5-10.1) C-Reactive Protein, Quantitative 98.4 mg/L (0-3.3) Vitamin B12 Level 280 pg/mL (247-911) Thyroid Stimulating Hormone (TSH) 0.518 uIU/mL (0.358-3.74) Phenytoin (Dilantin) Level 28.5 mcg/mL (10.0-20.0) Phenytoin Last Dose Date 06/01/20 Phenytoin Last Dose Time 0700 White Blood Count 7.2 x10^3/uL (4.0-11.0) Red Blood Count 3.48 x10^6/uL (3.50-5.40) Hemoglobin 11.7 g/dL (12.0-15.5) Hematocrit 33.7 % (36.0-47.0) Mean Corpuscular Volume 97 fL (79-100) Mean Corpuscular Hemoglobin 34 pg (25-35) Mean Corpuscular Hemoglobin Concent 35 g/dL (31-37) Red Cell Distribution Width 13.8 % (11.5-14.5) Platelet Count 214 x10^3/uL (140-400) Neutrophils (%) (Auto) 62 % (31-73) Lymphocytes (%) (Auto) 20 % (24-48) Monocytes (%) (Auto) 14 % (0-9) Eosinophils (%) (Auto) 3 % (0-3) Basophils (%) (Auto) 1 % (0-3) Neutrophils # (Auto) 4.5 x10^3/uL (1.8-7.7) Lymphocytes # (Auto) 1.4 x10^3/uL (1.0-4.8) Monocytes # (Auto) 1.0 x10^3/uL (0.0-1.1) Eosinophils # (Auto) 0.2 x10^3/uL (0.0-0.7) Basophils # (Auto) 0.0 x10^3/uL (0.0-0.2) Laboratory Tests Test 06/03/20 04:20 06/03/20 04:25 Prothrombin Time 16.0 SEC (11.7-14.0) Prothromb Time International Ratio 1.3 (0.8-1.1) Sodium Level 130 mmol/L (136-145) Potassium Level 4.2 mmol/L (3.5-5.1) Chloride Level 96 mmol/L (98-107) Carbon Dioxide Level 26 mmol/L (21-32) Anion Gap 8 (6-14) Blood Urea Nitrogen 9 mg/dL (7-20) Creatinine 0.7 mg/dL (0.6-1.0) Estimated GFR (Cockcroft-Gault) 79.9 Glucose Level 83 mg/dL (70-99) Calcium Level 8.4 mg/dL (8.5-10.1) C-Reactive Protein, Quantitative 98.4 mg/L (0-3.3) Vitamin B12 Level 280 pg/mL (247-911) Thyroid Stimulating Hormone (TSH) 0.518 uIU/mL (0.358-3.74) Phenytoin (Dilantin) Level 28.5 mcg/mL (10.0-20.0) Phenytoin Last Dose Date 06/01/20 Phenytoin Last Dose Time 0700 White Blood Count 7.2 x10^3/uL (4.0-11.0) Red Blood Count 3.48 x10^6/uL (3.50-5.40) Hemoglobin 11.7 g/dL (12.0-15.5) Hematocrit 33.7 % (36.0-47.0) Mean Corpuscular Volume 97 fL (79-100) Mean Corpuscular Hemoglobin 34 pg (25-35) Mean Corpuscular Hemoglobin Concent 35 g/dL (31-37) Red Cell Distribution Width 13.8 % (11.5-14.5) Platelet Count 214 x10^3/uL (140-400) Neutrophils (%) (Auto) 62 % (31-73) Lymphocytes (%) (Auto) 20 % (24-48) Monocytes (%) (Auto) 14 % (0-9) Eosinophils (%) (Auto) 3 % (0-3) Basophils (%) (Auto) 1 % (0-3) Neutrophils # (Auto) 4.5 x10^3/uL (1.8-7.7) Lymphocytes # (Auto) 1.4 x10^3/uL (1.0-4.8) Monocytes # (Auto) 1.0 x10^3/uL (0.0-1.1) Eosinophils # (Auto) 0.2 x10^3/uL (0.0-0.7) Basophils # (Auto) 0.0 x10^3/uL (0.0-0.2) Medications Current Medications Folic Acid (Folic Acid) 1 mg HS PO Last administered on 06/02/20at 20:43; Start 06/02/20 at 21:00 Lisinopril (Prinivil) 20 mg DAILY PO Last administered on 06/03/20at 08:42; Start 06/03/20 at 09:00 Ondansetron HCl (Zofran Odt) 4 mg PRN Q4HRS PRN PO nausea/vomiting; Start 06/02/20 at 16:00 Polyethylene Glycol (miraLAX PACKET) 17 gm DAILY PO Last administered on 06/03/20at 08:42; Start 06/03/20 at 09:00 Senna/Docusate Sodium (Senna Plus) 1 tab BID PO Last administered on 06/03/20at 08:42; Start 06/02/20 at 21:00 Oxybutynin Chloride (Ditropan) 5 mg [id number] PO Last administered on 06/03/20at 08:42; Start 06/02/20 at 21:00 Phenytoin Sodium (Dilantin) 300 mg HS PO Last administered on 06/02/20at 20:43; Start 06/02/20 at 21:00; Stop 06/03/20 at 14:07; Status DC Diltiazem HCl (Cardizem) 30 mg Q8HRS PO Last administered on 06/03/20at 12:04; Start 06/02/20 at 16:00 Ondansetron HCl (Zofran) 4 mg PRN Q4HRS PRN IV NAUSEA/VOMITING; Start 06/02/20 at 16:45 Acetaminophen (Tylenol) 650 mg PRN Q4HRS PRN PO TEMP OVER 100.4F OR MILD PAIN; Start 06/02/20 at 16:45 Ceftriaxone Sodium (Rocephin) 1 gm Q24H IVP Last administered on 06/02/20at 17:02; Start 06/02/20 at 17:00 Famotidine (Pepcid) 20 mg DAILY PO Last administered on 06/03/20at 12:01; Start 06/03/20 at 10:00 Lactobacillus Rhamnosus (Culturelle) 1 cap BID PO ; Start 06/03/20 at 21:00 Active Scripts Active Ondansetron Odt (Ondansetron) 4 Mg Tab.rapdis 1 Tab PO PRN Q6-8HRS 30 Days Miralax (Polyethylene Glycol 3350) 17 Gm Powd.pack 1 Packet PO DAILY Hydrocodone-Apap 5-325 (Hydrocodone Bit/Acetaminophen) 1 Tab Tablet 1 Tab PO Q4H PRN 30 Days Senna-S Laxative Tablet (Sennosides/Docusate Sodium) 1 Each Tablet 1 Each PO BID 30 Days Reported Diltiazem 24Hr Cd (Diltiazem HCl) 240 Mg Cap.er.24h 30 Mg PO TID Warfarin Sodium 1 Mg Tablet 0.5 Mg PO DAILY Phenytoin Sodium Extended 300 Mg Capsule 1 Cap PO QHS 30 Days Oxybutynin Chloride Er (Oxybutynin Chloride) 5 Mg Tab.er.24 1 Tab PO DAILY Warfarin Sodium 3 Mg Tablet 3 Mg PO DAILY Lisinopril 20 Mg Tablet 20 Mg PO DAILY Folic Acid 1 Mg Tablet 1 Tab PO HS Vitals/I & O Vital Sign - Last 24 Hours 06/02/20 06/02/20 06/02/20 06/02/20 16:00 16:00 16:53 17:00 Temp 98.6 98.6 Pulse 80 80 88 Resp 21 33 B/P (MAP) 141/63 (89) 141/63 133/73 (93) Pulse Ox 95 94 O2 Delivery Room Air Room Air Room Air 06/02/20 06/02/20 06/02/20 06/02/20 18:00 19:00 20:00 20:00 Temp 98.3 98.3 Pulse 76 76 82 Resp 19 19 20 B/P (MAP) 120/63 (82) 116/52 (73) 135/61 (85) Pulse Ox 96 95 95 O2 Delivery Room Air Room Air Room Air Room Air 06/02/20 06/02/20 06/03/20 06/03/20 21:00 22:01 00:00 04:00 Temp 98.3 98.4 98.3 98.4 Pulse 76 81 70 86 Resp 18 20 20 B/P (MAP) 147/75 (99) 147/75 116/57 (76) 119/68 (85) Pulse Ox 94 95 94 O2 Delivery Room Air Room Air Room Air 06/03/20 06/03/20 06/03/20 06/03/20 05:58 08:00 08:00 08:42 Temp 98.8 98.8 Pulse 90 83 94 Resp 20 B/P (MAP) 123/56 120/71 (87) 124/64 Pulse Ox 96 O2 Delivery Room Air Room Air 06/03/20 06/03/20 12:00 12:04 Temp 98.5 98.5 Pulse 65 77 Resp 20 B/P (MAP) 117/55 (75) 117/56 Pulse Ox 99 O2 Delivery Room Air Intake and Output 06/02/20 06/02/20 06/03/20 14:59 22:59 06:59 Intake Total 50 ml 100 ml Output Total 1415 ml 765 ml 545 ml Balance -1365 ml -665 ml -545 ml Justicifation of Admission Dx: Justifications for Admission: Justification of Admission Dx: Yes BRANDIE SMART MD Jun 03, 2020 15:04
--- NOTE | 2020-06-03 15:56 | NUR ---
SS following for discharge planning. SS reviewed pt chart and discussed with pt RN. Pt transferred to room 532. Pt is from home with family and is currently on room air. Pt on IV Rocephin. Per report, pt's daughters aid at home. PT/OT recommended [facility] unit. Pt left message for pt's daughter to discuss [facility] unit. COVID19 test pending. Pt has been to [facility] approximately one year ago. SS discussed with Olesya WALKER.
--- NOTE | 2020-06-03 16:18 | PDOC ---
Provider Note Provider Note Patient seen and examined at 1130 Consultation for small subdural hematoma Report of recent falls Neuro intact Posterior right frontal lobe small hemorrhage, versus artifact MRI pending Neurology is following Justicifation of Admission Dx: Justifications for Admission: Justification of Admission Dx: Yes ROCÍO PADRON APRN Jun 03, 2020 16:18
--- NOTE | 2020-06-03 16:20 | NUR ---
SW following. Pt transferred from ICU. Spoke with RN and requested COVID test as one has not been done on pt per chart review and call to CM. Pt has [employer] Medicare and family is interested in [facility]. SW spoke with [facility] and they are full at this time. SW to call family to see about additional referral options that accept pt's insurance.
--- NOTE | 2020-06-03 16:22 | RAD ---
BRAIN W/O CONTRAST Date: 06/03/2020 8:00 AM Indication: Reason: Follow-up right frontal hemorrhage on [facility] head CT today / [facility]. Instructions: / History: Comparison: CT 06/02/2020. MRI 06/02/2019. CT 06/01/2019. CT 07/24/2015. Technique: Multiplanar multisequence MRI of the brain was performed without intravenous contrast using the standard protocol. Findings: No acute infarct. No acute hemorrhage. The ventricles are normal in size and configuration without hydrocephalus. Extensive FLAIR hyperintense signal in the subcortical and periventricular deep white matter, a nonspecific finding, most commonly seen with chronic small vessel ischemic disease. Moderate generalized cerebral volume loss. The scalp and calvarium are normal. The pituitary and sella are normal. No Chiari malformation. The visualized upper cervical spine is normal. The visualized orbits and globes are normal. The visualized paranasal sinuses are clear. The mastoid air cells are clear. Normal flow voids within the vertebral, basilar, and internal carotid arteries indicating patency. IMPRESSION: 1. No focal lesion corresponding to the area of abnormal hyperdensity seen on the prior CT. This region is stable since exam of 06/01/2019, and may represents an area of asymmetric mineralization. 2. No acute infarct, hemorrhage, mass, or hydrocephalus. 3. Extensive chronic small vessel ischemic disease and moderate cerebral volume loss. Electronically signed by: Senthil Watts MD (06/03/2020 4:19 PM) [id number]
--- NOTE | 2020-06-03 16:30 | NUR ---
Patient accidentally removed cheng catheter ambulating. Balloon intact. Patient denies discomfort, no bleeding or trauma observed. Dr. Washington notified. Monitor patient for retention.
[2020-06-03] MEDS: cefTRIAXone IV Push 1 GM VIAL. IVP SCH (18:34)
--- NOTE | 2020-06-03 18:40 | NUR ---
Dr. Keller notified that patient keeps removing quality assurance monitor chassis d/t confusion and gave order to discontinue.
--- NOTE | 2020-06-03 18:50 | CONS ---
DATE OF CONSULTATION: PODIATRIC CONSULTATION REASON FOR CONSULTATION: Painful mycotic nails. REVIEW OF RECORD: This is an 84-year-old female that was admitted for disorientation. She was disoriented and confused when she was at [facility] and was transferred to [place] for ICU admission. She is currently on a regular bed. PAST MEDICAL HISTORY: Atrial fibrillation, hypertension, osteoarthritis. PAST SURGICAL HISTORY: Total hip replacement. CURRENT MEDICATIONS: Reviewed including warfarin sodium 3 mg, lisinopril, folic acid, oxybutynin, phenytoin and diltiazem. ALLERGIES: No known drug allergies. PHYSICAL EXAMINATION: DERMAL: The patient has elongated mycotic nails of all digits. Many of them are sean's horn in presentation. Some of the lesser digits on the left foot seem to have been attempt at debriding but others are all uncared for. Decreased turgor, absence of hair growth. VASCULAR: Pedal pulses are diminished and absent posterior tibial and dorsalis pedis. Capillary filling time is 5 seconds or greater. NEUROLOGIC: The patient appears to have normal sensorium. Does not relate any numbness, burning, tingling. MUSCULOSKELETAL: Noncontributory. No significant bunion or hammertoe deformity. ASSESSMENT: 1. Clinical evidence of painful onychomycosis, onychocryptosis, onycholysis of six nails or greater. 2. Peripheral vascular disease of both lower extremities. 3. Edema, resolving with medication. The skin is getting very wrinkly as her edema is improving. PLAN: Debridement of all mycotic nails performed using double action nail forceps and rotary drill. No hemorrhage occurred. Thank you for the opportunity of taking care of this patient. I am sure that she will feel much more at ease and comfortable in getting ____ shoes. MARYCRUZ HUTTON DPM DR: DAQUAN/zulema JOB#: [id number] / [id number]
--- NOTE | 2020-06-03 20:00 | NUR ---
Covid test from [place] negative. Result placed in chart. Will hold off at this time from repeating another covid swab.
[2020-06-03] MEDS: FOLIC ACID 1 MG TABLET. PO SCH (20:46)
[2020-06-03] MEDS: LACTOBACILLUS RHAMNOSUS GG 1 CAPSULE. PO SCH (20:46)
[2020-06-04 03:00] VITALS: BP 138/69
[2020-06-04 04:56] LABS: PHENY 26.6 mcg/mL (10.0-20.0)
[2020-06-04] MEDS: dilTIAZem HCL 30 MG TABLET PO SCH ×2 (06:00→13:16)
[2020-06-04 07:00] VITALS: BP 129/106
[2020-06-04] MEDS: POLYETHYLENE GLYCOL 3350 17 GM PACKET. PO SCH (07:56)
[2020-06-04] MEDS: FAMOTIDINE 20 MG TABLET. PO SCH (07:56)
[2020-06-04] MEDS: LISINOPRIL 20 MG TABLET PO SCH (07:56)
[2020-06-04] MEDS: SENNOSIDES/DOCUSATE 8.6/50MG TABLET. PO SCH ×2 (07:57→21:04)
[2020-06-04] MEDS: LACTOBACILLUS RHAMNOSUS GG 1 CAPSULE. PO SCH ×2 (07:57→21:04)
[2020-06-04] MEDS: OXYBUTYNIN CHLORIDE 5 MG TABLET PO SCH ×3 (07:57→21:04)
[2020-06-04 11:00] VITALS: BP 131/68
--- NOTE | 2020-06-04 11:36 | PDOC ---
[employer] PROGRESS NOTE Chief Complaint Chief Complaint Small HEALTH SAFETY MANAGER hemorrhage Acute encephalopathy Hyponatremia Atrial fibrillation of meds - on diltiazem q 8hrs and warfarin Seizures -elevated dilantin levels Ex-smoker - stable Onychogryphosis History of Present Illness History of Present Illness 06/04/2020 Patient seen and examined She is intermittently confused And appears to possibly have a movement disorder? Discussed with RN Chart reviewed Dilantin level is down to 20 84yo F w/ PMHx afib, seizures, ex-smoker who presented to [facility] ED with worsening confusion over the last 3 days. Noted with disorientation and slurred speech but no focal neurologic deficits. Her daughter notes she is normally oriented and speaks fluently but over the last several days she has had worsening confusion and has unsteady gait. Patient's not been able to feed herself or regularly take her medications. CT head with 6.9 mm focus of hyperdensity at the base of the sulcus in the posterior right frontal lobe consistent with a small hemorrhage. CXR with cardiomegaly. EKG upon my review appears to be rate controlled A. fib in the 80s with no ST segment changes. Labs significant for NA 129, K3.8, BUN 9, CR 0.8, platelets 114, INR 2.9, WBC 9, Hb 11.8, platelets 212. Due to her new abnormality on CT head and lack of neurosurgery treasury management sales consultant at [facility] they contacted for transfer to [facility], accepted her for ICU admission. 06/03/2020 Patient seen and examined bedside. She it tolerating diet without choking spells. She has no obvious facial deficits. no pronator drift. Vitals/I&O Vitals/I&O: Vital Signs Date Time Temp Pulse Resp B/P (MAP) Pulse Ox O2 Delivery O2 Flow Rate FiO2 06/04/20 08:00 Room Air 06/04/20 07:56 88 138/69 06/04/20 07:00 98.0 20 94 98.0 I & O 06/03/20 06/03/20 06/04/20 15:00 23:00 07:00 Intake Total 700 ml 200 ml 400 ml Output Total 315 ml Balance 385 ml 200 ml 400 ml Physical Exam Physical Exam: Alert, oriented, but intermittently confused EOMI, sclera non-icteric Neck supple RRR, no murmur CTAB, no wheezes, crackles or rhonchi Soft, NT, ND, normal bowel sounds, no rebound, guarding. Negative Zheng's sign. No edema, cyanosis. Normal capillary refill. Calm, cooperative, mood/affect within normal limits General: Alert, Cooperative, No acute distress Heart: Other (IRRR; tele AFIB- rate controlled ) Abdomen: Soft, No tenderness Extremities: No edema, Normal pulses Skin: No rashes, No breakdown, No significant lesion, Other (Poor nail care on feet) Labs Labs: Laboratory Tests Test 06/04/20 03:53 Phenytoin (Dilantin) Level 26.6 mcg/mL (10.0-20.0) Phenytoin Last Dose Date Unk Phenytoin Last Dose Time Unk Assessment and Plan Assessmemt and Plan Acute encephalopathy - likely metabolic from hyponatremia, possibly post-ictal, also with UTI and possible small intracranial hemorrhage Falls - gait testing with PT Hyponatremia - likely nutritional, will have shear scrapman to see Small intracranial hemorrhage - possibly from fall, will monitor, hold warfarin. Consult neurosurgery. 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 I am concerned for home care based on this finding. Plan PT OT Home meds Await further neurology input Hope to resume Dilantin soon if okay with neurology DVT prophylaxis Full code I think she should go to residential but she kind of refuses Discussed with Comment Review of Relevant I have reviewed the following items andie (where applicable) has been applied. Medications: Current Medications Medications (Trade) Dose Ordered Sig/Melodie Route PRN Reason Start Time Stop Time Status Last Admin Dose Admin Lactobacillus Rhamnosus (Culturelle) 1 cap BID PO 06/03/20 21:00 06/04/20 07:57 Justicifation of Admission Dx: Justifications for Admission: Justification of Admission Dx: Yes MARGARITA HUMPHREY III DO Jun 04, 2020 11:36
--- NOTE | 2020-06-04 14:12 | PDOC ---
DUNIA TAM VENDING ROUTE DRIVER 06/04/20 1412: CARDIO Progress Notes Date and Time Date of Service 06/04/20 Time of Evaluation 1245 Subjective Subjective: No Chest Pain, No shortness of breath Vitals Vitals Vital Signs Date Time Temp Pulse Resp B/P (MAP) Pulse Ox O2 Delivery O2 Flow Rate FiO2 06/04/20 13:16 65 131/68 06/04/20 11:00 97.4 18 96 Room Air 97.4 Weight Weight [ ] Input and Output Intake and Output Intake and Output 06/04/20 07:00 Intake Total 1300 ml Output Total 315 ml Balance 985 ml Intake Oral 1300 ml Output Urine Total 315 ml # Voids 5 Laboratory Labs Laboratory Tests Test 06/04/20 03:53 Phenytoin (Dilantin) Level 26.6 mcg/mL (10.0-20.0) Phenytoin Last Dose Date Unk Phenytoin Last Dose Time Unk Microbiology Micro Microbiology 06/02/20 Urine Culture - Final, Complete Physical Exam HEENT: Neck Supple W Full Motion Chest: Symmetric LUNGS: Clear to Auscultation Heart: S1S2, irregularly irregular Abdomen: Soft N/T Extremities: No Edema Neurology: alert, follow commands Assessment Assessment 1. Encephalopathy; CT head with hemorrhage versus artifact. MRI without acute infarct. Most probably due to UTI and elevated Dilantin level 2. AFIB; rate controlled on Cardizem. 3. Hx of seizure and on Dilantin 4. Ataxia/movement disorder with multiple falls 5. Hyponatremia, chronic 6. Hypertension; controlled 7. H/o DVT; on warfarin. INR 2.9 upon arrival. s/p vit K with concerns for hemorrhage. 8. UTI Recommendations Will convert Cardizem TID to metoprolol to simply dosing. Poor long-term candidate for OAC given recurrent falls. Was on OAC due to DVT Consider outpatient referral for KATHLEEN closure device Supportive care Follow up in our office with Dr. Boone as scheduled Justicifation of Admission Dx: Justifications for Admission: Justification of Admission Dx: Yes MANOHAR BOONE MD 06/04/20 1632: CARDIO Progress Notes Assessment Assessment Patient seen and examined I agree with our nurse practitioners assessment and plan. Encephalopathy; CT head with hemorrhage versus artifact. MRI without acute infarct. Followed by neurology. AFIB; rate controlled on Cardizem. Hx of seizure and on Dilantin H/o DVT; on warfarin. INR 2.9 upon arrival. s/p vit K with concerns for hemorrhage. DUNIA TAM APRN Jun 04, 2020 14:12 MANOHAR BOONE MD Jun 04, 2020 16:32
[2020-06-04] MEDS: METOPROLOL SUCC 24HR ER 25 MG TAB.ER.24H. PO SCH (14:15)
[2020-06-04 15:00] VITALS: BP 92/65
--- NOTE | 2020-06-04 15:50 | NUR ---
SW following. Spoke with RN and reviewed chart. Spoke with pt and pt's dtr Mary Jane ([phone]). AARON completed Patient Choice of Vendor form. AARON phoned and faxed SNU referral to [facility], , (fax). AARON requested that admissions submit for authorization if they can accept pt clinically. Pt also interested in [facility] and [place] (take pt's insurance) but both are full and not accepting new patients at this time. Pt on IV Rocephin and room air. AARON to continue following. Addendum: 06/04/20 at 1646 by BETTINA WALKER Pt accepted clinically at [facility] per Elyse. Elyse to submit for insurance authorization today. 06/04/2020.
[2020-06-04] MEDS: cefTRIAXone IV Push 1 GM VIAL. IVP SCH (16:33)
--- NOTE | 2020-06-04 18:24 | PDOC ---
PROGRESS NOTES Assessment 1. Dilantin toxicity which likely contributes to the abnormal movement and falls. She was still toxic when the level was measured today. 2. There was concern for hemorrhage on the CT scan of the head. An MRI of the brain however confirmed this was not hemorrhage but likely calcification. 3. Encephalopathy likely from Dilantin toxicity and urinary tract infection. The sodium is not low enough that it would typically contribute to neurologic s ymptoms. Plan 1. We will recheck Dilantin level in the morning. Continue to hold Dilantin until no longer toxic. When resume Dilantin we will do so at 200 mg/day. 2. She will need to be stable with her walking before discharge. The encephalopathy appears to be improving. 3. Likely underlying dementia. This could be further assessed as an outpatient. 4. Urinary tract infection-continue treatment until resolved. Subjective I feel okay. I think I have had these abnormal movements since I been on Dilantin. Objective Vital Signs Date Time Temp Pulse Resp B/P (MAP) Pulse Ox O2 Delivery O2 Flow Rate FiO2 06/04/20 15:00 98.0 64 18 92/65 (74) 93 Room Air 98.0 Intake and Output 06/04/20 07:00 Intake Total 1300 ml Output Total 315 ml Balance 985 ml Intake Oral 1300 ml Output Urine Total 315 ml # Voids 5 PHYSICAL EXAM She was alert, awake and cooperative. Speech was difficult to understand at times. She was generally responsive to questions and followed commands. Visual harley were intact. Extraocular movements were intact. I did not see any nystagmus. Face was symmetric. Tongue was midline. Muscle bulk was diminished. Tone was normal. There was no drift. Power was fairly full and symmetric. Coordination was intact with [id number]. Sensation was intact to light touch. Gait was not testable. Review of Relevant I have reviewed the following items andie (where applicable) has been applied. Labs Laboratory Tests Test 06/03/20 04:20 06/03/20 04:25 06/04/20 03:53 Prothrombin Time 16.0 SEC (11.7-14.0) Prothromb Time International Ratio 1.3 (0.8-1.1) Sodium Level 130 mmol/L (136-145) Potassium Level 4.2 mmol/L (3.5-5.1) Chloride Level 96 mmol/L (98-107) Carbon Dioxide Level 26 mmol/L (21-32) Anion Gap 8 (6-14) Blood Urea Nitrogen 9 mg/dL (7-20) Creatinine 0.7 mg/dL (0.6-1.0) Estimated GFR (Cockcroft-Gault) 79.9 Glucose Level 83 mg/dL (70-99) Calcium Level 8.4 mg/dL (8.5-10.1) C-Reactive Protein, Quantitative 98.4 mg/L (0-3.3) Vitamin B12 Level 280 pg/mL (247-911) Thyroid Stimulating Hormone (TSH) 0.518 uIU/mL (0.358-3.74) Phenytoin (Dilantin) Level 28.5 mcg/mL (10.0-20.0) 26.6 mcg/mL (10.0-20.0) Phenytoin Last Dose Date 06/01/20 Unk Phenytoin Last Dose Time 0700 Unk White Blood Count 7.2 x10^3/uL (4.0-11.0) Red Blood Count 3.48 x10^6/uL (3.50-5.40) Hemoglobin 11.7 g/dL (12.0-15.5) Hematocrit 33.7 % (36.0-47.0) Mean Corpuscular Volume 97 fL (79-100) Mean Corpuscular Hemoglobin 34 pg (25-35) Mean Corpuscular Hemoglobin Concent 35 g/dL (31-37) Red Cell Distribution Width 13.8 % (11.5-14.5) Platelet Count 214 x10^3/uL (140-400) Neutrophils (%) (Auto) 62 % (31-73) Lymphocytes (%) (Auto) 20 % (24-48) Monocytes (%) (Auto) 14 % (0-9) Eosinophils (%) (Auto) 3 % (0-3) Basophils (%) (Auto) 1 % (0-3) Neutrophils # (Auto) 4.5 x10^3/uL (1.8-7.7) Lymphocytes # (Auto) 1.4 x10^3/uL (1.0-4.8) Monocytes # (Auto) 1.0 x10^3/uL (0.0-1.1) Eosinophils # (Auto) 0.2 x10^3/uL (0.0-0.7) Basophils # (Auto) 0.0 x10^3/uL (0.0-0.2) Laboratory Tests Test 06/04/20 03:53 Phenytoin (Dilantin) Level 26.6 mcg/mL (10.0-20.0) Phenytoin Last Dose Date Unk Phenytoin Last Dose Time Unk Microbiology 06/02/20 Urine Culture - Final, Complete Medications Current Medications Folic Acid (Folic Acid) 1 mg HS PO Last administered on 06/03/20at 20:46; Start 06/02/20 at 21:00 Lisinopril (Prinivil) 20 mg DAILY PO Last administered on 06/04/20at 07:56; Start 06/03/20 at 09:00 Ondansetron HCl (Zofran Odt) 4 mg PRN Q4HRS PRN PO nausea/vomiting; Start 06/02/20 at 16:00 Polyethylene Glycol (miraLAX PACKET) 17 gm DAILY PO Last administered on 06/04/20at 07:56; Start 06/03/20 at 09:00 Senna/Docusate Sodium (Senna Plus) 1 tab BID PO Last administered on 06/04/20at 07:57; Start 06/02/20 at 21:00 Oxybutynin Chloride (Ditropan) 5 mg [id number] PO Last administered on 06/04/20at 13:15; Start 06/02/20 at 21:00 Phenytoin Sodium (Dilantin) 300 mg HS PO Last administered on 06/02/20at 20:43; Start 06/02/20 at 21:00; Stop 06/03/20 at 14:07; Status DC Diltiazem HCl (Cardizem) 30 mg Q8HRS PO Last administered on 06/04/20at 13:16; Start 06/02/20 at 16:00; Stop 06/04/20 at 14:08; Status DC Ondansetron HCl (Zofran) 4 mg PRN Q4HRS PRN IV NAUSEA/VOMITING; Start 06/02/20 at 16:45 Acetaminophen (Tylenol) 650 mg PRN Q4HRS PRN PO TEMP OVER 100.4F OR MILD PAIN; Start 06/02/20 at 16:45 Ceftriaxone Sodium (Rocephin) 1 gm Q24H IVP Last administered on 06/04/20at 16:33; Start 06/02/20 at 17:00 Famotidine (Pepcid) 20 mg DAILY PO Last administered on 06/04/20at 07:56; Start 06/03/20 at 10:00 Lactobacillus Rhamnosus (Culturelle) 1 cap BID PO Last administered on 06/04/20at 07:57; Start 06/03/20 at 21:00 Metoprolol Succinate (Toprol Xl) 25 mg DAILY PO ; Start 06/04/20 at 14:15 Active Scripts Active Ondansetron Odt (Ondansetron) 4 Mg Tab.rapdis 1 Tab PO PRN Q6-8HRS 30 Days Miralax (Polyethylene Glycol 3350) 17 Gm Powd.pack 1 Packet PO DAILY Hydrocodone-Apap 5-325 (Hydrocodone Bit/Acetaminophen) 1 Tab Tablet 1 Tab PO Q4H PRN 30 Days Senna-S Laxative Tablet (Sennosides/Docusate Sodium) 1 Each Tablet 1 Each PO BID 30 Days Reported Diltiazem 24Hr Cd (Diltiazem HCl) 240 Mg Cap.er.24h 30 Mg PO TID Warfarin Sodium 1 Mg Tablet 0.5 Mg PO DAILY Phenytoin Sodium Extended 300 Mg Capsule 1 Cap PO QHS 30 Days Oxybutynin Chloride Er (Oxybutynin Chloride) 5 Mg Tab.er.24 1 Tab PO DAILY Warfarin Sodium 3 Mg Tablet 3 Mg PO DAILY Lisinopril 20 Mg Tablet 20 Mg PO DAILY Folic Acid 1 Mg Tablet 1 Tab PO HS Vitals/I & O Vital Sign - Last 24 Hours 06/03/20 06/03/20 06/03/20 06/03/20 19:00 19:05 20:46 23:00 Temp 97.7 98.3 97.7 98.3 Pulse 76 76 86 Resp 18 20 B/P (MAP) 102/66 (78) 102/66 143/67 (92) Pulse Ox 96 95 O2 Delivery Room Air Room Air Room Air 06/04/20 06/04/20 06/04/20 06/04/20 03:00 06:00 07:00 07:56 Temp 98.1 98.0 98.1 98.0 Pulse 86 88 58 88 Resp 20 20 B/P (MAP) 138/69 (92) 138/69 129/106 (114) 138/69 Pulse Ox 93 94 O2 Delivery Room Air Room Air 06/04/20 06/04/20 06/04/20 06/04/20 08:00 11:00 13:16 14:15 Temp 97.4 97.4 Pulse 65 65 64 Resp 18 B/P (MAP) 131/68 (89) 131/68 92/65 Pulse Ox 96 O2 Delivery Room Air Room Air 06/04/20 15:00 Temp 98.0 98.0 Pulse 64 Resp 18 B/P (MAP) 92/65 (74) Pulse Ox 93 O2 Delivery Room Air Intake and Output 06/03/20 06/03/20 06/04/20 15:00 23:00 07:00 Intake Total 700 ml 200 ml 400 ml Output Total 315 ml Balance 385 ml 200 ml 400 ml Justicifation of Admission Dx: Justifications for Admission: Justification of Admission Dx: Yes BRANDIE SMART MD Jun 04, 2020 18:24
[2020-06-04 19:00] VITALS: BP 134/75
[2020-06-04] MEDS: FOLIC ACID 1 MG TABLET. PO SCH (21:04)
[2020-06-04 23:00] VITALS: BP 141/78
[2020-06-05 03:00] VITALS: BP 134/69
[2020-06-05 05:46] LABS: PHENY 19.6 mcg/mL (10.0-20.0)
[2020-06-05 07:56] VITALS: BP 140/76
[2020-06-05] MEDS: LACTOBACILLUS RHAMNOSUS GG 1 CAPSULE. PO SCH (08:20)
[2020-06-05] MEDS: LISINOPRIL 20 MG TABLET PO SCH (08:21)
[2020-06-05] MEDS: OXYBUTYNIN CHLORIDE 5 MG TABLET PO SCH ×2 (08:21→14:01)
[2020-06-05] MEDS: FAMOTIDINE 20 MG TABLET. PO SCH (08:21)
[2020-06-05] MEDS: SENNOSIDES/DOCUSATE 8.6/50MG TABLET. PO SCH (08:21)
[2020-06-05] MEDS: POLYETHYLENE GLYCOL 3350 17 GM PACKET. PO SCH (08:21)
[2020-06-05] MEDS: METOPROLOL SUCC 24HR ER 25 MG TAB.ER.24H. PO SCH (08:21)
--- NOTE | 2020-06-05 09:00 | SNU/HH DC ---
DISCHARGE ORDERS DISCHARGE INFORMATION: CONDITION ON DISCHARGE: Stable CODE STATUS: Code Status: Full HALF-WAY: SNF STAY <30 DAYS: Yes HOSPICE: HOSPICE: No HOSPICE EVAL & TREAT: No LTAC: ADMIT TO LTAC: No POST DISCHARGE ORDERS: ACTIVITY ORDERS: Activity as tolerated DIET AFTER DISCHARGE: Cardiac TREATMENT/EQUIPMENT ORDERS: Physical Therapy For: Evalulation/Treatment Occupational Therapy For: Evaluation/Treatment DISCHARGE MEDICATIONS: Home Meds Active Scripts Ondansetron (ONDANSETRON ODT) 4 Mg Tab.rapdis, 1 TAB PO PRN Q6-8HRS for nausea for 30 Days, #16 TAB Prov:MARY RECINOS MD 06/05/19 Polyethylene Glycol 3350 (MIRALAX) 17 Gm Powd.pack, 1 PACKET PO DAILY for constipationj, #30 PACKET 3 Refills Prov:MARY RECINOS MD 06/05/19 Hydrocodone Bit/Acetaminophen (HYDROCODONE-APAP 5-325 ) 1 Tab Tablet, 1 TAB PO Q4H PRN for PAIN for 30 Days, #180 TAB 0 Refills Prov:MARY RECINOS MD 06/05/19 Sennosides/Docusate Sodium (Senna-S Laxative Tablet) 1 Each Tablet, 1 EACH PO BID for constipation for 30 Days, #60 TAB Prov:MARY RECINOS MD 06/05/19 Reported Medications Diltiazem HCl (Diltiazem 24Hr Cd) 240 Mg Cap.er.24h, 30 MG PO TID for afib, CAP.SR 06/02/20 Warfarin Sodium (WARFARIN SODIUM) 1 Mg Tablet, 0.5 MG PO DAILY for DVT, TAB 06/02/20 Phenytoin Sodium Extended (PHENYTOIN SODIUM EXTENDED) 300 Mg Capsule, 1 CAP PO QHS for seizures for 30 Days, #30 CAP 0 Refills 06/02/20 Oxybutynin Chloride (OXYBUTYNIN CHLORIDE ER) 5 Mg Tab.er.24, 1 TAB PO DAILY for urgency, #30 TAB 5 Refills 06/02/20 Warfarin Sodium (WARFARIN SODIUM) 3 Mg Tablet, 3 MG PO DAILY for BLOOD THINNER, #30 TAB 06/05/19 Lisinopril (LISINOPRIL) 20 Mg Tablet, 20 MG PO DAILY for FOR HYPERTENSION, #30 TAB 0 Refills 06/01/19 Folic Acid (FOLIC ACID) 1 Mg Tablet, 1 TAB PO HS for , #90 TAB 1 Refill 06/01/19 MARGARITA HUMPHREY III DO Jun 05, 2020 09:00
--- NOTE | 2020-06-05 09:50 | PDOC ---
[employer] PROGRESS NOTE Chief Complaint Chief Complaint Small FOOT SETTER hemorrhage Acute encephalopathy Hyponatremia Atrial fibrillation of meds - on diltiazem q 8hrs and warfarin Seizures -elevated dilantin levels, resolved Ex-smoker - stable Onychogryphosis History of Present Illness History of Present Illness 06/05/2020 Patient seen and examined Sitting in chair in NAD Discussed with RN Chart reviewed Dilantin level is down to 19.6 06/04/2020 Patient seen and examined She is intermittently confused And appears to possibly have a movement disorder? Discussed with RN Chart reviewed Dilantin level is down to 20 84yo F w/ PMHx afib, seizures, ex-smoker who presented to [facility] ED with worsening confusion over the last 3 days. Noted with disorientation and slurred speech but no focal neurologic deficits. Her daughter notes she is normally oriented and speaks fluently but over the last several days she has had worsening confusion and has unsteady gait. Patient's not been able to feed herself or regularly take her medications. CT head with 6.9 mm focus of hyperdensity at the base of the sulcus in the posterior right frontal lobe consistent with a small hemorrhage. CXR with cardiomegaly. EKG upon my review appears to be rate controlled A. fib in the 80s with no ST segment changes. Labs significant for NA 129, K3.8, BUN 9, CR 0.8, platelets 114, INR 2.9, WBC 9, Hb 11.8, platelets 212. Due to her new abnormality on CT head and lack of neurosurgery banking consultant at [facility] they contacted for transfer to [facility], accepted her for ICU admission. 06/03/2020 Patient seen and examined bedside. She it tolerating diet without choking spells. She has no obvious facial deficits. no pronator drift. Vitals/I&O Vitals/I&O: Vital Signs Date Time Temp Pulse Resp B/P (MAP) Pulse Ox O2 Delivery O2 Flow Rate FiO2 06/05/20 08:21 81 140/76 06/05/20 07:56 98.0 16 95 Room Air 98.0 I & O 06/04/20 06/04/20 06/05/20 15:00 23:00 07:00 Intake Total 480 ml 530 ml 400 ml Balance 480 ml 530 ml 400 ml Physical Exam Physical Exam: Alert, oriented, but intermittently confused EOMI, sclera non-icteric Neck supple RRR, no murmur CTAB, no wheezes, crackles or rhonchi Soft, NT, ND, normal bowel sounds, no rebound, guarding. Negative Zheng's sign. No edema, cyanosis. Normal capillary refill. Calm, cooperative, mood/affect within normal limits General: Alert, Cooperative, No acute distress Heart: Other (IRRR; tele AFIB- rate controlled ) Lungs: Clear Abdomen: Soft, No tenderness Extremities: No edema, Normal pulses Skin: No rashes, No breakdown, No significant lesion, Other (Poor nail care on feet) Labs Labs: Laboratory Tests Test 06/05/20 04:20 Phenytoin (Dilantin) Level 19.6 mcg/mL (10.0-20.0) Phenytoin Last Dose Date 06/02/20 Phenytoin Last Dose Time 2042 Review of Systems Review of Systems: Pertinent as per HPI otherwise 10 point review of system is negative Assessment and Plan Assessmemt and Plan Small FOOT SETTER hemorrhage Acute encephalopathy Hyponatremia Atrial fibrillation of meds - on diltiazem q 8hrs and warfarin Seizures -elevated dilantin levels, resolved Ex-smoker - stable Onychogryphosis PLAN Continue current care Resume Dilantin per neurology DVT prophylaxis Full code Appreciate subspecialist input Discharge disposition pending Comment Review of Relevant I have reviewed the following items andie (where applicable) has been applied. Medications: Current Medications Medications (Trade) Dose Ordered Sig/Melodie Route PRN Reason Start Time Stop Time Status Last Admin Dose Admin Metoprolol Succinate (Toprol Xl) 25 mg DAILY PO 06/04/20 14:15 06/05/20 08:21 Justicifation of Admission Dx: Justifications for Admission: Justification of Admission Dx: Yes MARGARITA HUMPHREY III DO Jun 05, 2020 09:50
--- NOTE | 2020-06-05 10:48 | PDOC ---
CARDIO Progress Notes Date and Time Date of Service 06/05/20 Time of Evaluation 1140 Subjective Subjective: No Chest Pain, No shortness of breath Vitals Vitals Vital Signs Date Time Temp Pulse Resp B/P (MAP) Pulse Ox O2 Delivery O2 Flow Rate FiO2 06/05/20 08:21 81 140/76 06/05/20 07:56 98.0 16 95 Room Air 98.0 Weight Weight [ ] Input and Output Intake and Output Intake and Output 06/05/20 07:00 Intake Total 1410 ml Balance 1410 ml Intake Oral 1410 ml # Voids 7 Laboratory Labs Laboratory Tests Test 06/05/20 04:20 Phenytoin (Dilantin) Level 19.6 mcg/mL (10.0-20.0) Phenytoin Last Dose Date 06/02/20 Phenytoin Last Dose Time 2042 Microbiology Micro Microbiology 06/02/20 Urine Culture - Final, Complete Physical Exam HEENT: Neck Supple W Full Motion Chest: Symmetric LUNGS: Clear to Auscultation Heart: S1S2, irregularly irregular Abdomen: Soft N/T Extremities: No Edema Neurology: alert, follow commands Assessment Assessment 1. Encephalopathy; CT head with hemorrhage versus artifact. MRI without acute infarct. Most probably due to UTI and elevated Dilantin level 2. AFIB; rate controlled on Cardizem. 3. Hx of seizure and on Dilantin 4. Ataxia/movement disorder with multiple falls 5. Hyponatremia, chronic 6. Hypertension; controlled 7. H/o DVT; on warfarin. INR 2.9 upon arrival. s/p vit K with concerns for hemorrhage. 8. UTI Recommendations Increase metoprolol for better rate control Poor long-term candidate for OAC given recurrent falls. Consider outpatient referral for KATHLEEN closure device Supportive care Okay to discharge to SNU Follow up in our office with Dr. Best as scheduled Justicifation of Admission Dx: Justifications for Admission: Justification of Admission Dx: Yes DUNIA TAM APRN Jun 05, 2020 10:48
[2020-06-05 11:00] VITALS: BP 130/73
[2020-06-05] MEDS ORDERED: METOPROLOL SUCC 24HR ER 25 MG TAB.ER.24H. PO ONE (11:30)
[2020-06-05 12:25] VITALS: BP 130/73
--- NOTE | 2020-06-05 13:11 | SNU/HH DC ---
DISCHARGE WITH HOME HEALTH DISCHARGE INFORMATION: Discharge Date: Jun 05, 2020 Condition on Discharge: Stable CODE STATUS: Code Status: Full HOME HEALTH: Face to Face: I certify this patient is under my care and that I, or a nurse practitioner or donovan clemente's assistant dean working with me, had a face to face encounter that meets the physician face to face encounter requirements with this patient on []. RN For Eval/Treatment: Yes Physical Therapy For: Evalulation/Treatment Occupational Therapy For: Evaluation/Treatment Pt Meets Homebound Status: Unsteady balance w/ amb,, Extreme weakness w/ amb., Fatigue w/ amb., Frequent falls w/ injury, Limited distance walking POST DISCHARGE ORDERS: Activity Instructions for Disc: Activity as tolerated DIET AFTER DISCHARGE: Cardiac FOLLOW-UP: PCP to follow Home Health: follow up with primary care physician for further home health orders as needed CERTIFICATION STATEMENT: Certification Statement: Certification Statement: Based on the above finding, I certify that this patient is confined to the home and needs intermittent detention care, physical therapy and/or speech therapy, or continues to need occupational therapy.~ This patient is under my care, and I have initiated the establishment of the plan of care.~ This patient will be followed by myself or a community physician who will periodically review the plan of care. Home Meds Active Scripts Ondansetron (ONDANSETRON ODT) 4 Mg Tab.rapdis, 1 TAB PO PRN Q6-8HRS for nausea for 30 Days, #16 TAB Prov:MARY RECINOS MD 06/05/19 Polyethylene Glycol 3350 (MIRALAX) 17 Gm Powd.pack, 1 PACKET PO DAILY for constipationj, #30 PACKET 3 Refills Prov:MARY RECINOS MD 06/05/19 Hydrocodone Bit/Acetaminophen (HYDROCODONE-APAP 5-325 ) 1 Tab Tablet, 1 TAB PO Q4H PRN for PAIN for 30 Days, #180 TAB 0 Refills Prov:MARY RECINOS MD 06/05/19 Sennosides/Docusate Sodium (Senna-S Laxative Tablet) 1 Each Tablet, 1 EACH PO BID for constipation for 30 Days, #60 TAB Prov:MARY RECINOS MD 06/05/19 Reported Medications Diltiazem HCl (Diltiazem 24Hr Cd) 240 Mg Cap.er.24h, 30 MG PO TID for afib, CAP.SR 06/02/20 Phenytoin Sodium Extended (PHENYTOIN SODIUM EXTENDED) 300 Mg Capsule, 1 CAP PO QHS for seizures for 30 Days, #30 CAP 0 Refills 06/02/20 Oxybutynin Chloride (OXYBUTYNIN CHLORIDE ER) 5 Mg Tab.er.24, 1 TAB PO DAILY for urgency, #30 TAB 5 Refills 06/02/20 Lisinopril (LISINOPRIL) 20 Mg Tablet, 20 MG PO DAILY for FOR HYPERTENSION, #30 TAB 0 Refills 06/01/19 Folic Acid (FOLIC ACID) 1 Mg Tablet, 1 TAB PO HS for , #90 TAB 1 Refill 06/01/19 Discontinued Reported Medications Warfarin Sodium (WARFARIN SODIUM) 1 Mg Tablet, 0.5 MG PO DAILY for DVT, TAB 06/02/20 Warfarin Sodium (WARFARIN SODIUM) 3 Mg Tablet, 3 MG PO DAILY for BLOOD THINNER, #30 TAB 06/05/19 MARGARITA HUMPHREY III DO Jun 05, 2020 13:11
[2020-06-05] MEDS ORDERED: METO50TA4 PO ×2 (14:40→14:42)
--- NOTE | 2020-06-05 15:43 | NUR ---
Discharge Note: MEGAN ELLIOTT Discharge instructions and discharge home medications reviewed with Patient and a copy given. All questions have been answered and understanding verbalized. The following instructions and handouts were given: Patient given education regarding follow ups and medications. Discontinued lines and drains: IV removed per protocol. Patient discharged home, picked up by family members.
--- NOTE | 2020-06-05 15:53 | NUR ---
SW following. Spoke with RN and CM. Reviewed chart. Coordinated care with Dr. Keller. AARON spoke with Shae from pt's insurance company and pt was denied SNU. AARON informed Dr. Keller that he can request a peer to peer by calling [phone]. Spoke with pt and pt's dtr Mary Jane ([phone]) and they are agreeable to HH. AARON obtained discharge orders. AARON phoned and faxed clinicals and discharge orders to [facility], , (fax) as they take pt's insurance. [facility] Pt to discharge home today with her daughter on oral medications and room air. No further AARON needs at this time. Addendum: 06/07/20 at 1412 by BETTINA WALKER Phone call from pt's dtr Mary Jane with questions about HH scheduling. AARON directed her to call [facility]. Spoke with Wendy from [employer] who will also follow up with Mary Jane.
[2020-06-05] MEDS ORDERED: PHENYTOIN SODIUM EXTENDED 100 MG CAPSULE PO SCH (21:00)
[2020-06-06] MEDS ORDERED: METOPROLOL SUCC 24HR ER 50 MG TAB.ER.24H. PO SCH (09:00)
--- NOTE | 2020-07-02 12:56 | DS ---
DATE OF DISCHARGE: 06/05/2020 ADMISSION DIAGNOSIS: Small central nervous system hemorrhage. DISCHARGE DIAGNOSES: Resolving central nervous system hemorrhage, resolving acute encephalopathy, hyponatremia, AFib, seizures, previous tobacco abuse. CONSULTS: Podiatry, Cardiology and Neurology. PROCEDURES: None. HOSPITAL COURSE: The patient is a pleasant middle-aged female who presented with some mental status change. We did a CAT scan showed a small bleed. She was admitted. The above consults were obtained. We observed her. We had Dr. Humza Funes who trim her toenails while she was here. We did some physical therapy, occupational therapy and overall she did great. We discharged to home. DISPOSITION: Home. ACTIVITY: As tolerated. DIET: Low sodium. MEDICATIONS: Please see the MRAD. TOTAL TIME: 36 minutes. MARGARITA HUMPHREY DO DR: CAROLINA/zulema JOB#: [id number] / [id number]
== END 2020-06-05 15:19 | disposition home health service (06) | DRG 64 ==
LOC: 1 WEST ICU 10:19 → 5 NORTH 06-03 14:40
PROVIDERS: ADMIT Internal Medicine; ATTEND Internal Medicine
PROC: 0HBRXZZ Excision of Toe Nail, External Approach (ICD-10-PCS; principal; 2020-06-03)
PROC: 0HBRXZZ Excision of Toe Nail, External Approach (ICD-10-PCS; 2020-06-03)
PROC: 0HBRXZZ Excision of Toe Nail, External Approach (ICD-10-PCS; 2020-06-03)
PROC: 0HBRXZZ Excision of Toe Nail, External Approach (ICD-10-PCS; 2020-06-03)
PROC: 0HBRXZZ Excision of Toe Nail, External Approach (ICD-10-PCS; 2020-06-03)
PROC: 0HBRXZZ Excision of Toe Nail, External Approach (ICD-10-PCS; 2020-06-03)
PROC: 0HBRXZZ Excision of Toe Nail, External Approach (ICD-10-PCS; 2020-06-03)
PROC: 0HBRXZZ Excision of Toe Nail, External Approach (ICD-10-PCS; 2020-06-03)
PROC: 0HBRXZZ Excision of Toe Nail, External Approach (ICD-10-PCS; 2020-06-03)
PROC: 0HBRXZZ Excision of Toe Nail, External Approach (ICD-10-PCS; 2020-06-03)
DX: I62.9 Nontraumatic intracranial hemorrhage, unspecified (principal); G93.41 Metabolic encephalopathy; E87.1 Hypo-osmolality and hyponatremia; N39.0 Urinary tract infection, site not specified; B35.1 Tinea unguium; G25.5 Other chorea; G40.909 Epilepsy, unspecified, not intractable, without status epilepticus; I11.9 Hypertensive heart disease without heart failure; I48.91 Unspecified atrial fibrillation; I73.9 Peripheral vascular disease, unspecified; L60.0 Ingrowing nail; L60.1 Onycholysis; L60.2 Onychogryphosis; R29.6 Repeated falls; T42.0X5A Adverse effect of hydantoin derivatives, initial encounter; Z79.01 Long term (current) use of anticoagulants; Z66 Do not resuscitate; Z82.49 Family history of ischemic heart disease and other diseases of the circulatory system; Z86.718 Personal history of other venous thrombosis and embolism; Z87.891 Personal history of nicotine dependence; Z96.641 Presence of right artificial hip joint; M19.90 Unspecified osteoarthritis, unspecified site
CPT/HCPCS: 36415; 70551; 80048; 80185; 81001; 82607; 84443; 85025; 85610; 86140; 87086; 99285; J0696; 92610-GN; 97110-GP; 97116-GP; 97530-GO; 97530-GP; 97535-GO; G0378